=== PATIENT | female | born 1930 | race Two or more races ===

== ENCOUNTER 2018-03-27 12:02 | Inpatient (IN) | payer MEDICARE, OTHER ==
[~2018-03-27] VITALS: Ht 162.6 cm; Wt 78.7 kg
[2018-03-27] MEDS ORDERED: LIDO PO (14:31)
[2018-03-27] MEDS ORDERED: lidoderm TD (14:31)
[2018-03-27] MEDS ORDERED: ANTACID PO (14:31)
[2018-03-27] MEDS ORDERED: DOCU-109 PO (14:31)
[2018-03-27] MEDS ORDERED: OLAN10VI2 IM (14:31)
[2018-03-27] MEDS ORDERED: DIVA500T4 PO (14:31)
[2018-03-27] MEDS ORDERED: TYLENOL PO (14:31)
[2018-03-27] MEDS ORDERED: OLAN5TAB3 PO (14:31)
[2018-03-27] MEDS ORDERED: CALC400T5 PO (14:31)
[2018-03-27] MEDS ORDERED: POLY17PO5 PO (14:31)
[2018-03-27] MEDS ORDERED: LEVO75TA5 PO (14:31)
[2018-03-27] MEDS ORDERED: LISI10TA2 PO (14:31)
[2018-03-27] MEDS ORDERED: ACET650S19 PO (14:31)
[2018-03-27] MEDS ORDERED: ASPI325T11 PO (14:31)
[2018-03-27] MEDS ORDERED: CARV6.25 PO (14:31)
[2018-03-27] MEDS ORDERED: AMLO10TA6 PO (14:31)
[2018-03-27] MEDS ORDERED: TRIM300C17 PO (14:31)
[2018-03-27] MEDS ORDERED: HYDR-2867 PO (14:31)
[2018-03-27] MEDS ORDERED: ALBU2.5V14 NEB (14:31)
[2018-03-27] MEDS ORDERED: HYDR-2155 PO (14:31)
[2018-03-27] MEDS ORDERED: AMMO120C TP (14:31)
[2018-03-27] MEDS ORDERED: MELA5TAB PO (14:31)
[2018-03-27] MEDS ORDERED: BISA10SU55 RC (14:31)
[2018-03-27] MEDS ORDERED: PANT40TA3 PO (14:31)
[2018-03-27] MEDS ORDERED: SENN-142 PO (14:31)
[2018-03-27] MEDS ORDERED: BUDE10.2 IH (14:31)
[2018-03-27] MEDS ORDERED: TRAZ-85 PO ×2 (14:31→17:00)
[2018-03-27] MEDS ORDERED: ENOX40DI SQ (14:31)
[2018-03-27] MEDS ORDERED: ATOR20TA PO (14:31)
[2018-03-27] MEDS ORDERED: IPRA0.2S5 IH (14:31)
[2018-03-27] MEDS ORDERED: SODI50DR NS (14:31)
[2018-03-27] MEDS ORDERED: DONE10TA7 PO (14:31)
[2018-03-27] MEDS ORDERED: VENL50TA PO (14:32)
[2018-03-27] MEDS ORDERED: MULT1TAB52 PO (14:32)
[2018-03-27] MEDS ORDERED: PHEN100T82 PO (17:00)
[2018-03-27] MEDS ORDERED: occuvite PO (17:00)
[2018-03-27] MEDS ORDERED: ESTR30CR VG (17:00)
[2018-03-27 18:33] VITALS: BP 109/71
[2018-03-27] MEDS ORDERED: METHYL SALICYLATE/MENTHOL TOPICAL OINTMENT 29GM TUBE. TP PRN (18:45)
[2018-03-27] MEDS ORDERED: MAG HYDROX/AL HYDROX/SIMETH 30 ML ORAL.SUSP PO PRN (18:45)
[2018-03-27] MEDS ORDERED: MAGNESIUM HYDROXIDE 2,400 MG/30 ML ORAL.SUSP. PO PRN (18:45)
[2018-03-27] MEDS ORDERED: ESTROGENS, CONJ VAGINAL CREAM 30GM TUBE. VG PRN (19:15)
[2018-03-27] MEDS ORDERED: NON FORMULARY ITEM (Albuterol Sulfate (Albuterol Sulfate Conc Neb Soln) 2.5 MG) NEB PRN (19:15)
[2018-03-27] MEDS ORDERED: IPRATROPIUM BROMIDE 0.5 MG/2.5 ML NEBU. IH PRN (19:15)
[2018-03-27] MEDS ORDERED: traZODone 50 MG TABLET. PO PRN ×2 (19:45)
[2018-03-27] MEDS ORDERED: ALBUTEROL SULFATE 2.5 MG/3 ML NEBU. NEB PRN (19:45)
[2018-03-27] MEDS ORDERED: DOCUSATE SODIUM 100 MG CAPSULE PO PRN (19:45)
[2018-03-27] MEDS ORDERED: PHENAZOPYRIDINE 100 MG TABLET. PO PRN (19:45)
[2018-03-27] MEDS: ALBUTEROL SULFATE 2.5 MG/3 ML NEBU. NEB SCH (20:43)
[2018-03-27] MEDS: BUDESONIDE 0.5 MG/2 ML NEBU NEB SCH (20:43)
[2018-03-27] MEDS: DONEPEZIL HCL 10 MG TABLET PO SCH (20:53)
[2018-03-27] MEDS: ATORVASTATIN CALCIUM 20 MG TABLET PO SCH (20:53)
[2018-03-27] MEDS: hydrALAZINE 10 MG TABLET PO SCH (20:54)
[2018-03-27] MEDS: CARVEDILOL 6.25 MG TABLET PO SCH (20:55)
[2018-03-27] MEDS: PATCH REMOVAL. MC SCH (20:55)
[2018-03-27] MEDS: SODIUM CHL/ALOE VERA NASAL GEL 14.1GM TUBE. NS SCH (20:56)
[2018-03-27] MEDS ORDERED: DIVALPROEX ER 250 MG TAB.ER.24H. PO SCH (21:00)
[2018-03-27] MEDS ORDERED: SODIUM CHLORIDE 0.65% NASAL SPRAY 45ML BOTTLE. NS SCH (21:00)
[2018-03-27] MEDS ORDERED: NON FORMULARY ITEM (Budesonide/Formoterol Fumarate (Symbicort 160-4.5 Mcg Inhaler) 2 PUFF) IH SCH (21:00)
--- NOTE | 2018-03-27 22:46 | PDOC ---
Exam Note: Akshat Note: Please also refer to the separate dictated note~for this date of service dictated separately. Discussed the patient with Nursing staff reviewed the chart.~Reviewed interim history and current functioning. Reviewed vital signs,~ Labs/ Radiology~and current medications noted below. Continue current treatment with the changes noted in the dictated addendum note Assessment: Vital Signs: Vital Signs Date Time Temp Pulse Resp B/P (MAP) Pulse Ox O2 Delivery O2 Flow Rate FiO2 03/27/18 20:55 93 108/72 03/27/18 20:45 93 Room Air 03/27/18 18:33 98.9 22 2.0 Current Medications: Meds: Current Medications Multi-Ingredient Ointment (Analgesic [place]) 1 attila PRN QID PRN TP MUSCLE PAIN; Start 03/27/18 at 18:45 Al Hydroxide/Mg Hydroxide (Mylanta Plus Xs) 15 ml PRN AFTMEALHC PRN PO DYSPEPSIA; Start 03/27/18 at 18:45 Magnesium Hydroxide (Milk Of Magnesia) 2,400 mg PRN QHS PRN PO CONSTIPATION; Start 03/27/18 at 18:45 Aspirin (Aspirin Enteric Coated) 325 mg DAILY PO ; Start 03/28/18 at 09:00 Atorvastatin Calcium (Lipitor) 20 mg QHS PO Last administered on 03/27/18at 20: 53; Start 03/27/18 at 21:00 Estrogens Conjugated (Premarin) 0.5 attila PRN DAILY PRN VG vaginal dryness; Start 03/27/18 at 19:15 Acetaminophen/ Hydrocodone Bitart (Lortab 5/325) 1 tab PRN Q12HR PRN PO PAIN; Start 03/27/18 at 19:15 Ipratropium Basom (Atrovent) 0.2 mg PRN Q6HRS PRN IH SHORTNESS OF BREATH; Start 03/27/18 at 19:15 Levothyroxine Sodium (Synthroid) 75 mcg DAILYAC PO ; Start 03/28/18 at 07:30 Lisinopril (Prinivil) 10 mg DAILY PO ; Start 03/28/18 at 09:00 Acetaminophen (Tylenol) 650 mg PRN Q6HRS PRN PO PAIN / TEMP; Start 03/27/18 at 19:45 Non-Formulary Medication (Albuterol Sulfate (Albuterol Sulfate Conc Neb Soln)) 2.5 mg PRN Q6HRS PRN NEB SHORTNESS OF BREATH; Start 03/27/18 at 19:15; Status UNV Amlodipine Besylate (Norvasc) 10 mg DAILY PO ; Start 03/28/18 at 09:00 Non-Formulary Medication (Budesonide/ Formoterol Fumarate (Symbicort 160-4.5 Mcg Inhaler)) 2 puff BID IH ; Start 03/27/18 at 21:00; Status UNV Carvedilol (Coreg) 6.25 mg BIDWMEALS PO Last administered on 03/27/18at 20:55; Start 03/27/18 at 20:00 Divalproex Sodium (Depakote Er) 750 mg QHS PO Last administered on 03/27/18at 20:53; Start 03/27/18 at 21:00 Docusate Sodium (Colace) 100 mg PRN DAILY PRN PO HARD STOOLS; Start 03/27/18 at 19:45 Donepezil HCl (Aricept) 10 mg QHS PO Last administered on 03/27/18at 20:53; Start 03/27/18 at 21:00 Enoxaparin Sodium (Lovenox 40mg Syringe) 40 mg DAILY SQ ; Start 03/28/18 at 09: 00 Hydralazine HCl (Apresoline) 10 mg TID PO Last administered on 03/27/18at 20:54 ; Start 03/27/18 at 21:00 Multivitamins/ Calcium (Thera-M Plus) 1 tab DAILY PO ; Start 03/28/18 at 09:00 Olanzapine (ZyPREXA) 5 mg PRN DAILY PRN PO ANXIETY/AGITATION; Start 03/28/18 at 09:00 Pantoprazole Sodium (Protonix) 40 mg DAILYAC PO ; Start 03/28/18 at 07:30 Phenazopyridine HCl (Pyridium) 100 mg PRN TID PRN PO URINARY PAIN; Start 03/27 at 19:45 Polyethylene Glycol (miraLAX) 17 gm PRN BID PRN PO CONSTIPATION; Start at 09:00 Sodium Chloride (Saline Mist Nasal) 1 attila QID NS ; Start 03/27/18 at 21:00; Status Cancel Trazodone HCl (Desyrel) 25 mg PRN BID PRN PO ANXIETY/AGITATION; Start at 19:45 Trazodone HCl (Desyrel) 50 mg PRN QHS PRN PO INSOMNIA; Start 03/27/18 at 19:45 Lidocaine (Lidoderm) 1 patch DAILY TD ; Start 03/28/18 at 09:00 Multivitamins/ Minerals (I-Angelo) 1 tab DAILY PO ; Start 03/28/18 at 09:00 Miscellaneous (Lidoderm Patch Removal) 1 ea QHS MC Last administered on at 20:55; Start 03/27/18 at 21:00 Albuterol Sulfate (Ventolin) 2.5 mg PRN Q6HRS PRN NEB SHORTNESS OF BREATH; Start 03/27/18 at 19:45 Albuterol Sulfate (Ventolin) 2.5 mg RTQID NEB Last administered on 03/27/18at 20:43; Start 03/27/18 at 20:00 Budesonide (Pulmicort) 0.5 mg RTBID NEB Last administered on 03/27/18at 20:43; Start 03/27/18 at 20:00 Sodium Chloride ([place] Saline Nasal) 2 attila QID NS ; Start 03/27/18 at 21:00 Active Scripts Active Reported [occuvite] 1 Tab PO DAILY Pyridium (Phenazopyridine Hcl) 100 Mg Tablet 100 Mg PO PRN TID PRN Trazodone Hcl 50 Mg Tablet 25 Mg PO PRN QHS PRN Premarin (Estrogens, Conjugated) 30 Gm Cream.appl 0.5 Gm VG PRN DAILY PRN Multivitamins (Multivitamin) 1 Each Tablet 1 Tab PO DAILY Trazodone Hcl 50 Mg Tablet 25 Mg PO BID PRN [place] Saline (Sodium Chloride) 50 Ml Drops 2 Drop NS QID Miralax (Polyethylene Glycol 3350) 17 Gm Powd.pack 17 Gm PO PRN BID PRN Protonix (Pantoprazole Sodium) 40 Mg Tablet.dr 40 Mg PO DAILY Zyprexa (Olanzapine) 5 Mg Tablet 5 Mg PO PRN DAILY PRN Lisinopril 10 Mg Tablet 10 Mg PO DAILY [lidoderm] 1 Patch TD DAILY Levothyroxine Sodium 75 Mcg Tablet 75 Mcg PO DAILYAC Ipratropium Basom 0.2 Mg/1 Ml Solution 0.2 Mg IH PRN Q6HRS PRN Hydrocodone-Apap 5-325 (Hydrocodone Bit/Acetaminophen) 1 Each Tablet 1 Tab PO PRN Q12HR PRN Hydralazine Hcl 10 Mg Tablet 10 Mg PO TID Lovenox (Enoxaparin Sodium) 40 Mg/0.4 Ml Disp.syrin 40 Mg SQ DAILY Donepezil Hcl 10 Mg Tablet 10 Mg PO HS Colace (Docusate Sodium) 100 Mg Capsule 100 Mg PO PRN DAILY PRN Depakote Er (Divalproex Sodium) 500 Mg Tab.er.24h 750 Mg PO HS Coreg (Carvedilol) 6.25 Mg Tablet 6.25 Mg PO BIDWMEALS Symbicort 160-4.5 Mcg Inhaler (Budesonide/Formoterol Fumarate) 10.2 Gm Hfa.aer.ad 2 Puff IH BID Lipitor (Atorvastatin Calcium) 20 Mg Tablet 20 Mg PO QHS Aspirin Ec (Aspirin) 325 Mg Tablet.dr 325 Mg PO DAILY Amlodipine Besylate 10 Mg Tablet 10 Mg PO DAILY Albuterol Sulfate Conc Neb Soln (Albuterol Sulfate) 2.5 Mg/0.5 Ml Vial.neb 2.5 Mg NEB PRN Q6HRS PRN Acetaminophen 650 Mg/20.3 Ml Solution 650 Mg PO PRN Q6HRS PRN I have reviewed the current psychotropics carefully including drug interactions. Risk benefit ratio favors no change other than as noted in my dictated progress note. Diagnosis: Problems: (1) Anxiety disorder (2) Major depressive disorder, recurrent episode (3) Psychosis, atypical (4) Impulse control disorder GWEN ROY MD Mar 27, 2018 22:46
[2018-03-28] MEDS: ALBUTEROL SULFATE 2.5 MG/3 ML NEBU. NEB SCH ×4 (05:15→20:33)
[2018-03-28 06:44] VITALS: BP 134/89
[2018-03-28] MEDS ORDERED: LEVOTHYROXINE 75 MCG TABLET PO SCH (07:30)
[2018-03-28] MEDS: LIDOCAINE (700MG/PATCH) PATCH. TD SCH (08:39)
[2018-03-28] MEDS: amLODIPine BESYLATE 10 MG TABLET PO SCH (08:40)
[2018-03-28] MEDS: MULTIVITAMIN I-VITE TABLET. PO SCH (08:40)
[2018-03-28] MEDS: ENOXAPARIN 40 MG/0.4 ML SYRINGE. SQ SCH (08:40)
[2018-03-28] MEDS: hydrALAZINE 10 MG TABLET PO SCH ×3 (08:41→21:11)
[2018-03-28] MEDS: LISINOPRIL 10 MG TABLET PO SCH (08:41)
[2018-03-28] MEDS: CARVEDILOL 6.25 MG TABLET PO SCH ×2 (08:42→17:22)
[2018-03-28] MEDS: MULTIVITAMIN with MINERAL TABLET. PO SCH (08:42)
[2018-03-28] MEDS: PANTOPRAZOLE 40 MG TABLET. PO SCH (08:42)
[2018-03-28] MEDS: ASPIRIN ENTERIC COATED 325 MG TABLET.DR. PO SCH (08:42)
[2018-03-28] MEDS ORDERED: POLYETHYLENE GLYCOL 3350 17 GM PACKET. PO PRN (09:00)
[2018-03-28] MEDS: SODIUM CHL/ALOE VERA NASAL GEL 14.1GM TUBE. NS SCH ×2 (09:00→12:23)
[2018-03-28] MEDS: BUDESONIDE 0.5 MG/2 ML NEBU NEB SCH ×2 (10:05→20:33)
[2018-03-28] MEDS: OLANZapine 5 MG TABLET PO PRN (12:35)
[2018-03-28] MEDS ORDERED: SODIUM CHLORIDE 0.65% NASAL SPRAY 45ML BOTTLE. NS PRN (13:15)
[2018-03-28 13:37] LABS: BACTERIA,URINE FEW /HPF (0-FEW); BILIRUBIN,URINE NEG (NEG); CLARITY,URINE HAZY; COLOR,URINE AMBER; GLUCOSE,URINE NEG (NEG); HYALINE CASTS, URINE OCC /HPF; NITRITE,URINE NEG (NEG); SQUAMOUS EPITHELIAL CELL,UR FEW /LPF; UROBILINOGEN,URINE 0.2 mg/dL (0.2 mg/dL)
[2018-03-28 16:15] VITALS: BP 154/68
[2018-03-28 16:38] LABS: BASO % 1 % (0-3); EOS # 0.2 x10^3/uL (0.0-0.7); EOS % 3 % (0-3); HEMATOCRIT 38.8 % (36.0-47.0); HEMOGLOBIN 12.8 g/dL (12.0-15.5); LYMPH # 1.5 x10^3/uL (1.0-4.8); LYMPH % 22 % (24-48); MEAN CORPUSCULAR HEMOGLOBIN 31 pg (25-35); MEAN CORPUSCULAR HGB CONC 33 g/dL (31-37); MEAN CORPUSCULAR VOLUME 94 fL (79-100); MONO # 0.7 x10^3/uL (0.0-1.1); MONO % 11 % (0-9); NEUT # 4.3 x10^3uL (1.8-7.7); NEUT % 64 % (31-73); PLATELET COUNT 205 x10^3/uL (140-400); RED BLOOD COUNT 4.15 x10^6/uL (3.50-5.40); RED CELL DISTRIBUTION WIDTH 16.1 % (11.5-14.5); WHITE BLOOD COUNT 6.7 x10^3/uL (4.0-11.0)
[2018-03-28 16:46] LABS: ALBUMIN 2.7 g/dL (3.4-5.0); ALBUMIN/GLOBULIN RATIO 0.8 (1.0-1.7); CALCIUM 8.4 mg/dL (8.5-10.1); CREATININE 0.8 mg/dL (0.6-1.0); GFR 67.8; POTASSIUM 3.9 mmol/L (3.5-5.1); TOTAL BILIRUBIN 0.3 mg/dL (0.2-1.0)
[2018-03-28] MEDS: PATCH REMOVAL. MC SCH (21:00)
[2018-03-28] MEDS: DONEPEZIL HCL 10 MG TABLET PO SCH (21:11)
[2018-03-28] MEDS: ATORVASTATIN CALCIUM 20 MG TABLET PO SCH (21:11)
[2018-03-28] MEDS: DIVALPROEX 125 MG CAP.SPRINK PO SCH (21:18)
--- NOTE | 2018-03-28 22:07 | PDOC ---
Exam Note: Akshat Note: Please also refer to the separate dictated note~for this date of service dictated separately.~Patient seen individually. Discussed the patient with Nursing staff reviewed the chart.~Reviewed interim history and current functioning. Reviewed vital signs,~Labs/ Radiology~and current medications noted below. Continue current treatment with the changes noted in the dictated addendum note Assessment: Vital Signs: Vital Signs Date Time Temp Pulse Resp B/P (MAP) Pulse Ox O2 Delivery O2 Flow Rate FiO2 03/28/18 21:11 79 154/68 03/28/18 20:30 93 Nasal Cannula 2.0 03/28/18 16:15 98.2 18 Labs: Laboratory Tests Test 03/28/18 12:55 03/28/18 16:25 Urine Collection Type Unknown Urine Color Phyllis Urine Clarity Hazy Urine pH 7.0 Urine Specific [place] 1.015 Urine Protein Neg (NEG-TRACE) Urine Glucose (UA) Neg mg/dL (NEG) Urine Ketones (Stick) 15 mg/dL (NEG) Urine Blood Neg (NEG) Urine Nitrite Neg (NEG) Urine Bilirubin Neg (NEG) Urine Urobilinogen Dipstick 0.2 mg/dL (0.2 mg/dL) Urine Leukocyte Esterase Small (NEG) Urine RBC 1-2 /HPF (0-2) Urine WBC 11-20 /HPF (0-4) Urine Squamous Epithelial Cells Few /LPF Urine Bacteria Few /HPF (0-FEW) Urine Hyaline Casts Occ /HPF Urine Mucus Slight /LPF White Blood Count 6.7 x10^3/uL (4.0-11.0) Red Blood Count 4.15 x10^6/uL (3.50-5.40) Hemoglobin 12.8 g/dL (12.0-15.5) Hematocrit 38.8 % (36.0-47.0) Mean Corpuscular Volume 94 fL (79-100) Mean Corpuscular Hemoglobin 31 pg (25-35) Mean Corpuscular Hemoglobin Concent 33 g/dL (31-37) Red Cell Distribution Width 16.1 % (11.5-14.5) H Platelet Count 205 x10^3/uL (140-400) Neutrophils (%) (Auto) 64 % (31-73) Lymphocytes (%) (Auto) 22 % (24-48) L Monocytes (%) (Auto) 11 % (0-9) H Eosinophils (%) (Auto) 3 % (0-3) Basophils (%) (Auto) 1 % (0-3) Neutrophils # (Auto) 4.3 x10^3uL (1.8-7.7) Lymphocytes # (Auto) 1.5 x10^3/uL (1.0-4.8) Monocytes # (Auto) 0.7 x10^3/uL (0.0-1.1) Eosinophils # (Auto) 0.2 x10^3/uL (0.0-0.7) Basophils # (Auto) 0.0 x10^3/uL (0.0-0.2) Sodium Level 145 mmol/L (136-145) Potassium Level 3.9 mmol/L (3.5-5.1) Chloride Level 106 mmol/L (98-107) Carbon Dioxide Level 33 mmol/L (21-32) H Anion Gap 6 (6-14) Blood Urea Nitrogen 23 mg/dL (7-20) H Creatinine 0.8 mg/dL (0.6-1.0) Estimated GFR (Cockcroft-Gault) 67.8 BUN/Creatinine Ratio 29 (6-20) H Glucose Level 99 mg/dL (70-99) Calcium Level 8.4 mg/dL (8.5-10.1) L Magnesium Level 2.0 mg/dL (1.8-2.4) Total Bilirubin 0.3 mg/dL (0.2-1.0) Aspartate Amino Transferase (AST) 16 U/L (15-37) Alanine Aminotransferase (ALT) 21 U/L (14-59) Alkaline Phosphatase 43 U/L (46-116) L Total Protein 6.0 g/dL (6.4-8.2) L Albumin 2.7 g/dL (3.4-5.0) L Albumin/Globulin Ratio 0.8 (1.0-1.7) L Current Medications: Meds: Current Medications Multi-Ingredient Ointment (Analgesic [place]) 1 attila PRN QID PRN TP MUSCLE PAIN; Start 03/27/18 at 18:45 Al Hydroxide/Mg Hydroxide (Mylanta Plus Xs) 15 ml PRN AFTMEALHC PRN PO DYSPEPSIA; Start 03/27/18 at 18:45 Magnesium Hydroxide (Milk Of Magnesia) 2,400 mg PRN QHS PRN PO CONSTIPATION; Start 03/27/18 at 18:45 Aspirin (Aspirin Enteric Coated) 325 mg DAILY PO Last administered on at 08:42; Start 03/28/18 at 09:00 Atorvastatin Calcium (Lipitor) 20 mg QHS PO Last administered on 03/28/18at 21: 11; Start 03/27/18 at 21:00 Estrogens Conjugated (Premarin) 0.5 attila PRN DAILY PRN VG vaginal dryness; Start 03/27/18 at 19:15 Acetaminophen/ Hydrocodone Bitart (Lortab 5/325) 1 tab PRN Q12HR PRN PO PAIN; Start 03/27/18 at 19:15 Ipratropium [place] (Atrovent) 0.2 mg PRN Q6HRS PRN IH SHORTNESS OF BREATH; Start 03/27/18 at 19:15 Levothyroxine Sodium (Synthroid) 75 mcg DAILYAC PO Last administered on at 08:40; Start 03/28/18 at 07:30; Stop 03/28/18 at 12:26; Status DC Lisinopril (Prinivil) 10 mg DAILY PO Last administered on 03/28/18at 08:41; Start 03/28/18 at 09:00 Acetaminophen (Tylenol) 650 mg PRN Q6HRS PRN PO PAIN / TEMP; Start 03/27/18 at 19:45 Non-Formulary Medication (Albuterol Sulfate (Albuterol Sulfate Conc Neb Soln)) 2.5 mg PRN Q6HRS PRN NEB SHORTNESS OF BREATH; Start 03/27/18 at 19:15; Status UNV Amlodipine Besylate (Norvasc) 10 mg DAILY PO Last administered on 03/28/18at 08 :40; Start 03/28/18 at 09:00 Non-Formulary Medication (Budesonide/ Formoterol Fumarate (Symbicort 160-4.5 Mcg Inhaler)) 2 puff BID IH ; Start 03/27/18 at 21:00; Status UNV Carvedilol (Coreg) 6.25 mg BIDWMEALS PO Last administered on 03/28/18at 17:22; Start 03/27/18 at 20:00 Divalproex Sodium (Depakote Er) 750 mg QHS PO Last administered on 03/27/18at 20:53; Start 03/27/18 at 21:00; Stop 03/28/18 at 21:13; Status DC Docusate Sodium (Colace) 100 mg PRN DAILY PRN PO HARD STOOLS; Start 03/27/18 at 19:45 Donepezil HCl (Aricept) 10 mg QHS PO Last administered on 03/28/18at 21:11; Start 03/27/18 at 21:00 Enoxaparin Sodium (Lovenox 40mg Syringe) 40 mg DAILY SQ Last administered on at 08:40; Start 03/28/18 at 09:00 Hydralazine HCl (Apresoline) 10 mg TID PO Last administered on 03/28/18at 21:11 ; Start 03/27/18 at 21:00 Multivitamins/ Calcium (Thera-M Plus) 1 tab DAILY PO Last administered on 03/28at 08:42; Start 03/28/18 at 09:00 Olanzapine (ZyPREXA) 5 mg PRN DAILY PRN PO ANXIETY/AGITATION Last administered on 03/28/18at 12:35; Start 03/28/18 at 09:00 Pantoprazole Sodium (Protonix) 40 mg DAILYAC PO Last administered on at 08:42; Start 03/28/18 at 07:30 Phenazopyridine HCl (Pyridium) 100 mg PRN TID PRN PO URINARY PAIN; Start 03/27 at 19:45 Polyethylene Glycol (miraLAX) 17 gm PRN BID PRN PO CONSTIPATION; Start at 09:00 Sodium Chloride (Saline Mist Nasal) 1 attila QID NS ; Start 03/27/18 at 21:00; Status Cancel Trazodone HCl (Desyrel) 25 mg PRN BID PRN PO ANXIETY/AGITATION; Start at 19:45 Trazodone HCl (Desyrel) 50 mg PRN QHS PRN PO INSOMNIA; Start 03/27/18 at 19:45 Lidocaine (Lidoderm) 1 patch DAILY TD Last administered on 03/28/18at 08:39; Start 03/28/18 at 09:00 Multivitamins/ Minerals (I-Angelo) 1 tab DAILY PO Last administered on at 08:40; Start 03/28/18 at 09:00 Miscellaneous (Lidoderm Patch Removal) 1 ea QHS MC Last administered on at 21:00; Start 03/27/18 at 21:00 Albuterol Sulfate (Ventolin) 2.5 mg PRN Q6HRS PRN NEB SHORTNESS OF BREATH; Start 03/27/18 at 19:45 Albuterol Sulfate (Ventolin) 2.5 mg RTQID NEB Last administered on 03/28/18at 20:33; Start 03/27/18 at 20:00 Budesonide (Pulmicort) 0.5 mg RTBID NEB Last administered on 03/28/18at 20:33; Start 03/27/18 at 20:00 Sodium Chloride ([place] Saline Nasal) 2 attila QID NS ; Start 03/27/18 at 21:00; Stop 03/28/18 at 13:08; Status DC Levothyroxine Sodium (Synthroid) 75 mcg DAILY06 PO ; Start 03/29/18 at 06:00 Sodium Chloride (Saline Mist Nasal) 1 attila PRN QID PRN NS NASAL CONGESTION; Start 03/28/18 at 13:15 Divalproex Sodium (Depakote Sprinkles) 750 mg HS PO Last administered on at 21:18; Start 03/28/18 at 21:30 Active Scripts Active Reported [occuvite] 1 Tab PO DAILY Pyridium (Phenazopyridine Hcl) 100 Mg Tablet 100 Mg PO PRN TID PRN Trazodone Hcl 50 Mg Tablet 25 Mg PO PRN QHS PRN Premarin (Estrogens, Conjugated) 30 Gm Cream.appl 0.5 Gm VG PRN DAILY PRN Multivitamins (Multivitamin) 1 Each Tablet 1 Tab PO DAILY Trazodone Hcl 50 Mg Tablet 25 Mg PO BID PRN [place] Saline (Sodium Chloride) 50 Ml Drops 2 Drop NS QID Miralax (Polyethylene Glycol 3350) 17 Gm Powd.pack 17 Gm PO PRN BID PRN Protonix (Pantoprazole Sodium) 40 Mg Tablet.dr 40 Mg PO DAILY Zyprexa (Olanzapine) 5 Mg Tablet 5 Mg PO PRN DAILY PRN Lisinopril 10 Mg Tablet 10 Mg PO DAILY [lidoderm] 1 Patch TD DAILY Levothyroxine Sodium 75 Mcg Tablet 75 Mcg PO DAILYAC Ipratropium [place] 0.2 Mg/1 Ml Solution 0.2 Mg IH PRN Q6HRS PRN Hydrocodone-Apap 5-325 (Hydrocodone Bit/Acetaminophen) 1 Each Tablet 1 Tab PO PRN Q12HR PRN Hydralazine Hcl 10 Mg Tablet 10 Mg PO TID Lovenox (Enoxaparin Sodium) 40 Mg/0.4 Ml Disp.syrin 40 Mg SQ DAILY Donepezil Hcl 10 Mg Tablet 10 Mg PO HS Colace (Docusate Sodium) 100 Mg Capsule 100 Mg PO PRN DAILY PRN Depakote Er (Divalproex Sodium) 500 Mg Tab.er.24h 750 Mg PO HS Coreg (Carvedilol) 6.25 Mg Tablet 6.25 Mg PO BIDWMEALS Symbicort 160-4.5 Mcg Inhaler (Budesonide/Formoterol Fumarate) 10.2 Gm Hfa.aer.ad 2 Puff IH BID Lipitor (Atorvastatin Calcium) 20 Mg Tablet 20 Mg PO QHS Aspirin Ec (Aspirin) 325 Mg Tablet.dr 325 Mg PO DAILY Amlodipine Besylate 10 Mg Tablet 10 Mg PO DAILY Albuterol Sulfate Conc Neb Soln (Albuterol Sulfate) 2.5 Mg/0.5 Ml Vial.neb 2.5 Mg NEB PRN Q6HRS PRN Acetaminophen 650 Mg/20.3 Ml Solution 650 Mg PO PRN Q6HRS PRN I have reviewed the current psychotropics carefully including drug interactions. Risk benefit ratio favors no change other than as noted in my dictated progress note. Diagnosis: Problems: (1) Anxiety disorder (2) Major depressive disorder, recurrent episode (3) Psychosis, atypical (4) Impulse control disorder GWEN ROY MD Mar 28, 2018 22:07
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
--- NOTE | 2018-03-29 01:27 | PN ---
DATE: 03/28/2018 SUBJECTIVE: The patient was seen on rounds the evening of 03/28/2018. Discussed with nursing staff, reviewed the chart. The patient slept 7-1/4 hours previous evening. This morning, she was quite agitated, around breakfast time she threw her tray on the floor. Later, she was better, less anxious, but still remains depressed. REVIEW OF SYSTEMS: Ambulation impaired. I met with her in the room. She is lying in bed. No CV, , pulmonary, eye, ENT system symptoms on review. MENTAL STATUS EXAM: Oriented to herself and situation. Speech is coherent, rapid at times. Abstraction fair, computation impaired, language function intact, attention span short. Mood and affect remains anxious, labile. LABORATORY DATA: Reviewed. IMPRESSION: Major depressive disorder with psychotic features, anxiety disorder, unspecified; cognitive disorder, unspecified. PLAN: Continue Depakote 750 mg p.o. at bedtime. Valproic acid level is awaited. Zyprexa 5 mg daily p.r.n., trazodone 25 mg b.i.d. p.r.n., 15 mg p.r.n. bedtime, Aricept 10 mg a day. She did receive Zyprexa at 1400 p.r.n. Given her mood and anxiety symptoms, we will start Zoloft 25 mg a day, increasing in 3 days to 50 mg a day. We will consider adding Seroquel to augment the Zoloft as mood stabilizer depending on the valproic acid level. We will make further changes as clinically indicated. GWEN ROY MD DR: HERMELINDA/alexandra JOB#: [id number] / [id number]
[2018-03-29] MEDS: ALBUTEROL SULFATE 2.5 MG/3 ML NEBU. NEB SCH ×4 (05:37→20:18)
[2018-03-29] MEDS: LEVOTHYROXINE 75 MCG TABLET PO SCH (06:25)
[2018-03-29 06:28] VITALS: BP 108/68
[2018-03-29] MEDS: LIDOCAINE (700MG/PATCH) PATCH. TD SCH (07:58)
[2018-03-29] MEDS: hydrALAZINE 10 MG TABLET PO SCH ×3 (07:59→20:20)
[2018-03-29] MEDS: amLODIPine BESYLATE 10 MG TABLET PO SCH (07:59)
[2018-03-29] MEDS: LISINOPRIL 10 MG TABLET PO SCH (07:59)
[2018-03-29] MEDS: ENOXAPARIN 40 MG/0.4 ML SYRINGE. SQ SCH (07:59)
[2018-03-29] MEDS: ASPIRIN ENTERIC COATED 325 MG TABLET.DR. PO SCH (08:00)
[2018-03-29] MEDS: MULTIVITAMIN I-VITE TABLET. PO SCH (08:00)
[2018-03-29] MEDS: CARVEDILOL 6.25 MG TABLET PO SCH ×2 (08:00→17:00)
[2018-03-29] MEDS: PANTOPRAZOLE 40 MG TABLET. PO SCH (08:00)
[2018-03-29] MEDS: MULTIVITAMIN with MINERAL TABLET. PO SCH (08:00)
[2018-03-29] MEDS: SERTRALINE 25 MG TABLET. PO SCH (08:03)
[2018-03-29 08:50] LABS: VAL ACID 42 mcg/mL (50-100)
[2018-03-29] MEDS: BUDESONIDE 0.5 MG/2 ML NEBU NEB SCH ×2 (09:52→20:18)
[2018-03-29] MEDS: OLANZapine 5 MG TABLET PO PRN (10:50)
[2018-03-29] MEDS: HYDROcodone/APAP 5/325MG 1 TAB TABLET PO PRN ×2 (10:50→13:09)
[2018-03-29 11:03] LABS: THYROID STIM HORMONE (TSH) 4.51 uIU/mL (0.358-3.740)
[2018-03-29 13:12] LABS: THYROXINE 5.7 ug/dL (4.5-12.0)
[2018-03-29 16:21] VITALS: BP 96/64
[2018-03-29 20:19] VITALS: BP 93/70
[2018-03-29] MEDS: ATORVASTATIN CALCIUM 20 MG TABLET PO SCH (20:19)
[2018-03-29] MEDS: DONEPEZIL HCL 10 MG TABLET PO SCH (20:20)
[2018-03-29] MEDS: PATCH REMOVAL. MC SCH (20:20)
[2018-03-29] MEDS: DIVALPROEX 125 MG CAP.SPRINK PO SCH (20:20)
--- NOTE | 2018-03-29 22:54 | PDOC ---
Exam Note: Akshat Note: Please also refer to the separate dictated note~for this date of service dictated separately.~Patient seen individually. Discussed the patient with Nursing staff reviewed the chart.~Reviewed interim history and current functioning. Reviewed vital signs,~Labs/ Radiology~and current medications noted below. Continue current treatment with the changes noted in the dictated addendum note Assessment: Vital Signs: Vital Signs Date Time Temp Pulse Resp B/P (MAP) Pulse Ox O2 Delivery O2 Flow Rate FiO2 03/29/18 20:20 93 93/70 03/29/18 20:19 98 2.0 03/29/18 20:15 Nasal Cannula 03/29/18 16:21 98.8 24 I&O Intake and Output 03/29/18 07:01 Intake Total 480 ml Balance 480 ml Intake Oral 480 ml # Bowel Movements 1 Labs: Laboratory Tests Test 03/29/18 08:10 Valproic Acid Level 42 mcg/mL (50-100) L Valproic Acid Last Dose Date 03/28/2018 Valproic Acid Last Dose Time 0800 Current Medications: Meds: Current Medications Multi-Ingredient Ointment (Analgesic [place]) 1 attila PRN QID PRN TP MUSCLE PAIN; Start 03/27/18 at 18:45 Al Hydroxide/Mg Hydroxide (Mylanta Plus Xs) 15 ml PRN AFTMEALHC PRN PO DYSPEPSIA; Start 03/27/18 at 18:45 Magnesium Hydroxide (Milk Of Magnesia) 2,400 mg PRN QHS PRN PO CONSTIPATION; Start 03/27/18 at 18:45 Aspirin (Aspirin Enteric Coated) 325 mg DAILY PO Last administered on at 08:00; Start 03/28/18 at 09:00 Atorvastatin Calcium (Lipitor) 20 mg QHS PO Last administered on 03/29/18at 20: 19; Start 03/27/18 at 21:00 Estrogens Conjugated (Premarin) 0.5 attila PRN DAILY PRN VG vaginal dryness; Start 03/27/18 at 19:15 Acetaminophen/ Hydrocodone Bitart (Lortab 5/325) 1 tab PRN Q12HR PRN PO PAIN Last administered on 03/29/18at 13:09; Start 03/27/18 at 19:15 Ipratropium [place] (Atrovent) 0.2 mg PRN Q6HRS PRN IH SHORTNESS OF BREATH; Start 03/27/18 at 19:15 Levothyroxine Sodium (Synthroid) 75 mcg DAILYAC PO Last administered on at 08:40; Start 03/28/18 at 07:30; Stop 03/28/18 at 12:26; Status DC Lisinopril (Prinivil) 10 mg DAILY PO Last administered on 03/29/18at 07:59; Start 03/28/18 at 09:00 Acetaminophen (Tylenol) 650 mg PRN Q6HRS PRN PO PAIN / TEMP; Start 03/27/18 at 19:45 Non-Formulary Medication (Albuterol Sulfate (Albuterol Sulfate Conc Neb Soln)) 2.5 mg PRN Q6HRS PRN NEB SHORTNESS OF BREATH; Start 03/27/18 at 19:15; Status UNV Amlodipine Besylate (Norvasc) 10 mg DAILY PO Last administered on 03/29/18at 07 :59; Start 03/28/18 at 09:00 Non-Formulary Medication (Budesonide/ Formoterol Fumarate (Symbicort 160-4.5 Mcg Inhaler)) 2 puff BID IH ; Start 03/27/18 at 21:00; Status UNV Carvedilol (Coreg) 6.25 mg BIDWMEALS PO Last administered on 03/29/18at 08:00; Start 03/27/18 at 20:00 Divalproex Sodium (Depakote Er) 750 mg QHS PO Last administered on 03/27/18at 20:53; Start 03/27/18 at 21:00; Stop 03/28/18 at 21:13; Status DC Docusate Sodium (Colace) 100 mg PRN DAILY PRN PO HARD STOOLS; Start 03/27/18 at 19:45 Donepezil HCl (Aricept) 10 mg QHS PO Last administered on 03/29/18at 20:20; Start 03/27/18 at 21:00 Enoxaparin Sodium (Lovenox 40mg Syringe) 40 mg DAILY SQ Last administered on at 07:59; Start 03/28/18 at 09:00 Hydralazine HCl (Apresoline) 10 mg TID PO Last administered on 03/29/18at 14:16 ; Start 03/27/18 at 21:00 Multivitamins/ Calcium (Thera-M Plus) 1 tab DAILY PO Last administered on 03/29at 08:00; Start 03/28/18 at 09:00 Olanzapine (ZyPREXA) 5 mg PRN DAILY PRN PO ANXIETY/AGITATION Last administered on 03/29/18at 10:50; Start 03/28/18 at 09:00 Pantoprazole Sodium (Protonix) 40 mg DAILYAC PO Last administered on at 08:00; Start 03/28/18 at 07:30 Phenazopyridine HCl (Pyridium) 100 mg PRN TID PRN PO URINARY PAIN; Start 03/27 at 19:45 Polyethylene Glycol (miraLAX) 17 gm PRN BID PRN PO CONSTIPATION; Start at 09:00 Sodium Chloride (Saline Mist Nasal) 1 attila QID NS ; Start 03/27/18 at 21:00; Status Cancel Trazodone HCl (Desyrel) 25 mg PRN BID PRN PO ANXIETY/AGITATION; Start at 19:45 Trazodone HCl (Desyrel) 50 mg PRN QHS PRN PO INSOMNIA; Start 03/27/18 at 19:45 Lidocaine (Lidoderm) 1 patch DAILY TD Last administered on 03/29/18at 07:58; Start 03/28/18 at 09:00 Multivitamins/ Minerals (I-Angelo) 1 tab DAILY PO Last administered on at 08:00; Start 03/28/18 at 09:00 Miscellaneous (Lidoderm Patch Removal) 1 ea QHS MC Last administered on at 20:20; Start 03/27/18 at 21:00 Albuterol Sulfate (Ventolin) 2.5 mg PRN Q6HRS PRN NEB SHORTNESS OF BREATH; Start 03/27/18 at 19:45 Albuterol Sulfate (Ventolin) 2.5 mg RTQID NEB Last administered on 03/29/18at 20:18; Start 03/27/18 at 20:00 Budesonide (Pulmicort) 0.5 mg RTBID NEB Last administered on 03/29/18at 20:18; Start 03/27/18 at 20:00 Sodium Chloride ([place] Saline Nasal) 2 attila QID NS ; Start 03/27/18 at 21:00; Stop 03/28/18 at 13:08; Status DC Levothyroxine Sodium (Synthroid) 75 mcg DAILY06 PO Last administered on at 06:25; Start 03/29/18 at 06:00 Sodium Chloride (Saline Mist Nasal) 1 attila PRN QID PRN NS NASAL CONGESTION; Start 03/28/18 at 13:15 Divalproex Sodium (Depakote Sprinkles) 750 mg HS PO Last administered on at 20:20; Start 03/28/18 at 21:30 Sertraline HCl (Zoloft) 25 mg DAILY PO Last administered on 03/29/18at 08:03; Start 03/29/18 at 09:00; Stop 03/31/18 at 09:01 Sertraline HCl (Zoloft) 50 mg DAILY PO ; Start 04/01/18 at 09:00 Divalproex Sodium (Depakote Sprinkles) 500 mg BID94 PO ; Start 03/30/18 at 09: 00 Quetiapine Fumarate (SEROquel) 12.5 mg 1300 PO ; Start 03/30/18 at 13:00 Active Scripts Active Reported [occuvite] 1 Tab PO DAILY Pyridium (Phenazopyridine Hcl) 100 Mg Tablet 100 Mg PO PRN TID PRN Trazodone Hcl 50 Mg Tablet 25 Mg PO PRN QHS PRN Premarin (Estrogens, Conjugated) 30 Gm Cream.appl 0.5 Gm VG PRN DAILY PRN Multivitamins (Multivitamin) 1 Each Tablet 1 Tab PO DAILY Trazodone Hcl 50 Mg Tablet 25 Mg PO BID PRN [place] Saline (Sodium Chloride) 50 Ml Drops 2 Drop NS QID Miralax (Polyethylene Glycol 3350) 17 Gm Powd.pack 17 Gm PO PRN BID PRN Protonix (Pantoprazole Sodium) 40 Mg Tablet.dr 40 Mg PO DAILY Zyprexa (Olanzapine) 5 Mg Tablet 5 Mg PO PRN DAILY PRN Lisinopril 10 Mg Tablet 10 Mg PO DAILY [lidoderm] 1 Patch TD DAILY Levothyroxine Sodium 75 Mcg Tablet 75 Mcg PO DAILYAC Ipratropium [place] 0.2 Mg/1 Ml Solution 0.2 Mg IH PRN Q6HRS PRN Hydrocodone-Apap 5-325 (Hydrocodone Bit/Acetaminophen) 1 Each Tablet 1 Tab PO PRN Q12HR PRN Hydralazine Hcl 10 Mg Tablet 10 Mg PO TID Lovenox (Enoxaparin Sodium) 40 Mg/0.4 Ml Disp.syrin 40 Mg SQ DAILY Donepezil Hcl 10 Mg Tablet 10 Mg PO HS Colace (Docusate Sodium) 100 Mg Capsule 100 Mg PO PRN DAILY PRN Depakote Er (Divalproex Sodium) 500 Mg Tab.er.24h 750 Mg PO HS Coreg (Carvedilol) 6.25 Mg Tablet 6.25 Mg PO BIDWMEALS Symbicort 160-4.5 Mcg Inhaler (Budesonide/Formoterol Fumarate) 10.2 Gm Hfa.aer.ad 2 Puff IH BID Lipitor (Atorvastatin Calcium) 20 Mg Tablet 20 Mg PO QHS Aspirin Ec (Aspirin) 325 Mg Tablet.dr 325 Mg PO DAILY Amlodipine Besylate 10 Mg Tablet 10 Mg PO DAILY Albuterol Sulfate Conc Neb Soln (Albuterol Sulfate) 2.5 Mg/0.5 Ml Vial.neb 2.5 Mg NEB PRN Q6HRS PRN Acetaminophen 650 Mg/20.3 Ml Solution 650 Mg PO PRN Q6HRS PRN I have reviewed the current psychotropics carefully including drug interactions. Risk benefit ratio favors no change other than as noted in my dictated progress note. Diagnosis: Problems: (1) Anxiety disorder (2) Major depressive disorder, recurrent episode (3) Psychosis, atypical (4) Impulse control disorder GWEN ROY MD Mar 29, 2018 22:53
[2018-03-30 00:07] LABS: HEMOGLOBIN A1C 4.9 % (4.8-5.6)
[2018-03-30] MEDS: LEVOTHYROXINE 75 MCG TABLET PO SCH (04:55)
[2018-03-30] MEDS: ALBUTEROL SULFATE 2.5 MG/3 ML NEBU. NEB SCH ×4 (06:12→20:33)
[2018-03-30 06:31] VITALS: BP 133/83
[2018-03-30] MEDS: amLODIPine BESYLATE 10 MG TABLET PO SCH (07:49)
[2018-03-30] MEDS: hydrALAZINE 10 MG TABLET PO SCH ×3 (07:50→20:18)
[2018-03-30] MEDS: CARVEDILOL 6.25 MG TABLET PO SCH ×2 (07:50→16:59)
[2018-03-30] MEDS: MULTIVITAMIN I-VITE TABLET. PO SCH (07:50)
[2018-03-30] MEDS: SERTRALINE 25 MG TABLET. PO SCH (07:51)
[2018-03-30] MEDS: ASPIRIN ENTERIC COATED 325 MG TABLET.DR. PO SCH (07:52)
[2018-03-30] MEDS: MULTIVITAMIN with MINERAL TABLET. PO SCH (07:52)
[2018-03-30] MEDS: LISINOPRIL 10 MG TABLET PO SCH (07:52)
[2018-03-30] MEDS: PANTOPRAZOLE 40 MG TABLET. PO SCH (07:52)
[2018-03-30] MEDS: LIDOCAINE (700MG/PATCH) PATCH. TD SCH (07:53)
[2018-03-30] MEDS: ENOXAPARIN 40 MG/0.4 ML SYRINGE. SQ SCH (07:53)
[2018-03-30] MEDS ORDERED: DIVALPROEX 125 MG CAP.SPRINK PO SCH (09:00)
[2018-03-30] MEDS: HYDROcodone/APAP 5/325MG 1 TAB TABLET PO PRN ×2 (09:06→20:16)
[2018-03-30] MEDS: BUDESONIDE 0.5 MG/2 ML NEBU NEB SCH ×2 (11:38→20:33)
[2018-03-30] MEDS: QUEtiapine 25 MG TABLET. PO SCH (13:04)
[2018-03-30 16:14] VITALS: BP 104/60
--- NOTE | 2018-03-30 18:55 | PDOC ---
Exam Note: Akshat Note: Please also refer to the separate dictated note~for this date of service dictated separately.~Patient seen individually. Discussed the patient with Nursing staff reviewed the chart.~Reviewed interim history and current functioning. Reviewed vital signs,~Labs/ Radiology~and current medications noted below. Continue current treatment with the changes noted in the dictated addendum note Assessment: Vital Signs: Vital Signs Date Time Temp Pulse Resp B/P (MAP) Pulse Ox O2 Delivery O2 Flow Rate FiO2 03/30/18 16:59 76 104/60 03/30/18 16:21 98 Nasal Cannula 2.0 03/30/18 16:14 97.6 20 I&O Intake and Output 03/30/18 07:01 Intake Total 240 ml Balance 240 ml Intake Oral 240 ml Current Medications: Meds: Current Medications Multi-Ingredient Ointment (Analgesic [place]) 1 attila PRN QID PRN TP MUSCLE PAIN; Start 03/27/18 at 18:45 Al Hydroxide/Mg Hydroxide (Mylanta Plus Xs) 15 ml PRN AFTMEALHC PRN PO DYSPEPSIA; Start 03/27/18 at 18:45 Magnesium Hydroxide (Milk Of Magnesia) 2,400 mg PRN QHS PRN PO CONSTIPATION; Start 03/27/18 at 18:45 Aspirin (Aspirin Enteric Coated) 325 mg DAILY PO Last administered on at 07:52; Start 03/28/18 at 09:00 Atorvastatin Calcium (Lipitor) 20 mg QHS PO Last administered on 03/29/18at 20: 19; Start 03/27/18 at 21:00 Estrogens Conjugated (Premarin) 0.5 attila PRN DAILY PRN VG vaginal dryness; Start 03/27/18 at 19:15 Acetaminophen/ Hydrocodone Bitart (Lortab 5/325) 1 tab PRN Q12HR PRN PO PAIN Last administered on 03/30/18at 09:06; Start 03/27/18 at 19:15; Stop 03/30/18 at 15:02; Status DC Ipratropium [place] (Atrovent) 0.2 mg PRN Q6HRS PRN IH SHORTNESS OF BREATH; Start 03/27/18 at 19:15 Levothyroxine Sodium (Synthroid) 75 mcg DAILYAC PO Last administered on at 08:40; Start 03/28/18 at 07:30; Stop 03/28/18 at 12:26; Status DC Lisinopril (Prinivil) 10 mg DAILY PO Last administered on 03/30/18at 07:52; Start 03/28/18 at 09:00 Acetaminophen (Tylenol) 650 mg PRN Q6HRS PRN PO PAIN / TEMP; Start 03/27/18 at 19:45 Non-Formulary Medication (Albuterol Sulfate (Albuterol Sulfate Conc Neb Soln)) 2.5 mg PRN Q6HRS PRN NEB SHORTNESS OF BREATH; Start 03/27/18 at 19:15; Status UNV Amlodipine Besylate (Norvasc) 10 mg DAILY PO Last administered on 03/30/18at 07 :49; Start 03/28/18 at 09:00 Non-Formulary Medication (Budesonide/ Formoterol Fumarate (Symbicort 160-4.5 Mcg Inhaler)) 2 puff BID IH ; Start 03/27/18 at 21:00; Status UNV Carvedilol (Coreg) 6.25 mg BIDWMEALS PO Last administered on 03/30/18at 16:59; Start 03/27/18 at 20:00 Divalproex Sodium (Depakote Er) 750 mg QHS PO Last administered on 03/27/18at 20:53; Start 03/27/18 at 21:00; Stop 03/28/18 at 21:13; Status DC Docusate Sodium (Colace) 100 mg PRN DAILY PRN PO HARD STOOLS; Start 03/27/18 at 19:45 Donepezil HCl (Aricept) 10 mg QHS PO Last administered on 03/29/18at 20:20; Start 03/27/18 at 21:00 Enoxaparin Sodium (Lovenox 40mg Syringe) 40 mg DAILY SQ Last administered on at 07:53; Start 03/28/18 at 09:00 Hydralazine HCl (Apresoline) 10 mg TID PO Last administered on 03/30/18at 07:50 ; Start 03/27/18 at 21:00 Multivitamins/ Calcium (Thera-M Plus) 1 tab DAILY PO Last administered on 03/30at 07:52; Start 03/28/18 at 09:00 Olanzapine (ZyPREXA) 5 mg PRN DAILY PRN PO ANXIETY/AGITATION Last administered on 03/29/18at 10:50; Start 03/28/18 at 09:00 Pantoprazole Sodium (Protonix) 40 mg DAILYAC PO Last administered on at 07:52; Start 03/28/18 at 07:30 Phenazopyridine HCl (Pyridium) 100 mg PRN TID PRN PO URINARY PAIN; Start 03/27 at 19:45 Polyethylene Glycol (miraLAX) 17 gm PRN BID PRN PO CONSTIPATION; Start at 09:00 Sodium Chloride (Saline Mist Nasal) 1 attila QID NS ; Start 03/27/18 at 21:00; Status Cancel Trazodone HCl (Desyrel) 25 mg PRN BID PRN PO ANXIETY/AGITATION; Start at 19:45 Trazodone HCl (Desyrel) 50 mg PRN QHS PRN PO INSOMNIA; Start 03/27/18 at 19:45 Lidocaine (Lidoderm) 1 patch DAILY TD Last administered on 03/30/18at 07:53; Start 03/28/18 at 09:00 Multivitamins/ Minerals (I-Angelo) 1 tab DAILY PO Last administered on at 07:50; Start 03/28/18 at 09:00 Miscellaneous (Lidoderm Patch Removal) 1 ea QHS MC Last administered on at 20:20; Start 03/27/18 at 21:00 Albuterol Sulfate (Ventolin) 2.5 mg PRN Q6HRS PRN NEB SHORTNESS OF BREATH; Start 03/27/18 at 19:45 Albuterol Sulfate (Ventolin) 2.5 mg RTQID NEB Last administered on 03/30/18at 16:17; Start 03/27/18 at 20:00 Budesonide (Pulmicort) 0.5 mg RTBID NEB Last administered on 03/30/18at 11:38; Start 03/27/18 at 20:00 Sodium Chloride ([place] Saline Nasal) 2 attila QID NS ; Start 03/27/18 at 21:00; Stop 03/28/18 at 13:08; Status DC Levothyroxine Sodium (Synthroid) 75 mcg DAILY06 PO Last administered on at 04:55; Start 03/29/18 at 06:00 Sodium Chloride (Saline Mist Nasal) 1 attila PRN QID PRN NS NASAL CONGESTION; Start 03/28/18 at 13:15 Divalproex Sodium (Depakote Sprinkles) 750 mg HS PO Last administered on at 20:20; Start 03/28/18 at 21:30; Stop 03/30/18 at 14:27; Status DC Sertraline HCl (Zoloft) 25 mg DAILY PO Last administered on 03/30/18at 07:51; Start 03/29/18 at 09:00; Stop 03/31/18 at 09:01 Sertraline HCl (Zoloft) 50 mg DAILY PO ; Start 04/01/18 at 09:00 Divalproex Sodium (Depakote Sprinkles) 500 mg BID94 PO Last administered on at 07:55; Start 03/30/18 at 09:00; Stop 03/30/18 at 14:27; Status DC Quetiapine Fumarate (SEROquel) 12.5 mg 1300 PO Last administered on 03/30/18at 13:04; Start 03/30/18 at 13:00 Divalproex Sodium (Depakote Sprinkles) 500 mg BID PO ; Start 03/30/18 at 21:00 Acetaminophen/ Hydrocodone Bitart (Lortab 5/325) 1 tab PRN Q6HRS PRN PO PAIN; Start 03/30/18 at 15:15 Active Scripts Active Reported [occuvite] 1 Tab PO DAILY Pyridium (Phenazopyridine Hcl) 100 Mg Tablet 100 Mg PO PRN TID PRN Trazodone Hcl 50 Mg Tablet 25 Mg PO PRN QHS PRN Premarin (Estrogens, Conjugated) 30 Gm Cream.appl 0.5 Gm VG PRN DAILY PRN Multivitamins (Multivitamin) 1 Each Tablet 1 Tab PO DAILY Trazodone Hcl 50 Mg Tablet 25 Mg PO BID PRN [place] Saline (Sodium Chloride) 50 Ml Drops 2 Drop NS QID Miralax (Polyethylene Glycol 3350) 17 Gm Powd.pack 17 Gm PO PRN BID PRN Protonix (Pantoprazole Sodium) 40 Mg Tablet.dr 40 Mg PO DAILY Zyprexa (Olanzapine) 5 Mg Tablet 5 Mg PO PRN DAILY PRN Lisinopril 10 Mg Tablet 10 Mg PO DAILY [lidoderm] 1 Patch TD DAILY Levothyroxine Sodium 75 Mcg Tablet 75 Mcg PO DAILYAC Ipratropium [place] 0.2 Mg/1 Ml Solution 0.2 Mg IH PRN Q6HRS PRN Hydrocodone-Apap 5-325 (Hydrocodone Bit/Acetaminophen) 1 Each Tablet 1 Tab PO PRN Q12HR PRN Hydralazine Hcl 10 Mg Tablet 10 Mg PO TID Lovenox (Enoxaparin Sodium) 40 Mg/0.4 Ml Disp.syrin 40 Mg SQ DAILY Donepezil Hcl 10 Mg Tablet 10 Mg PO HS Colace (Docusate Sodium) 100 Mg Capsule 100 Mg PO PRN DAILY PRN Depakote Er (Divalproex Sodium) 500 Mg Tab.er.24h 750 Mg PO HS Coreg (Carvedilol) 6.25 Mg Tablet 6.25 Mg PO BIDWMEALS Symbicort 160-4.5 Mcg Inhaler (Budesonide/Formoterol Fumarate) 10.2 Gm Hfa.aer.ad 2 Puff IH BID Lipitor (Atorvastatin Calcium) 20 Mg Tablet 20 Mg PO QHS Aspirin Ec (Aspirin) 325 Mg Tablet.dr 325 Mg PO DAILY Amlodipine Besylate 10 Mg Tablet 10 Mg PO DAILY Albuterol Sulfate Conc Neb Soln (Albuterol Sulfate) 2.5 Mg/0.5 Ml Vial.neb 2.5 Mg NEB PRN Q6HRS PRN Acetaminophen 650 Mg/20.3 Ml Solution 650 Mg PO PRN Q6HRS PRN I have reviewed the current psychotropics carefully including drug interactions. Risk benefit ratio favors no change other than as noted in my dictated progress note. Diagnosis: Problems: (1) Anxiety disorder (2) Major depressive disorder, recurrent episode (3) Psychosis, atypical (4) Impulse control disorder GWEN ROY MD Mar 30, 2018 18:55
[2018-03-30] MEDS: PATCH REMOVAL. MC SCH (20:11)
[2018-03-30] MEDS: DONEPEZIL HCL 10 MG TABLET PO SCH (20:15)
[2018-03-30] MEDS: ATORVASTATIN CALCIUM 20 MG TABLET PO SCH (20:15)
[2018-03-30] MEDS: DIVALPROEX 125 MG CAP.SPRINK PO SCH (20:15)
[2018-03-31 04:55] VITALS: BP 100/60
[2018-03-31] MEDS: ALBUTEROL SULFATE 2.5 MG/3 ML NEBU. NEB SCH ×4 (05:10→20:32)
[2018-03-31] MEDS: LEVOTHYROXINE 75 MCG TABLET PO SCH (05:38)
[2018-03-31] MEDS: PANTOPRAZOLE 40 MG TABLET. PO SCH (08:37)
[2018-03-31] MEDS: DIVALPROEX 125 MG CAP.SPRINK PO SCH ×2 (08:38→19:12)
[2018-03-31] MEDS: MULTIVITAMIN with MINERAL TABLET. PO SCH (08:38)
[2018-03-31] MEDS: amLODIPine BESYLATE 10 MG TABLET PO SCH (08:38)
[2018-03-31] MEDS: SERTRALINE 25 MG TABLET. PO SCH (08:39)
[2018-03-31] MEDS: LISINOPRIL 10 MG TABLET PO SCH (08:39)
[2018-03-31] MEDS: MULTIVITAMIN I-VITE TABLET. PO SCH (08:39)
[2018-03-31] MEDS: hydrALAZINE 10 MG TABLET PO SCH (08:39)
[2018-03-31] MEDS: ASPIRIN ENTERIC COATED 325 MG TABLET.DR. PO SCH (08:39)
[2018-03-31] MEDS: CARVEDILOL 6.25 MG TABLET PO SCH ×2 (08:40→17:18)
[2018-03-31] MEDS: LIDOCAINE (700MG/PATCH) PATCH. TD SCH (08:40)
[2018-03-31] MEDS: ENOXAPARIN 40 MG/0.4 ML SYRINGE. SQ SCH (08:41)
[2018-03-31] MEDS: BUDESONIDE 0.5 MG/2 ML NEBU NEB SCH ×2 (10:08→20:32)
[2018-03-31] MEDS: QUEtiapine 25 MG TABLET. PO SCH (13:17)
[2018-03-31 16:41] VITALS: BP 128/88
[2018-03-31 16:51] VITALS: BP 128/88
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
[2018-03-31] MEDS: HYDROcodone/APAP 5/325MG 1 TAB TABLET PO PRN (18:36)
--- NOTE | 2018-03-31 19:03 | PDOC ---
Exam Note: Akshat Note: Please also refer to the separate dictated note~for this date of service dictated separately.~Patient seen individually. Discussed the patient with Nursing staff reviewed the chart.~Reviewed interim history and current functioning. Reviewed vital signs,~Labs/ Radiology~and current medications noted below. Continue current treatment with the changes noted in the dictated addendum note Assessment: Vital Signs: Vital Signs Date Time Temp Pulse Resp B/P (MAP) Pulse Ox O2 Delivery O2 Flow Rate FiO2 03/31/18 17:18 91 128/88 03/31/18 16:51 98.0 20 97 03/31/18 15:51 Nasal Cannula 2.0 I&O Intake and Output 03/31/18 07:01 Intake Total 960 ml Balance 960 ml Intake Oral 960 ml # Bowel Movements 6 Current Medications: Meds: Current Medications Multi-Ingredient Ointment (Analgesic [place]) 1 attila PRN QID PRN TP MUSCLE PAIN; Start 03/27/18 at 18:45 Al Hydroxide/Mg Hydroxide (Mylanta Plus Xs) 15 ml PRN AFTMEALHC PRN PO DYSPEPSIA; Start 03/27/18 at 18:45 Magnesium Hydroxide (Milk Of Magnesia) 2,400 mg PRN QHS PRN PO CONSTIPATION; Start 03/27/18 at 18:45 Aspirin (Aspirin Enteric Coated) 325 mg DAILY PO Last administered on at 08:39; Start 03/28/18 at 09:00 Atorvastatin Calcium (Lipitor) 20 mg QHS PO Last administered on 03/30/18at 20: 15; Start 03/27/18 at 21:00 Estrogens Conjugated (Premarin) 0.5 attila PRN DAILY PRN VG vaginal dryness; Start 03/27/18 at 19:15 Acetaminophen/ Hydrocodone Bitart (Lortab 5/325) 1 tab PRN Q12HR PRN PO PAIN Last administered on 03/30/18at 09:06; Start 03/27/18 at 19:15; Stop 03/30/18 at 15:02; Status DC Ipratropium [place] (Atrovent) 0.2 mg PRN Q6HRS PRN IH SHORTNESS OF BREATH; Start 03/27/18 at 19:15 Levothyroxine Sodium (Synthroid) 75 mcg DAILYAC PO Last administered on at 08:40; Start 03/28/18 at 07:30; Stop 03/28/18 at 12:26; Status DC Lisinopril (Prinivil) 10 mg DAILY PO Last administered on 03/31/18at 08:39; Start 03/28/18 at 09:00 Acetaminophen (Tylenol) 650 mg PRN Q6HRS PRN PO PAIN / TEMP; Start 03/27/18 at 19:45 Non-Formulary Medication (Albuterol Sulfate (Albuterol Sulfate Conc Neb Soln)) 2.5 mg PRN Q6HRS PRN NEB SHORTNESS OF BREATH; Start 03/27/18 at 19:15; Status UNV Amlodipine Besylate (Norvasc) 10 mg DAILY PO Last administered on 03/31/18at 08 :38; Start 03/28/18 at 09:00; Stop 03/31/18 at 12:27; Status DC Non-Formulary Medication (Budesonide/ Formoterol Fumarate (Symbicort 160-4.5 Mcg Inhaler)) 2 puff BID IH ; Start 03/27/18 at 21:00; Status UNV Carvedilol (Coreg) 6.25 mg BIDWMEALS PO Last administered on 03/31/18at 17:18; Start 03/27/18 at 20:00 Divalproex Sodium (Depakote Er) 750 mg QHS PO Last administered on 03/27/18at 20:53; Start 03/27/18 at 21:00; Stop 03/28/18 at 21:13; Status DC Docusate Sodium (Colace) 100 mg PRN DAILY PRN PO HARD STOOLS; Start 03/27/18 at 19:45 Donepezil HCl (Aricept) 10 mg QHS PO Last administered on 03/30/18at 20:15; Start 03/27/18 at 21:00 Enoxaparin Sodium (Lovenox 40mg Syringe) 40 mg DAILY SQ Last administered on at 08:41; Start 03/28/18 at 09:00 Hydralazine HCl (Apresoline) 10 mg TID PO Last administered on 03/31/18at 08:39 ; Start 03/27/18 at 21:00; Stop 03/31/18 at 12:27; Status DC Multivitamins/ Calcium (Thera-M Plus) 1 tab DAILY PO Last administered on 03/31 08:38; Start 03/28/18 at 09:00 Olanzapine (ZyPREXA) 5 mg PRN DAILY PRN PO ANXIETY/AGITATION Last administered on 03/29/18at 10:50; Start 03/28/18 at 09:00 Pantoprazole Sodium (Protonix) 40 mg DAILYAC PO Last administered on 08:37; Start 03/28/18 at 07:30 Phenazopyridine HCl (Pyridium) 100 mg PRN TID PRN PO URINARY PAIN; Start 03/27 at 19:45 Polyethylene Glycol (miraLAX) 17 gm PRN BID PRN PO CONSTIPATION; Start at 09:00 Sodium Chloride (Saline Mist Nasal) 1 attila QID NS ; Start 03/27/18 at 21:00; Status Cancel Trazodone HCl (Desyrel) 25 mg PRN BID PRN PO ANXIETY/AGITATION; Start at 19:45 Trazodone HCl (Desyrel) 50 mg PRN QHS PRN PO INSOMNIA; Start 03/27/18 at 19:45 Lidocaine (Lidoderm) 1 patch DAILY TD Last administered on 03/31/18 08:40; Start 03/28/18 at 09:00 Multivitamins/ Minerals (I-Angel[place]) 1 tab DAILY PO Last administered on 08:39; Start 03/28/18 at 09:00 Miscellaneous (Lidoderm Patch Removal) 1 ea QHS MC Last administered on at 20:11; Start 03/27/18 at 21:00 Albuterol Sulfate (Ventolin) 2.5 mg PRN Q6HRS PRN NEB SHORTNESS OF BREATH; Start 03/27/18 at 19:45 Albuterol Sulfate (Ventolin) 2.5 mg RTQID NEB Last administered on 03/31/18at 15:51; Start 03/27/18 at 20:00 Budesonide (Pulmicort) 0.5 mg RTBID NEB Last administered on 03/31/18at 10:08; Start 03/27/18 at 20:00 Sodium Chloride ([place] Saline Nasal) 2 attila QID NS ; Start 03/27/18 at 21:00; Stop 03/28/18 at 13:08; Status DC Levothyroxine Sodium (Synthroid) 75 mcg DAILY06 PO Last administered on at 05:38; Start 03/29/18 at 06:00 Sodium Chloride (Saline Mist Nasal) 1 attila PRN QID PRN NS NASAL CONGESTION; Start 03/28/18 at 13:15 Divalproex Sodium (Depakote Sprinkles) 750 mg HS PO Last administered on at 20:20; Start 03/28/18 at 21:30; Stop 03/30/18 at 14:27; Status DC Sertraline HCl (Zoloft) 25 mg DAILY PO Last administered on 03/31/18at 08:39; Start 03/29/18 at 09:00; Stop 03/31/18 at 09:01; Status DC Sertraline HCl (Zoloft) 50 mg DAILY PO ; Start 04/01/18 at 09:00 Divalproex Sodium (Depakote Sprinkles) 500 mg BID94 PO Last administered on at 07:55; Start 03/30/18 at 09:00; Stop 03/30/18 at 14:27; Status DC Quetiapine Fumarate (SEROquel) 12.5 mg 1300 PO Last administered on 03/31/18at 13:17; Start 03/30/18 at 13:00 Divalproex Sodium (Depakote Sprinkles) 500 mg BID PO Last administered on 03/31at 08:38; Start 03/30/18 at 21:00 Acetaminophen/ Hydrocodone Bitart (Lortab 5/325) 1 tab PRN Q6HRS PRN PO PAIN Last administered on 03/31/18at 18:36; Start 03/30/18 at 15:15 Olanzapine (ZyPREXA ZYDIS) 2.5 mg PRN Q2HR PRN PO PSYCHOSIS; Start 03/30/18 at 19:15 Active Scripts Active Reported [occuvite] 1 Tab PO DAILY Pyridium (Phenazopyridine Hcl) 100 Mg Tablet 100 Mg PO PRN TID PRN Trazodone Hcl 50 Mg Tablet 25 Mg PO PRN QHS PRN Premarin (Estrogens, Conjugated) 30 Gm Cream.appl 0.5 Gm VG PRN DAILY PRN Multivitamins (Multivitamin) 1 Each Tablet 1 Tab PO DAILY Trazodone Hcl 50 Mg Tablet 25 Mg PO BID PRN [place] Saline (Sodium Chloride) 50 Ml Drops 2 Drop NS QID Miralax (Polyethylene Glycol 3350) 17 Gm Powd.pack 17 Gm PO PRN BID PRN Protonix (Pantoprazole Sodium) 40 Mg Tablet.dr 40 Mg PO DAILY Zyprexa (Olanzapine) 5 Mg Tablet 5 Mg PO PRN DAILY PRN Lisinopril 10 Mg Tablet 10 Mg PO DAILY [lidoderm] 1 Patch TD DAILY Levothyroxine Sodium 75 Mcg Tablet 75 Mcg PO DAILYAC Ipratropium [place] 0.2 Mg/1 Ml Solution 0.2 Mg IH PRN Q6HRS PRN Hydrocodone-Apap 5-325 (Hydrocodone Bit/Acetaminophen) 1 Each Tablet 1 Tab PO PRN Q12HR PRN Hydralazine Hcl 10 Mg Tablet 10 Mg PO TID Lovenox (Enoxaparin Sodium) 40 Mg/0.4 Ml Disp.syrin 40 Mg SQ DAILY Donepezil Hcl 10 Mg Tablet 10 Mg PO HS Colace (Docusate Sodium) 100 Mg Capsule 100 Mg PO PRN DAILY PRN Depakote Er (Divalproex Sodium) 500 Mg Tab.er.24h 750 Mg PO HS Coreg (Carvedilol) 6.25 Mg Tablet 6.25 Mg PO BIDWMEALS Symbicort 160-4.5 Mcg Inhaler (Budesonide/Formoterol Fumarate) 10.2 Gm Hfa.aer.ad 2 Puff IH BID Lipitor (Atorvastatin Calcium) 20 Mg Tablet 20 Mg PO QHS Aspirin Ec (Aspirin) 325 Mg Tablet. 325 Mg PO DAILY Amlodipine Besylate 10 Mg Tablet 10 Mg PO DAILY Albuterol Sulfate Conc Neb Soln (Albuterol Sulfate) 2.5 Mg/0.5 Ml Vial.neb 2.5 Mg NEB PRN Q6HRS PRN Acetaminophen 650 Mg/20.3 Ml Solution 650 Mg PO PRN Q6HRS PRN I have reviewed the current psychotropics carefully including drug interactions. Risk benefit ratio favors no change other than as noted in my dictated progress note. Diagnosis: Problems: (1) Anxiety disorder (2) Major depressive disorder, recurrent episode (3) Psychosis, atypical (4) Impulse control disorder GWEN ROY MD Mar 31, 2018 19:03
[2018-03-31] MEDS: DONEPEZIL HCL 10 MG TABLET PO SCH (19:11)
[2018-03-31] MEDS: ATORVASTATIN CALCIUM 20 MG TABLET PO SCH (19:11)
[2018-03-31] MEDS: PATCH REMOVAL. MC SCH (20:32)
[2018-04-01] MEDS: ALBUTEROL SULFATE 2.5 MG/3 ML NEBU. NEB SCH ×4 (05:26→19:53)
[2018-04-01 06:05] VITALS: BP 144/73
[2018-04-01] MEDS: LEVOTHYROXINE 75 MCG TABLET PO SCH (06:14)
[2018-04-01 08:07] LABS: BASO % 1 % (0-3); EOS # 0.2 x10^3/uL (0.0-0.7); EOS % 4 % (0-3); HEMATOCRIT 36.9 % (36.0-47.0); HEMOGLOBIN 12.2 g/dL (12.0-15.5); LYMPH # 1.5 x10^3/uL (1.0-4.8); LYMPH % 27 % (24-48); MEAN CORPUSCULAR HEMOGLOBIN 31 pg (25-35); MEAN CORPUSCULAR HGB CONC 33 g/dL (31-37); MEAN CORPUSCULAR VOLUME 94 fL (79-100); MONO # 0.7 x10^3/uL (0.0-1.1); MONO % 13 % (0-9); NEUT # 3.1 x10^3uL (1.8-7.7); NEUT % 55 % (31-73); PLATELET COUNT 158 x10^3/uL (140-400); RED BLOOD COUNT 3.95 x10^6/uL (3.50-5.40); RED CELL DISTRIBUTION WIDTH 15.9 % (11.5-14.5); WHITE BLOOD COUNT 5.6 x10^3/uL (4.0-11.0)
[2018-04-01 08:25] LABS: ALBUMIN 2.6 g/dL (3.4-5.0); ALBUMIN/GLOBULIN RATIO 0.9 (1.0-1.7); CALCIUM 8.2 mg/dL (8.5-10.1); CREATININE 0.7 mg/dL (0.6-1.0); GFR 79.2; POTASSIUM 4.6 mmol/L (3.5-5.1); TOTAL BILIRUBIN 0.3 mg/dL (0.2-1.0); TOTAL PROTEIN 5.6 g/dL (6.4-8.2)
[2018-04-01 08:27] LABS: VAL ACID 47 mcg/mL (50-100)
[2018-04-01] MEDS: DIVALPROEX 125 MG CAP.SPRINK PO SCH ×2 (09:59→20:31)
[2018-04-01] MEDS: MULTIVITAMIN I-VITE TABLET. PO SCH (09:59)
[2018-04-01] MEDS: PANTOPRAZOLE 40 MG TABLET. PO SCH (09:59)
[2018-04-01] MEDS: MULTIVITAMIN with MINERAL TABLET. PO SCH (09:59)
[2018-04-01] MEDS: ENOXAPARIN 40 MG/0.4 ML SYRINGE. SQ SCH (09:59)
[2018-04-01] MEDS: ASPIRIN ENTERIC COATED 325 MG TABLET.DR. PO SCH (10:00)
[2018-04-01] MEDS: QUEtiapine 25 MG TABLET. PO SCH (10:00)
[2018-04-01] MEDS: LIDOCAINE (700MG/PATCH) PATCH. TD SCH (10:01)
[2018-04-01] MEDS: CARVEDILOL 6.25 MG TABLET PO SCH ×2 (10:01→17:20)
[2018-04-01] MEDS: LISINOPRIL 10 MG TABLET PO SCH (10:01)
[2018-04-01] MEDS: SERTRALINE 25 MG TABLET. PO SCH (10:02)
[2018-04-01] MEDS: BUDESONIDE 0.5 MG/2 ML NEBU NEB SCH ×2 (10:11→19:53)
[2018-04-01 16:48] VITALS: BP 114/73
[2018-04-01] MEDS: DONEPEZIL HCL 10 MG TABLET PO SCH (20:31)
[2018-04-01] MEDS: PATCH REMOVAL. MC SCH (20:31)
[2018-04-01] MEDS: ATORVASTATIN CALCIUM 20 MG TABLET PO SCH (20:31)
--- NOTE | 2018-04-01 22:48 | PDOC ---
Exam Note: Akshat Note: Please also refer to the separate dictated note~for this date of service dictated separately.~Patient seen individually. Discussed the patient with Nursing staff reviewed the chart.~Reviewed interim history and current functioning. Reviewed vital signs,~Labs/ Radiology~and current medications noted below. Continue current treatment with the changes noted in the dictated addendum note Assessment: Vital Signs: Vital Signs Date Time Temp Pulse Resp B/P (MAP) Pulse Ox O2 Delivery O2 Flow Rate FiO2 04/01/18 19:30 96 Nasal Cannula 2.0 04/01/18 17:20 73 114/73 04/01/18 16:48 98.4 18 I&O Intake and Output 04/01/18 07:01 Intake Total 1320 ml Balance 1320 ml Intake Oral 1320 ml Labs: Laboratory Tests Test 04/01/18 07:12 White Blood Count 5.6 x10^3/uL (4.0-11.0) Red Blood Count 3.95 x10^6/uL (3.50-5.40) Hemoglobin 12.2 g/dL (12.0-15.5) Hematocrit 36.9 % (36.0-47.0) Mean Corpuscular Volume 94 fL (79-100) Mean Corpuscular Hemoglobin 31 pg (25-35) Mean Corpuscular Hemoglobin Concent 33 g/dL (31-37) Red Cell Distribution Width 15.9 % (11.5-14.5) H Platelet Count 158 x10^3/uL (140-400) Neutrophils (%) (Auto) 55 % (31-73) Lymphocytes (%) (Auto) 27 % (24-48) Monocytes (%) (Auto) 13 % (0-9) H Eosinophils (%) (Auto) 4 % (0-3) H Basophils (%) (Auto) 1 % (0-3) Neutrophils # (Auto) 3.1 x10^3uL (1.8-7.7) Lymphocytes # (Auto) 1.5 x10^3/uL (1.0-4.8) Monocytes # (Auto) 0.7 x10^3/uL (0.0-1.1) Eosinophils # (Auto) 0.2 x10^3/uL (0.0-0.7) Basophils # (Auto) 0.0 x10^3/uL (0.0-0.2) Sodium Level 143 mmol/L (136-145) Potassium Level 4.6 mmol/L (3.5-5.1) Chloride Level 106 mmol/L (98-107) Carbon Dioxide Level 27 mmol/L (21-32) Anion Gap 10 (6-14) Blood Urea Nitrogen 30 mg/dL (7-20) H Creatinine 0.7 mg/dL (0.6-1.0) Estimated GFR (Cockcroft-Gault) 79.2 BUN/Creatinine Ratio 43 (6-20) H Glucose Level 82 mg/dL (70-99) Calcium Level 8.2 mg/dL (8.5-10.1) L Total Bilirubin 0.3 mg/dL (0.2-1.0) Aspartate Amino Transferase (AST) 30 U/L (15-37) Alanine Aminotransferase (ALT) 28 U/L (14-59) Alkaline Phosphatase 43 U/L (46-116) L Total Protein 5.6 g/dL (6.4-8.2) L Albumin 2.6 g/dL (3.4-5.0) L Albumin/Globulin Ratio 0.9 (1.0-1.7) L Valproic Acid Level 47 mcg/mL (50-100) L Valproic Acid Last Dose Date 03/29/2018 Valproic Acid Last Dose Time 2100 Current Medications: Meds: Current Medications Multi-Ingredient Ointment (Analgesic [place]) 1 attila PRN QID PRN TP MUSCLE PAIN; Start 03/27/18 at 18:45 Al Hydroxide/Mg Hydroxide (Mylanta Plus Xs) 15 ml PRN AFTMEALHC PRN PO DYSPEPSIA; Start 03/27/18 at 18:45 Magnesium Hydroxide (Milk Of Magnesia) 2,400 mg PRN QHS PRN PO CONSTIPATION; Start 03/27/18 at 18:45 Aspirin (Aspirin Enteric Coated) 325 mg DAILY PO Last administered on at 10:00; Start 03/28/18 at 09:00 Atorvastatin Calcium (Lipitor) 20 mg QHS PO Last administered on 04/01/18at 20: 31; Start 03/27/18 at 21:00 Estrogens Conjugated (Premarin) 0.5 attila PRN DAILY PRN VG vaginal dryness; Start 03/27/18 at 19:15 Acetaminophen/ Hydrocodone Bitart (Lortab 5/325) 1 tab PRN Q12HR PRN PO PAIN Last administered on 03/30/18at 09:06; Start 03/27/18 at 19:15; Stop 03/30/18 at 15:02; Status DC Ipratropium [place] (Atrovent) 0.2 mg PRN Q6HRS PRN IH SHORTNESS OF BREATH; Start 03/27/18 at 19:15 Levothyroxine Sodium (Synthroid) 75 mcg DAILYAC PO Last administered on at 08:40; Start 03/28/18 at 07:30; Stop 03/28/18 at 12:26; Status DC Lisinopril (Prinivil) 10 mg DAILY PO Last administered on 04/01/18at 10:01; Start 03/28/18 at 09:00 Acetaminophen (Tylenol) 650 mg PRN Q6HRS PRN PO PAIN / TEMP; Start 03/27/18 at 19:45 Non-Formulary Medication (Albuterol Sulfate (Albuterol Sulfate Conc Neb Soln)) 2.5 mg PRN Q6HRS PRN NEB SHORTNESS OF BREATH; Start 03/27/18 at 19:15; Status UNV Amlodipine Besylate (Norvasc) 10 mg DAILY PO Last administered on 03/31/18at 08 :38; Start 03/28/18 at 09:00; Stop 03/31/18 at 12:27; Status DC Non-Formulary Medication (Budesonide/ Formoterol Fumarate (Symbicort 160-4.5 Mcg Inhaler)) 2 puff BID IH ; Start 03/27/18 at 21:00; Status UNV Carvedilol (Coreg) 6.25 mg BIDWMEALS PO Last administered on 04/01/18at 17:20; Start 03/27/18 at 20:00 Divalproex Sodium (Depakote Er) 750 mg QHS PO Last administered on 03/27/18at 20:53; Start 03/27/18 at 21:00; Stop 03/28/18 at 21:13; Status DC Docusate Sodium (Colace) 100 mg PRN DAILY PRN PO HARD STOOLS; Start 03/27/18 at 19:45 Donepezil HCl (Aricept) 10 mg QHS PO Last administered on 04/01/18 20:31; Start 03/27/18 at 21:00 Enoxaparin Sodium (Lovenox 40mg Syringe) 40 mg DAILY SQ Last administered on 09:59; Start 03/28/18 at 09:00 Hydralazine HCl (Apresoline) 10 mg TID PO Last administered on 03/31/18at 08:39 ; Start 03/27/18 at 21:00; Stop 03/31/18 at 12:27; Status DC Multivitamins/ Calcium (Thera-M Plus) 1 tab DAILY PO Last administered on 04/01 09:59; Start 03/28/18 at 09:00 Olanzapine (ZyPREXA) 5 mg PRN DAILY PRN PO ANXIETY/AGITATION Last administered on 03/29/18at 10:50; Start 03/28/18 at 09:00 Pantoprazole Sodium (Protonix) 40 mg DAILYAC PO Last administered on 09:59; Start 03/28/18 at 07:30 Phenazopyridine HCl (Pyridium) 100 mg PRN TID PRN PO URINARY PAIN; Start 03/27 at 19:45 Polyethylene Glycol (miraLAX) 17 gm PRN BID PRN PO CONSTIPATION; Start at 09:00 Sodium Chloride (Saline Mist Nasal) 1 attila QID NS ; Start 03/27/18 at 21:00; Status Cancel Trazodone HCl (Desyrel) 25 mg PRN BID PRN PO ANXIETY/AGITATION; Start at 19:45 Trazodone HCl (Desyrel) 50 mg PRN QHS PRN PO INSOMNIA; Start 03/27/18 at 19:45 Lidocaine (Lidoderm) 1 patch DAILY TD Last administered on 04/01/18at 10:01; Start 03/28/18 at 09:00 Multivitamins/ Minerals (I-[place]) 1 tab DAILY PO Last administered on 09:59; Start 03/28/18 at 09:00 Miscellaneous (Lidoderm Patch Removal) 1 ea QHS MC Last administered on 20:31; Start 03/27/18 at 21:00 Albuterol Sulfate (Ventolin) 2.5 mg PRN Q6HRS PRN NEB SHORTNESS OF BREATH; Start 03/27/18 at 19:45 Albuterol Sulfate (Ventolin) 2.5 mg RTQID NEB Last administered on 04/01/18at 19:53; Start 03/27/18 at 20:00 Budesonide (Pulmicort) 0.5 mg RTBID NEB Last administered on 04/01/18at 19:53; Start 03/27/18 at 20:00 Sodium Chloride ([place] Saline Nasal) 2 attila QID NS ; Start 03/27/18 at 21:00; Stop 03/28/18 at 13:08; Status DC Levothyroxine Sodium (Synthroid) 75 mcg DAILY06 PO Last administered on at 06:14; Start 03/29/18 at 06:00 Sodium Chloride (Saline Mist Nasal) 1 attila PRN QID PRN NS NASAL CONGESTION; Start 03/28/18 at 13:15 Divalproex Sodium (Depakote Sprinkles) 750 mg HS PO Last administered on at 20:20; Start 03/28/18 at 21:30; Stop 03/30/18 at 14:27; Status DC Sertraline HCl (Zoloft) 25 mg DAILY PO Last administered on 03/31/18at 08:39; Start 03/29/18 at 09:00; Stop 03/31/18 at 09:01; Status DC Sertraline HCl (Zoloft) 50 mg DAILY PO Last administered on 04/01/18at 10:02; Start 04/01/18 at 09:00 Divalproex Sodium (Depakote Sprinkles) 500 mg BID94 PO Last administered on at 07:55; Start 03/30/18 at 09:00; Stop 03/30/18 at 14:27; Status DC Quetiapine Fumarate (SEROquel) 12.5 mg 1300 PO Last administered on 04/01/18at 10:00; Start 03/30/18 at 13:00 Divalproex Sodium (Depakote Sprinkles) 500 mg BID PO Last administered on 04/01at 09:59; Start 03/30/18 at 21:00; Stop 04/01/18 at 17:43; Status DC Acetaminophen/ Hydrocodone Bitart (Lortab 5/325) 1 tab PRN Q6HRS PRN PO PAIN Last administered on 03/31/18at 18:36; Start 03/30/18 at 15:15 Olanzapine (ZyPREXA ZYDIS) 2.5 mg PRN Q2HR PRN PO PSYCHOSIS; Start 03/30/18 at 19:15 Divalproex Sodium (Depakote Sprinkles) 625 mg BID PO Last administered on 04/01at 20:31; Start 04/01/18 at 21:00 Active Scripts Active Reported [occuvite] 1 Tab PO DAILY Pyridium (Phenazopyridine Hcl) 100 Mg Tablet 100 Mg PO PRN TID PRN Trazodone Hcl 50 Mg Tablet 25 Mg PO PRN QHS PRN Premarin (Estrogens, Conjugated) 30 Gm Cream.appl 0.5 Gm VG PRN DAILY PRN Multivitamins (Multivitamin) 1 Each Tablet 1 Tab PO DAILY Trazodone Hcl 50 Mg Tablet 25 Mg PO BID PRN [place] Saline (Sodium Chloride) 50 Ml Drops 2 Drop NS QID Miralax (Polyethylene Glycol 3350) 17 Gm Powd.pack 17 Gm PO PRN BID PRN Protonix (Pantoprazole Sodium) 40 Mg Tablet.dr 40 Mg PO DAILY Zyprexa (Olanzapine) 5 Mg Tablet 5 Mg PO PRN DAILY PRN Lisinopril 10 Mg Tablet 10 Mg PO DAILY [lidoderm] 1 Patch TD DAILY Levothyroxine Sodium 75 Mcg Tablet 75 Mcg PO DAILYAC Ipratropium [place] 0.2 Mg/1 Ml Solution 0.2 Mg IH PRN Q6HRS PRN Hydrocodone-Apap 5-325 (Hydrocodone Bit/Acetaminophen) 1 Each Tablet 1 Tab PO PRN Q12HR PRN Hydralazine Hcl 10 Mg Tablet 10 Mg PO TID Lovenox (Enoxaparin Sodium) 40 Mg/0.4 Ml Disp.syrin 40 Mg SQ DAILY Donepezil Hcl 10 Mg Tablet 10 Mg PO HS Colace (Docusate Sodium) 100 Mg Capsule 100 Mg PO PRN DAILY PRN Depakote Er (Divalproex Sodium) 500 Mg Tab.er.24h 750 Mg PO HS Coreg (Carvedilol) 6.25 Mg Tablet 6.25 Mg PO BIDWMEALS Symbicort 160-4.5 Mcg Inhaler (Budesonide/Formoterol Fumarate) 10.2 Gm Hfa.aer.ad 2 Puff IH BID Lipitor (Atorvastatin Calcium) 20 Mg Tablet 20 Mg PO QHS Aspirin Ec (Aspirin) 325 Mg Tablet. 325 Mg PO DAILY Amlodipine Besylate 10 Mg Tablet 10 Mg PO DAILY Albuterol Sulfate Conc Neb Soln (Albuterol Sulfate) 2.5 Mg/0.5 Ml Vial.neb 2.5 Mg NEB PRN Q6HRS PRN Acetaminophen 650 Mg/20.3 Ml Solution 650 Mg PO PRN Q6HRS PRN I have reviewed the current psychotropics carefully including drug interactions. Risk benefit ratio favors no change other than as noted in my dictated progress note. Diagnosis: Problems: (1) Anxiety disorder (2) Major depressive disorder, recurrent episode (3) Psychosis, atypical (4) Impulse control disorder GWEN ROY MD Apr 01, 2018 22:48
--- NOTE | 2018-04-01 22:52 | PN ---
DATE: 03/31/2018 PSYCHIATRIC PROGRESS NOTE This late entry 03/31/2018 covers elements not covered in my initial note. SUBJECTIVE: I met with the patient in the evening. The patient slept 3-1/2 hours previous night. She has been better in the evening, somewhat irritable in the morning. She is still delusional, then talked at great length with me individually that she believes her son is trying to steal her money in her home. She states they live in the apartment with several pets, defecating on the floor and the patient is unable to live in those circumstances. She states her son's significant other is disabled in the wheelchair, and he is wanting to get her money, so that he can take care of his significant other. REVIEW OF SYSTEMS: Ambulation impaired, in wheelchair. No CV, , pulmonary, eye system symptoms on review. MENTAL STATUS EXAM: Reasonably oriented. Speech coherent, abstraction fair, computation impaired, language function intact, attention span short. Mood and affect remain somewhat anxious, labile. LABORATORY DATA: Reviewed. IMPRESSION: Major depressive disorder with psychotic features; major neurocognitive disorder, Alzheimer, vascular with delusion, depression. Rest unchanged. PLAN: No change from initial note, but once we get the valproic acid level back, we will adjust to reach therapeutic level and may need to add something to help with insomnia. MAN Rk ROY MD DR: HERMELINDA/alexandra JOB#: [id number] / [id number]
[2018-04-02] MEDS: ALBUTEROL SULFATE 2.5 MG/3 ML NEBU. NEB SCH ×4 (04:51→20:20)
[2018-04-02 05:47] VITALS: BP 154/88
[2018-04-02] MEDS: LEVOTHYROXINE 75 MCG TABLET PO SCH (06:14)
[2018-04-02] MEDS: PANTOPRAZOLE 40 MG TABLET. PO SCH (07:56)
[2018-04-02] MEDS: MULTIVITAMIN I-VITE TABLET. PO SCH (07:56)
[2018-04-02] MEDS: DIVALPROEX 125 MG CAP.SPRINK PO SCH ×2 (07:56→19:27)
[2018-04-02] MEDS: MULTIVITAMIN with MINERAL TABLET. PO SCH (07:56)
[2018-04-02] MEDS: SERTRALINE 25 MG TABLET. PO SCH (07:56)
[2018-04-02] MEDS: CARVEDILOL 6.25 MG TABLET PO SCH ×2 (07:57→17:16)
[2018-04-02] MEDS: ASPIRIN ENTERIC COATED 325 MG TABLET.DR. PO SCH (07:58)
[2018-04-02] MEDS: LISINOPRIL 10 MG TABLET PO SCH (07:58)
[2018-04-02] MEDS: LIDOCAINE (700MG/PATCH) PATCH. TD SCH (07:59)
[2018-04-02] MEDS: ENOXAPARIN 40 MG/0.4 ML SYRINGE. SQ SCH (07:59)
[2018-04-02] MEDS: BUDESONIDE 0.5 MG/2 ML NEBU NEB SCH ×2 (10:57→20:20)
[2018-04-02] MEDS: HYDROcodone/APAP 5/325MG 1 TAB TABLET PO PRN (12:17)
[2018-04-02] MEDS: QUEtiapine 25 MG TABLET. PO SCH (14:42)
[2018-04-02 16:11] VITALS: BP 111/61
[2018-04-02] MEDS: ATORVASTATIN CALCIUM 20 MG TABLET PO SCH (19:27)
[2018-04-02] MEDS: PATCH REMOVAL. MC SCH (19:27)
[2018-04-02] MEDS: DONEPEZIL HCL 10 MG TABLET PO SCH (19:27)
--- NOTE | 2018-04-02 22:44 | PDOC ---
Exam Note: Akshat Note: Please also refer to the separate dictated note~for this date of service dictated separately.~Patient seen individually. Discussed the patient with Nursing staff reviewed the chart.~Reviewed interim history and current functioning. Reviewed vital signs,~Labs/ Radiology~and current medications noted below. Continue current treatment with the changes noted in the dictated addendum note Assessment: Vital Signs: Vital Signs Date Time Temp Pulse Resp B/P (MAP) Pulse Ox O2 Delivery O2 Flow Rate FiO2 04/02/18 20:00 97 Nasal Cannula 2.0 04/02/18 17:16 60 111/61 04/02/18 16:11 97.7 20 I&O Intake and Output 04/02/18 07:01 Intake Total 560 ml Balance 560 ml Intake Oral 560 ml Current Medications: Meds: Current Medications Multi-Ingredient Ointment (Analgesic [place]) 1 attila PRN QID PRN TP MUSCLE PAIN; Start 03/27/18 at 18:45 Al Hydroxide/Mg Hydroxide (Mylanta Plus Xs) 15 ml PRN AFTMEALHC PRN PO DYSPEPSIA; Start 03/27/18 at 18:45 Magnesium Hydroxide (Milk Of Magnesia) 2,400 mg PRN QHS PRN PO CONSTIPATION; Start 03/27/18 at 18:45 Aspirin (Aspirin Enteric Coated) 325 mg DAILY PO Last administered on at 07:58; Start 03/28/18 at 09:00 Atorvastatin Calcium (Lipitor) 20 mg QHS PO Last administered on 04/02/18at 19: 27; Start 03/27/18 at 21:00 Estrogens Conjugated (Premarin) 0.5 attila PRN DAILY PRN VG vaginal dryness; Start 03/27/18 at 19:15 Acetaminophen/ Hydrocodone Bitart (Lortab 5/325) 1 tab PRN Q12HR PRN PO PAIN Last administered on 03/30/18at 09:06; Start 03/27/18 at 19:15; Stop 03/30/18 at 15:02; Status DC Ipratropium [place] (Atrovent) 0.2 mg PRN Q6HRS PRN IH SHORTNESS OF BREATH; Start 03/27/18 at 19:15 Levothyroxine Sodium (Synthroid) 75 mcg DAILYAC PO Last administered on at 08:40; Start 03/28/18 at 07:30; Stop 03/28/18 at 12:26; Status DC Lisinopril (Prinivil) 10 mg DAILY PO Last administered on 04/02/18at 07:58; Start 03/28/18 at 09:00 Acetaminophen (Tylenol) 650 mg PRN Q6HRS PRN PO PAIN / TEMP; Start 03/27/18 at 19:45 Non-Formulary Medication (Albuterol Sulfate (Albuterol Sulfate Conc Neb Soln)) 2.5 mg PRN Q6HRS PRN NEB SHORTNESS OF BREATH; Start 03/27/18 at 19:15; Status UNV Amlodipine Besylate (Norvasc) 10 mg DAILY PO Last administered on 03/31/18at 08 :38; Start 03/28/18 at 09:00; Stop 03/31/18 at 12:27; Status DC Non-Formulary Medication (Budesonide/ Formoterol Fumarate (Symbicort 160-4.5 Mcg Inhaler)) 2 puff BID IH ; Start 03/27/18 at 21:00; Status UNV Carvedilol (Coreg) 6.25 mg BIDWMEALS PO Last administered on 04/02/18at 17:16; Start 03/27/18 at 20:00 Divalproex Sodium (Depakote Er) 750 mg QHS PO Last administered on 03/27/18at 20:53; Start 03/27/18 at 21:00; Stop 03/28/18 at 21:13; Status DC Docusate Sodium (Colace) 100 mg PRN DAILY PRN PO HARD STOOLS; Start 03/27/18 at 19:45 Donepezil HCl (Aricept) 10 mg QHS PO Last administered on 04/02/18at 19:27; Start 03/27/18 at 21:00 Enoxaparin Sodium (Lovenox 40mg Syringe) 40 mg DAILY SQ Last administered on at 07:59; Start 03/28/18 at 09:00 Hydralazine HCl (Apresoline) 10 mg TID PO Last administered on 03/31/18at 08:39 ; Start 03/27/18 at 21:00; Stop 03/31/18 at 12:27; Status DC Multivitamins/ Calcium (Thera-M Plus) 1 tab DAILY PO Last administered on 04/02 07:56; Start 03/28/18 at 09:00 Olanzapine (ZyPREXA) 5 mg PRN DAILY PRN PO ANXIETY/AGITATION Last administered on 03/29/18at 10:50; Start 03/28/18 at 09:00 Pantoprazole Sodium (Protonix) 40 mg DAILYAC PO Last administered on at 07:56; Start 03/28/18 at 07:30 Phenazopyridine HCl (Pyridium) 100 mg PRN TID PRN PO URINARY PAIN; Start 03/27 at 19:45 Polyethylene Glycol (miraLAX) 17 gm PRN BID PRN PO CONSTIPATION; Start at 09:00 Sodium Chloride (Saline Mist Nasal) 1 attila QID NS ; Start 03/27/18 at 21:00; Status Cancel Trazodone HCl (Desyrel) 25 mg PRN BID PRN PO ANXIETY/AGITATION; Start at 19:45 Trazodone HCl (Desyrel) 50 mg PRN QHS PRN PO INSOMNIA; Start 03/27/18 at 19:45 Lidocaine (Lidoderm) 1 patch DAILY TD Last administered on 04/02/18at 07:59; Start 03/28/18 at 09:00 Multivitamins/ Minerals (I-Angelo) 1 tab DAILY PO Last administered on 07:56; Start 03/28/18 at 09:00 Miscellaneous (Lidoderm Patch Removal) 1 ea QHS MC Last administered on at 19:27; Start 03/27/18 at 21:00 Albuterol Sulfate (Ventolin) 2.5 mg PRN Q6HRS PRN NEB SHORTNESS OF BREATH; Start 03/27/18 at 19:45 Albuterol Sulfate (Ventolin) 2.5 mg RTQID NEB Last administered on 04/02/18at 20:20; Start 03/27/18 at 20:00 Budesonide (Pulmicort) 0.5 mg RTBID NEB Last administered on 04/02/18at 20:20; Start 03/27/18 at 20:00 Sodium Chloride ([place] Saline Nasal) 2 attila QID NS ; Start 03/27/18 at 21:00; Stop 03/28/18 at 13:08; Status DC Levothyroxine Sodium (Synthroid) 75 mcg DAILY06 PO Last administered on at 06:14; Start 03/29/18 at 06:00 Sodium Chloride (Saline Mist Nasal) 1 attila PRN QID PRN NS NASAL CONGESTION; Start 03/28/18 at 13:15 Divalproex Sodium (Depakote Sprinkles) 750 mg HS PO Last administered on at 20:20; Start 03/28/18 at 21:30; Stop 03/30/18 at 14:27; Status DC Sertraline HCl (Zoloft) 25 mg DAILY PO Last administered on 03/31/18at 08:39; Start 03/29/18 at 09:00; Stop 03/31/18 at 09:01; Status DC Sertraline HCl (Zoloft) 50 mg DAILY PO Last administered on 04/02/18at 07:56; Start 04/01/18 at 09:00 Divalproex Sodium (Depakote Sprinkles) 500 mg BID94 PO Last administered on at 07:55; Start 03/30/18 at 09:00; Stop 03/30/18 at 14:27; Status DC Quetiapine Fumarate (SEROquel) 12.5 mg 1300 PO Last administered on 04/02/18at 14:42; Start 03/30/18 at 13:00 Divalproex Sodium (Depakote Sprinkles) 500 mg BID PO Last administered on 04/01at 09:59; Start 03/30/18 at 21:00; Stop 04/01/18 at 17:43; Status DC Acetaminophen/ Hydrocodone Bitart (Lortab 5/325) 1 tab PRN Q6HRS PRN PO PAIN Last administered on 04/02/18at 12:17; Start 03/30/18 at 15:15 Olanzapine (ZyPREXA ZYDIS) 2.5 mg PRN Q2HR PRN PO PSYCHOSIS; Start 03/30/18 at 19:15 Divalproex Sodium (Depakote Sprinkles) 625 mg BID PO Last administered on 04/02at 19:27; Start 04/01/18 at 21:00 Active Scripts Active Reported [occuvite] 1 Tab PO DAILY Pyridium (Phenazopyridine Hcl) 100 Mg Tablet 100 Mg PO PRN TID PRN Trazodone Hcl 50 Mg Tablet 25 Mg PO PRN QHS PRN Premarin (Estrogens, Conjugated) 30 Gm Cream.appl 0.5 Gm VG PRN DAILY PRN Multivitamins (Multivitamin) 1 Each Tablet 1 Tab PO DAILY Trazodone Hcl 50 Mg Tablet 25 Mg PO BID PRN [place] Saline (Sodium Chloride) 50 Ml Drops 2 Drop NS QID Miralax (Polyethylene Glycol 3350) 17 Gm Powd.pack 17 Gm PO PRN BID PRN Protonix (Pantoprazole Sodium) 40 Mg Tablet.dr 40 Mg PO DAILY Zyprexa (Olanzapine) 5 Mg Tablet 5 Mg PO PRN DAILY PRN Lisinopril 10 Mg Tablet 10 Mg PO DAILY [lidoderm] 1 Patch TD DAILY Levothyroxine Sodium 75 Mcg Tablet 75 Mcg PO DAILYAC Ipratropium [place] 0.2 Mg/1 Ml Solution 0.2 Mg IH PRN Q6HRS PRN Hydrocodone-Apap 5-325 (Hydrocodone Bit/Acetaminophen) 1 Each Tablet 1 Tab PO PRN Q12HR PRN Hydralazine Hcl 10 Mg Tablet 10 Mg PO TID Lovenox (Enoxaparin Sodium) 40 Mg/0.4 Ml Disp.syrin 40 Mg SQ DAILY Donepezil Hcl 10 Mg Tablet 10 Mg PO HS Colace (Docusate Sodium) 100 Mg Capsule 100 Mg PO PRN DAILY PRN Depakote Er (Divalproex Sodium) 500 Mg Tab.er.24h 750 Mg PO HS Coreg (Carvedilol) 6.25 Mg Tablet 6.25 Mg PO BIDWMEALS Symbicort 160-4.5 Mcg Inhaler (Budesonide/Formoterol Fumarate) 10.2 Gm Hfa.aer.ad 2 Puff IH BID Lipitor (Atorvastatin Calcium) 20 Mg Tablet 20 Mg PO QHS Aspirin Ec (Aspirin) 325 Mg Tablet. 325 Mg PO DAILY Amlodipine Besylate 10 Mg Tablet 10 Mg PO DAILY Albuterol Sulfate Conc Neb Soln (Albuterol Sulfate) 2.5 Mg/0.5 Ml Vial.neb 2.5 Mg NEB PRN Q6HRS PRN Acetaminophen 650 Mg/20.3 Ml Solution 650 Mg PO PRN Q6HRS PRN I have reviewed the current psychotropics carefully including drug interactions. Risk benefit ratio favors no change other than as noted in my dictated progress note. Diagnosis: Problems: (1) Anxiety disorder (2) Major depressive disorder, recurrent episode (3) Psychosis, atypical (4) Impulse control disorder GWEN ROY MD Apr 02, 2018 22:44
[2018-04-03] MEDS: LEVOTHYROXINE 75 MCG TABLET PO SCH (04:55)
[2018-04-03 06:03] VITALS: BP 144/78
[2018-04-03] MEDS: CARVEDILOL 6.25 MG TABLET PO SCH ×2 (07:31→17:35)
[2018-04-03] MEDS: PANTOPRAZOLE 40 MG TABLET. PO SCH (07:31)
[2018-04-03] MEDS: DIVALPROEX 125 MG CAP.SPRINK PO SCH ×2 (07:31→19:44)
[2018-04-03] MEDS: LIDOCAINE (700MG/PATCH) PATCH. TD SCH (07:31)
[2018-04-03] MEDS: ENOXAPARIN 40 MG/0.4 ML SYRINGE. SQ SCH (07:31)
[2018-04-03] MEDS: MULTIVITAMIN I-VITE TABLET. PO SCH (07:31)
[2018-04-03] MEDS: SERTRALINE 25 MG TABLET. PO SCH (07:32)
[2018-04-03] MEDS: LISINOPRIL 10 MG TABLET PO SCH (07:32)
[2018-04-03] MEDS: ASPIRIN ENTERIC COATED 325 MG TABLET.DR. PO SCH (07:32)
[2018-04-03] MEDS: MULTIVITAMIN with MINERAL TABLET. PO SCH (07:32)
--- NOTE | 2018-04-03 08:00 | PDOC ---
Exam Note: Akshat Note: S/O: This is a late entry of 04/01/2018. This note covers elements not covered in my initial note. I met with the patient in the evening of 2017. She slept six and half hours previous night. She slept in the dayroom for about two hours, early to bed in the evening. BUN 30 with a BUN/creatinine ratio of 43. Valproic acid level 47. ROS: Positive for some shortness of breath. Impaired ambulation in wheelchair. No CV, GI/, ENT, integumentary system symptoms on review. MSE: Oriented to herself and situation. Speech coherent, somewhat rapid at times. Abstraction is fair. Computation impaired. Language function intact. Short-term memory is impaired. She talked at great length to me about how she feels her son is trying to get a car/van and her money and that is all he is interested in. We addressed this at some length. No active suicidal or homicidal ideation but she is quite paranoid but feels helpless that she has no other relative that she can turn to. Labs: Reviewed. Imp: Major depressive disorder recurrent with psychotic features. Major neurocognitive disorder early Alzheimer, vascular with delusion, depression. Rest unchanged. Plan: Increase Depakote from 500 mg b.i.d. to 625 mg b.i.d. Check CBC, CMP, valproic acid level in three days. Continue rest psychotropics unchanged from my initial note. Assessment: Vital Signs: Vital Signs Date Time Temp Pulse Resp B/P (MAP) Pulse Ox O2 Delivery O2 Flow Rate FiO2 04/03/18 07:32 68 144/78 04/03/18 06:03 98.7 20 98 04/02/18 20:00 Nasal Cannula 2.0 I&O Intake and Output 04/03/18 07:01 Intake Total 845 ml Balance 845 ml Intake Oral 845 ml # Bowel Movements 1 Current Medications: Meds: Current Medications Multi-Ingredient Ointment (Analgesic [place]) 1 attila PRN QID PRN TP MUSCLE PAIN; Start 03/27/18 at 18:45 Al Hydroxide/Mg Hydroxide (Mylanta Plus Xs) 15 ml PRN AFTMEALHC PRN PO DYSPEPSIA; Start 03/27/18 at 18:45 Magnesium Hydroxide (Milk Of Magnesia) 2,400 mg PRN QHS PRN PO CONSTIPATION; Start 03/27/18 at 18:45 Aspirin (Aspirin Enteric Coated) 325 mg DAILY PO Last administered on at 07:32; Start 03/28/18 at 09:00 Atorvastatin Calcium (Lipitor) 20 mg QHS PO Last administered on 04/02/18 19: 27; Start 03/27/18 at 21:00 Estrogens Conjugated (Premarin) 0.5 attila PRN DAILY PRN VG vaginal dryness; Start 03/27/18 at 19:15 Acetaminophen/ Hydrocodone Bitart (Lortab 5/325) 1 tab PRN Q12HR PRN PO PAIN Last administered on 03/30/18 09:06; Start 03/27/18 at 19:15; Stop 03/30/18 at 15:02; Status DC Ipratropium [place] (Atrovent) 0.2 mg PRN Q6HRS PRN IH SHORTNESS OF BREATH; Start 03/27/18 at 19:15 Levothyroxine Sodium (Synthroid) 75 mcg DAILYAC PO Last administered on at 08:40; Start 03/28/18 at 07:30; Stop 03/28/18 at 12:26; Status DC Lisinopril (Prinivil) 10 mg DAILY PO Last administered on 04/03/18at 07:32; Start 03/28/18 at 09:00 Acetaminophen (Tylenol) 650 mg PRN Q6HRS PRN PO PAIN / TEMP; Start 03/27/18 at 19:45 Non-Formulary Medication (Albuterol Sulfate (Albuterol Sulfate Conc Neb Soln)) 2.5 mg PRN Q6HRS PRN NEB SHORTNESS OF BREATH; Start 03/27/18 at 19:15; Status UNV Amlodipine Besylate (Norvasc) 10 mg DAILY PO Last administered on 03/31/18at 08 :38; Start 03/28/18 at 09:00; Stop 03/31/18 at 12:27; Status DC Non-Formulary Medication (Budesonide/ Formoterol Fumarate (Symbicort 160-4.5 Mcg Inhaler)) 2 puff BID IH ; Start 03/27/18 at 21:00; Status UNV Carvedilol (Coreg) 6.25 mg BIDWMEALS PO Last administered on 04/03/18at 07:31; Start 03/27/18 at 20:00 Divalproex Sodium (Depakote Er) 750 mg QHS PO Last administered on 03/27/18at 20:53; Start 03/27/18 at 21:00; Stop 03/28/18 at 21:13; Status DC Docusate Sodium (Colace) 100 mg PRN DAILY PRN PO HARD STOOLS; Start 03/27/18 at 19:45 Donepezil HCl (Aricept) 10 mg QHS PO Last administered on 04/02/18at 19:27; Start 03/27/18 at 21:00 Enoxaparin Sodium (Lovenox 40mg Syringe) 40 mg DAILY SQ Last administered on at 07:31; Start 03/28/18 at 09:00 Hydralazine HCl (Apresoline) 10 mg TID PO Last administered on 03/31/18at 08:39 ; Start 03/27/18 at 21:00; Stop 03/31/18 at 12:27; Status DC Multivitamins/ Calcium (Thera-M Plus) 1 tab DAILY PO Last administered on 04/03at 07:32; Start 03/28/18 at 09:00 Olanzapine (ZyPREXA) 5 mg PRN DAILY PRN PO ANXIETY/AGITATION Last administered on 03/29/18at 10:50; Start 03/28/18 at 09:00 Pantoprazole Sodium (Protonix) 40 mg DAILYAC PO Last administered on at 07:31; Start 03/28/18 at 07:30 Phenazopyridine HCl (Pyridium) 100 mg PRN TID PRN PO URINARY PAIN; Start 03/27 at 19:45 Polyethylene Glycol (miraLAX) 17 gm PRN BID PRN PO CONSTIPATION; Start at 09:00 Sodium Chloride (Saline Mist Nasal) 1 attila QID NS ; Start 03/27/18 at 21:00; Status Cancel Trazodone HCl (Desyrel) 25 mg PRN BID PRN PO ANXIETY/AGITATION; Start at 19:45 Trazodone HCl (Desyrel) 50 mg PRN QHS PRN PO INSOMNIA; Start 03/27/18 at 19:45 Lidocaine (Lidoderm) 1 patch DAILY TD Last administered on 04/03/18 07:31; Start 03/28/18 at 09:00 Multivitamins/ Minerals (I-Angelo) 1 tab DAILY PO Last administered on at 07:31; Start 03/28/18 at 09:00 Miscellaneous (Lidoderm Patch Removal) 1 ea QHS MC Last administered on at 19:27; Start 03/27/18 at 21:00 Albuterol Sulfate (Ventolin) 2.5 mg PRN Q6HRS PRN NEB SHORTNESS OF BREATH; Start 03/27/18 at 19:45 Albuterol Sulfate (Ventolin) 2.5 mg RTQID NEB Last administered on 04/02/18at 20:20; Start 03/27/18 at 20:00 Budesonide (Pulmicort) 0.5 mg RTBID NEB Last administered on 04/02/18at 20:20; Start 03/27/18 at 20:00 Sodium Chloride ([place] Saline Nasal) 2 attila QID NS ; Start 03/27/18 at 21:00; Stop 03/28/18 at 13:08; Status DC Levothyroxine Sodium (Synthroid) 75 mcg DAILY06 PO Last administered on at 04:55; Start 03/29/18 at 06:00 Sodium Chloride (Saline Mist Nasal) 1 attila PRN QID PRN NS NASAL CONGESTION; Start 03/28/18 at 13:15 Divalproex Sodium (Depakote Sprinkles) 750 mg HS PO Last administered on at 20:20; Start 03/28/18 at 21:30; Stop 03/30/18 at 14:27; Status DC Sertraline HCl (Zoloft) 25 mg DAILY PO Last administered on 03/31/18at 08:39; Start 03/29/18 at 09:00; Stop 03/31/18 at 09:01; Status DC Sertraline HCl (Zoloft) 50 mg DAILY PO Last administered on 04/03/18at 07:32; Start 04/01/18 at 09:00 Divalproex Sodium (Depakote Sprinkles) 500 mg BID94 PO Last administered on at 07:55; Start 03/30/18 at 09:00; Stop 03/30/18 at 14:27; Status DC Quetiapine Fumarate (SEROquel) 12.5 mg 1300 PO Last administered on 04/02/18at 14:42; Start 03/30/18 at 13:00 Divalproex Sodium (Depakote Sprinkles) 500 mg BID PO Last administered on 04/01at 09:59; Start 03/30/18 at 21:00; Stop 04/01/18 at 17:43; Status DC Acetaminophen/ Hydrocodone Bitart (Lortab 5/325) 1 tab PRN Q6HRS PRN PO PAIN Last administered on 04/02/18at 12:17; Start 03/30/18 at 15:15 Olanzapine (ZyPREXA ZYDIS) 2.5 mg PRN Q2HR PRN PO PSYCHOSIS; Start 03/30/18 at 19:15 Divalproex Sodium (Depakote Sprinkles) 625 mg BID PO Last administered on 04/03at 07:31; Start 04/01/18 at 21:00 Active Scripts Active Reported [occuvite] 1 Tab PO DAILY Pyridium (Phenazopyridine Hcl) 100 Mg Tablet 100 Mg PO PRN TID PRN Trazodone Hcl 50 Mg Tablet 25 Mg PO PRN QHS PRN Premarin (Estrogens, Conjugated) 30 Gm Cream.appl 0.5 Gm VG PRN DAILY PRN Multivitamins (Multivitamin) 1 Each Tablet 1 Tab PO DAILY Trazodone Hcl 50 Mg Tablet 25 Mg PO BID PRN [place] Saline (Sodium Chloride) 50 Ml Drops 2 Drop NS QID Miralax (Polyethylene Glycol 3350) 17 Gm Powd.pack 17 Gm PO PRN BID PRN Protonix (Pantoprazole Sodium) 40 Mg Tablet.dr 40 Mg PO DAILY Zyprexa (Olanzapine) 5 Mg Tablet 5 Mg PO PRN DAILY PRN Lisinopril 10 Mg Tablet 10 Mg PO DAILY [lidoderm] 1 Patch TD DAILY Levothyroxine Sodium 75 Mcg Tablet 75 Mcg PO DAILYAC Ipratropium [place] 0.2 Mg/1 Ml Solution 0.2 Mg IH PRN Q6HRS PRN Hydrocodone-Apap 5-325 (Hydrocodone Bit/Acetaminophen) 1 Each Tablet 1 Tab PO PRN Q12HR PRN Hydralazine Hcl 10 Mg Tablet 10 Mg PO TID Lovenox (Enoxaparin Sodium) 40 Mg/0.4 Ml Disp.syrin 40 Mg SQ DAILY Donepezil Hcl 10 Mg Tablet 10 Mg PO HS Colace (Docusate Sodium) 100 Mg Capsule 100 Mg PO PRN DAILY PRN Depakote Er (Divalproex Sodium) 500 Mg Tab.er.24h 750 Mg PO HS Coreg (Carvedilol) 6.25 Mg Tablet 6.25 Mg PO BIDWMEALS Symbicort 160-4.5 Mcg Inhaler (Budesonide/Formoterol Fumarate) 10.2 Gm Hfa.aer.ad 2 Puff IH BID Lipitor (Atorvastatin Calcium) 20 Mg Tablet 20 Mg PO QHS Aspirin Ec (Aspirin) 325 Mg Tablet.dr 325 Mg PO DAILY Amlodipine Besylate 10 Mg Tablet 10 Mg PO DAILY Albuterol Sulfate Conc Neb Soln (Albuterol Sulfate) 2.5 Mg/0.5 Ml Vial.neb 2.5 Mg NEB PRN Q6HRS PRN Acetaminophen 650 Mg/20.3 Ml Solution 650 Mg PO PRN Q6HRS PRN I have reviewed the current psychotropics carefully including drug interactions. Risk benefit ratio favors no change other than as noted in my dictated progress note. Diagnosis: Problems: (1) Anxiety disorder (2) Major depressive disorder, recurrent episode (3) Psychosis, atypical (4) Impulse control disorder GWEN ROY MD Apr 03, 2018 08:00
[2018-04-03] MEDS: BUDESONIDE 0.5 MG/2 ML NEBU NEB SCH ×2 (09:59→21:16)
[2018-04-03] MEDS: ALBUTEROL SULFATE 2.5 MG/3 ML NEBU. NEB SCH ×4 (09:59→21:16)
[2018-04-03] MEDS: QUEtiapine 25 MG TABLET. PO SCH (13:10)
[2018-04-03 16:40] VITALS: BP 138/78
[2018-04-03] MEDS: HYDROcodone/APAP 5/325MG 1 TAB TABLET PO PRN (17:34)
[2018-04-03] MEDS: DONEPEZIL HCL 10 MG TABLET PO SCH (19:44)
[2018-04-03] MEDS: PATCH REMOVAL. MC SCH (19:44)
[2018-04-03] MEDS: ATORVASTATIN CALCIUM 20 MG TABLET PO SCH (19:44)
[2018-04-03] MEDS: ACETAMINOPHEN 325 MG TABLET PO PRN (20:03)
--- NOTE | 2018-04-03 20:58 | PN ---
DATE: 04/02/2018 PSYCHIATRIC PROGRESS NOTE This late entry 04/02/2018 covers elements not covered in my initial note. SUBJECTIVE: I met with the patient in the evening. The patient slept 5-3/4 hours previous night. She has been somewhat withdrawn, somewhat anxious, labile. I have gotten information from the family that she has a long history of bipolar disorder. We will try and obtain those records. REVIEW OF SYSTEMS: Ambulation impaired, in wheelchair. No CV, , pulmonary, eye, ENT system symptoms on review. MENTAL STATUS EXAM: Oriented to herself and situation. Speech is coherent at times, somewhat pressured. She is convinced that her son is trying to steal from her. Abstraction fair, computation impaired, language function intact. Mood and affect remain somewhat anxious, labile. LABORATORY DATA: Reviewed. IMPRESSION: Probable bipolar 1 disorder, mixed with psychotic features; cognitive disorder, unspecified. Rest unchanged. PLAN: Get past psychiatric records, continue psychotropics unchanged for now. Valproic acid level subtherapeutic at 47. We may need to adjust Depakote to reach therapeutic level. MAN Rk ROY MD DR: HERMELINDA/alexandra JOB#: [id number] / [id number]
--- NOTE | 2018-04-03 22:53 | PDOC ---
Exam Note: Akshat Note: Please also refer to the separate dictated note~for this date of service dictated separately.~Patient seen individually. Discussed the patient with Nursing staff reviewed the chart.~Reviewed interim history and current functioning. Reviewed vital signs,~Labs/ Radiology~and current medications noted below. Continue current treatment with the changes noted in the dictated addendum note Assessment: Vital Signs: Vital Signs Date Time Temp Pulse Resp B/P (MAP) Pulse Ox O2 Delivery O2 Flow Rate FiO2 04/03/18 21:15 96 Nasal Cannula 2.5 04/03/18 17:35 66 138/78 04/03/18 16:40 97.4 16 I&O Intake and Output 04/03/18 07:01 Intake Total 845 ml Balance 845 ml Intake Oral 845 ml # Bowel Movements 1 Current Medications: Meds: Current Medications Multi-Ingredient Ointment (Analgesic [place]) 1 attila PRN QID PRN TP MUSCLE PAIN; Start 03/27/18 at 18:45 Al Hydroxide/Mg Hydroxide (Mylanta Plus Xs) 15 ml PRN AFTMEALHC PRN PO DYSPEPSIA; Start 03/27/18 at 18:45 Magnesium Hydroxide (Milk Of Magnesia) 2,400 mg PRN QHS PRN PO CONSTIPATION; Start 03/27/18 at 18:45 Aspirin (Aspirin Enteric Coated) 325 mg DAILY PO Last administered on at 07:32; Start 03/28/18 at 09:00 Atorvastatin Calcium (Lipitor) 20 mg QHS PO Last administered on 04/03/18at 19: 44; Start 03/27/18 at 21:00 Estrogens Conjugated (Premarin) 0.5 attila PRN DAILY PRN VG vaginal dryness; Start 03/27/18 at 19:15 Acetaminophen/ Hydrocodone Bitart (Lortab 5/325) 1 tab PRN Q12HR PRN PO PAIN Last administered on 03/30/18at 09:06; Start 03/27/18 at 19:15; Stop 03/30/18 at 15:02; Status DC Ipratropium [place] (Atrovent) 0.2 mg PRN Q6HRS PRN IH SHORTNESS OF BREATH; Start 03/27/18 at 19:15 Levothyroxine Sodium (Synthroid) 75 mcg DAILYAC PO Last administered on at 08:40; Start 03/28/18 at 07:30; Stop 03/28/18 at 12:26; Status DC Lisinopril (Prinivil) 10 mg DAILY PO Last administered on 04/03/18at 07:32; Start 03/28/18 at 09:00 Acetaminophen (Tylenol) 650 mg PRN Q6HRS PRN PO PAIN / TEMP Last administered on 04/03/18at 20:03; Start 03/27/18 at 19:45 Non-Formulary Medication (Albuterol Sulfate (Albuterol Sulfate Conc Neb Soln)) 2.5 mg PRN Q6HRS PRN NEB SHORTNESS OF BREATH; Start 03/27/18 at 19:15; Status UNV Amlodipine Besylate (Norvasc) 10 mg DAILY PO Last administered on 03/31/18at 08 :38; Start 03/28/18 at 09:00; Stop 03/31/18 at 12:27; Status DC Non-Formulary Medication (Budesonide/ Formoterol Fumarate (Symbicort 160-4.5 Mcg Inhaler)) 2 puff BID IH ; Start 03/27/18 at 21:00; Status UNV Carvedilol (Coreg) 6.25 mg BIDWMEALS PO Last administered on 04/03/18at 17:35; Start 03/27/18 at 20:00 Divalproex Sodium (Depakote Er) 750 mg QHS PO Last administered on 03/27/18at 20:53; Start 03/27/18 at 21:00; Stop 03/28/18 at 21:13; Status DC Docusate Sodium (Colace) 100 mg PRN DAILY PRN PO HARD STOOLS; Start 03/27/18 at 19:45 Donepezil HCl (Aricept) 10 mg QHS PO Last administered on 04/03/18at 19:44; Start 03/27/18 at 21:00 Enoxaparin Sodium (Lovenox 40mg Syringe) 40 mg DAILY SQ Last administered on at 07:31; Start 03/28/18 at 09:00 Hydralazine HCl (Apresoline) 10 mg TID PO Last administered on 03/31/18at 08:39 ; Start 03/27/18 at 21:00; Stop 03/31/18 at 12:27; Status DC Multivitamins/ Calcium (Thera-M Plus) 1 tab DAILY PO Last administered on 04/03 07:32; Start 03/28/18 at 09:00 Olanzapine (ZyPREXA) 5 mg PRN DAILY PRN PO ANXIETY/AGITATION Last administered on 03/29/18at 10:50; Start 03/28/18 at 09:00 Pantoprazole Sodium (Protonix) 40 mg DAILYAC PO Last administered on at 07:31; Start 03/28/18 at 07:30 Phenazopyridine HCl (Pyridium) 100 mg PRN TID PRN PO URINARY PAIN; Start 03/27 at 19:45 Polyethylene Glycol (miraLAX) 17 gm PRN BID PRN PO CONSTIPATION; Start at 09:00 Sodium Chloride (Saline Mist Nasal) 1 attila QID NS ; Start 03/27/18 at 21:00; Status Cancel Trazodone HCl (Desyrel) 25 mg PRN BID PRN PO ANXIETY/AGITATION; Start at 19:45 Trazodone HCl (Desyrel) 50 mg PRN QHS PRN PO INSOMNIA; Start 03/27/18 at 19:45 Lidocaine (Lidoderm) 1 patch DAILY TD Last administered on 04/03/18at 07:31; Start 03/28/18 at 09:00 Multivitamins/ Minerals (I-[place]) 1 tab DAILY PO Last administered on at 07:31; Start 03/28/18 at 09:00 Miscellaneous (Lidoderm Patch Removal) 1 ea QHS MC Last administered on at 19:44; Start 03/27/18 at 21:00 Albuterol Sulfate (Ventolin) 2.5 mg PRN Q6HRS PRN NEB SHORTNESS OF BREATH; Start 03/27/18 at 19:45 Albuterol Sulfate (Ventolin) 2.5 mg RTQID NEB Last administered on 04/03/18at 21:16; Start 03/27/18 at 20:00 Budesonide (Pulmicort) 0.5 mg RTBID NEB Last administered on 04/03/18at 21:16; Start 03/27/18 at 20:00 Sodium Chloride ([place] Saline Nasal) 2 attila QID NS ; Start 03/27/18 at 21:00; Stop 03/28/18 at 13:08; Status DC Levothyroxine Sodium (Synthroid) 75 mcg DAILY06 PO Last administered on at 04:55; Start 03/29/18 at 06:00 Sodium Chloride (Saline Mist Nasal) 1 attila PRN QID PRN NS NASAL CONGESTION; Start 03/28/18 at 13:15 Divalproex Sodium (Depakote Sprinkles) 750 mg HS PO Last administered on at 20:20; Start 03/28/18 at 21:30; Stop 03/30/18 at 14:27; Status DC Sertraline HCl (Zoloft) 25 mg DAILY PO Last administered on 03/31/18at 08:39; Start 03/29/18 at 09:00; Stop 03/31/18 at 09:01; Status DC Sertraline HCl (Zoloft) 50 mg DAILY PO Last administered on 04/03/18at 07:32; Start 04/01/18 at 09:00 Divalproex Sodium (Depakote Sprinkles) 500 mg BID94 PO Last administered on at 07:55; Start 03/30/18 at 09:00; Stop 03/30/18 at 14:27; Status DC Quetiapine Fumarate (SEROquel) 12.5 mg 1300 PO Last administered on 04/03/18at 13:10; Start 03/30/18 at 13:00 Divalproex Sodium (Depakote Sprinkles) 500 mg BID PO Last administered on 04/01at 09:59; Start 03/30/18 at 21:00; Stop 04/01/18 at 17:43; Status DC Acetaminophen/ Hydrocodone Bitart (Lortab 5/325) 1 tab PRN Q6HRS PRN PO PAIN Last administered on 04/03/18at 17:34; Start 03/30/18 at 15:15 Olanzapine (ZyPREXA ZYDIS) 2.5 mg PRN Q2HR PRN PO PSYCHOSIS; Start 03/30/18 at 19:15 Divalproex Sodium (Depakote Sprinkles) 625 mg BID PO Last administered on 04/03at 19:44; Start 04/01/18 at 21:00 Active Scripts Active Reported [occuvite] 1 Tab PO DAILY Pyridium (Phenazopyridine Hcl) 100 Mg Tablet 100 Mg PO PRN TID PRN Trazodone Hcl 50 Mg Tablet 25 Mg PO PRN QHS PRN Premarin (Estrogens, Conjugated) 30 Gm Cream.appl 0.5 Gm VG PRN DAILY PRN Multivitamins (Multivitamin) 1 Each Tablet 1 Tab PO DAILY Trazodone Hcl 50 Mg Tablet 25 Mg PO BID PRN [place] Saline (Sodium Chloride) 50 Ml Drops 2 Drop NS QID Miralax (Polyethylene Glycol 3350) 17 Gm Powd.pack 17 Gm PO PRN BID PRN Protonix (Pantoprazole Sodium) 40 Mg Tablet.dr 40 Mg PO DAILY Zyprexa (Olanzapine) 5 Mg Tablet 5 Mg PO PRN DAILY PRN Lisinopril 10 Mg Tablet 10 Mg PO DAILY [lidoderm] 1 Patch TD DAILY Levothyroxine Sodium 75 Mcg Tablet 75 Mcg PO DAILYAC Ipratropium [place] 0.2 Mg/1 Ml Solution 0.2 Mg IH PRN Q6HRS PRN Hydrocodone-Apap 5-325 (Hydrocodone Bit/Acetaminophen) 1 Each Tablet 1 Tab PO PRN Q12HR PRN Hydralazine Hcl 10 Mg Tablet 10 Mg PO TID Lovenox (Enoxaparin Sodium) 40 Mg/0.4 Ml Disp.syrin 40 Mg SQ DAILY Donepezil Hcl 10 Mg Tablet 10 Mg PO HS Colace (Docusate Sodium) 100 Mg Capsule 100 Mg PO PRN DAILY PRN Depakote Er (Divalproex Sodium) 500 Mg Tab.er.24h 750 Mg PO HS Coreg (Carvedilol) 6.25 Mg Tablet 6.25 Mg PO BIDWMEALS Symbicort 160-4.5 Mcg Inhaler (Budesonide/Formoterol Fumarate) 10.2 Gm Hfa.aer.ad 2 Puff IH BID Lipitor (Atorvastatin Calcium) 20 Mg Tablet 20 Mg PO QHS Aspirin Ec (Aspirin) 325 Mg Tablet.dr 325 Mg PO DAILY Amlodipine Besylate 10 Mg Tablet 10 Mg PO DAILY Albuterol Sulfate Conc Neb Soln (Albuterol Sulfate) 2.5 Mg/0.5 Ml Vial.neb 2.5 Mg NEB PRN Q6HRS PRN Acetaminophen 650 Mg/20.3 Ml Solution 650 Mg PO PRN Q6HRS PRN I have reviewed the current psychotropics carefully including drug interactions. Risk benefit ratio favors no change other than as noted in my dictated progress note. Diagnosis: Problems: (1) Anxiety disorder (2) Major depressive disorder, recurrent episode (3) Psychosis, atypical (4) Impulse control disorder GWEN ROY MD Apr 03, 2018 22:53
[2018-04-04] MEDS: ALBUTEROL SULFATE 2.5 MG/3 ML NEBU. NEB SCH ×4 (04:54→21:21)
[2018-04-04] MEDS: LEVOTHYROXINE 75 MCG TABLET PO SCH (04:56)
[2018-04-04 05:43] VITALS: BP 100/62
[2018-04-04 07:27] LABS: BASO % 1 % (0-3); EOS # 0.2 x10^3/uL (0.0-0.7); EOS % 4 % (0-3); HEMATOCRIT 35.8 % (36.0-47.0); HEMOGLOBIN 11.9 g/dL (12.0-15.5); LYMPH # 1.5 x10^3/uL (1.0-4.8); LYMPH % 35 % (24-48); MEAN CORPUSCULAR HEMOGLOBIN 31 pg (25-35); MEAN CORPUSCULAR HGB CONC 33 g/dL (31-37); MEAN CORPUSCULAR VOLUME 94 fL (79-100); MONO # 0.7 x10^3/uL (0.0-1.1); MONO % 15 % (0-9); NEUT % 45 % (31-73); PLATELET COUNT 169 x10^3/uL (140-400); RED BLOOD COUNT 3.82 x10^6/uL (3.50-5.40); RED CELL DISTRIBUTION WIDTH 15.4 % (11.5-14.5); WHITE BLOOD COUNT 4.3 x10^3/uL (4.0-11.0)
[2018-04-04] MEDS: ASPIRIN ENTERIC COATED 325 MG TABLET.DR. PO SCH (07:30)
[2018-04-04] MEDS: ENOXAPARIN 40 MG/0.4 ML SYRINGE. SQ SCH (07:30)
[2018-04-04] MEDS: MULTIVITAMIN I-VITE TABLET. PO SCH (07:30)
[2018-04-04] MEDS: LIDOCAINE (700MG/PATCH) PATCH. TD SCH (07:30)
[2018-04-04] MEDS: LISINOPRIL 10 MG TABLET PO SCH (07:30)
[2018-04-04] MEDS: MULTIVITAMIN with MINERAL TABLET. PO SCH (07:31)
[2018-04-04] MEDS: CARVEDILOL 6.25 MG TABLET PO SCH ×2 (07:31→17:34)
[2018-04-04] MEDS: SERTRALINE 25 MG TABLET. PO SCH (07:31)
[2018-04-04] MEDS: PANTOPRAZOLE 40 MG TABLET. PO SCH (07:31)
[2018-04-04] MEDS: DIVALPROEX 125 MG CAP.SPRINK PO SCH ×2 (07:31→19:56)
[2018-04-04 07:41] LABS: ALBUMIN 2.5 g/dL (3.4-5.0); ALBUMIN/GLOBULIN RATIO 0.8 (1.0-1.7); CALCIUM 8.4 mg/dL (8.5-10.1); CREATININE 0.8 mg/dL (0.6-1.0); GFR 67.8; POTASSIUM 4.2 mmol/L (3.5-5.1); TOTAL BILIRUBIN 0.4 mg/dL (0.2-1.0); TOTAL PROTEIN 5.6 g/dL (6.4-8.2)
[2018-04-04 07:47] LABS: VAL ACID 54 mcg/mL (50-100)
[2018-04-04] MEDS: BUDESONIDE 0.5 MG/2 ML NEBU NEB SCH ×2 (10:07→21:21)
[2018-04-04] MEDS: HYDROcodone/APAP 5/325MG 1 TAB TABLET PO PRN ×2 (12:09→18:32)
[2018-04-04] MEDS: QUEtiapine 25 MG TABLET. PO SCH (14:08)
[2018-04-04 15:46] VITALS: BP 130/75
[2018-04-04] MEDS: ATORVASTATIN CALCIUM 20 MG TABLET PO SCH (19:56)
[2018-04-04] MEDS: PATCH REMOVAL. MC SCH (19:56)
[2018-04-04] MEDS: DONEPEZIL HCL 10 MG TABLET PO SCH (19:56)
--- NOTE | 2018-04-04 22:03 | PDOC ---
Exam Note: Akshat Note: Please also refer to the separate dictated note~for this date of service dictated separately.~Patient seen individually. Discussed the patient with Nursing staff reviewed the chart.~Reviewed interim history and current functioning. Reviewed vital signs,~Labs/ Radiology~and current medications noted below. Continue current treatment with the changes noted in the dictated addendum note Assessment: Vital Signs: Vital Signs Date Time Temp Pulse Resp B/P (MAP) Pulse Ox O2 Delivery O2 Flow Rate FiO2 04/04/18 21:20 96 Nasal Cannula 2.0 04/04/18 17:34 62 130/75 04/04/18 15:46 98.3 20 I&O Intake and Output 04/04/18 07:01 Intake Total 903 ml Balance 903 ml Intake Oral 903 ml # Bowel Movements 2 Labs: Laboratory Tests Test 04/04/18 06:51 White Blood Count 4.3 x10^3/uL (4.0-11.0) Red Blood Count 3.82 x10^6/uL (3.50-5.40) Hemoglobin 11.9 g/dL (12.0-15.5) L Hematocrit 35.8 % (36.0-47.0) L Mean Corpuscular Volume 94 fL (79-100) Mean Corpuscular Hemoglobin 31 pg (25-35) Mean Corpuscular Hemoglobin Concent 33 g/dL (31-37) Red Cell Distribution Width 15.4 % (11.5-14.5) H Platelet Count 169 x10^3/uL (140-400) Neutrophils (%) (Auto) 45 % (31-73) Lymphocytes (%) (Auto) 35 % (24-48) Monocytes (%) (Auto) 15 % (0-9) H Eosinophils (%) (Auto) 4 % (0-3) H Basophils (%) (Auto) 1 % (0-3) Neutrophils # (Auto) 2.0 x10^3uL (1.8-7.7) Lymphocytes # (Auto) 1.5 x10^3/uL (1.0-4.8) Monocytes # (Auto) 0.7 x10^3/uL (0.0-1.1) Eosinophils # (Auto) 0.2 x10^3/uL (0.0-0.7) Basophils # (Auto) 0.0 x10^3/uL (0.0-0.2) Sodium Level 142 mmol/L (136-145) Potassium Level 4.2 mmol/L (3.5-5.1) Chloride Level 103 mmol/L (98-107) Carbon Dioxide Level 33 mmol/L (21-32) H Anion Gap 6 (6-14) Blood Urea Nitrogen 19 mg/dL (7-20) Creatinine 0.8 mg/dL (0.6-1.0) Estimated GFR (Cockcroft-Gault) 67.8 BUN/Creatinine Ratio 24 (6-20) H Glucose Level 83 mg/dL (70-99) Calcium Level 8.4 mg/dL (8.5-10.1) L Magnesium Level 2.0 mg/dL (1.8-2.4) Total Bilirubin 0.4 mg/dL (0.2-1.0) Aspartate Amino Transferase (AST) 15 U/L (15-37) Alanine Aminotransferase (ALT) 22 U/L (14-59) Alkaline Phosphatase 39 U/L (46-116) L Total Protein 5.6 g/dL (6.4-8.2) L Albumin 2.5 g/dL (3.4-5.0) L Albumin/Globulin Ratio 0.8 (1.0-1.7) L Valproic Acid Level 54 mcg/mL (50-100) Valproic Acid Last Dose Date 04/03/18 Valproic Acid Last Dose Time 2100 Current Medications: Meds: Current Medications Multi-Ingredient Ointment (Analgesic [place]) 1 attila PRN QID PRN TP MUSCLE PAIN; Start 03/27/18 at 18:45 Al Hydroxide/Mg Hydroxide (Mylanta Plus Xs) 15 ml PRN AFTMEALHC PRN PO DYSPEPSIA; Start 03/27/18 at 18:45 Magnesium Hydroxide (Milk Of Magnesia) 2,400 mg PRN QHS PRN PO CONSTIPATION; Start 03/27/18 at 18:45 Aspirin (Aspirin Enteric Coated) 325 mg DAILY PO Last administered on at 07:30; Start 03/28/18 at 09:00 Atorvastatin Calcium (Lipitor) 20 mg QHS PO Last administered on 04/04/18at 19: 56; Start 03/27/18 at 21:00 Estrogens Conjugated (Premarin) 0.5 attila PRN DAILY PRN VG vaginal dryness; Start 03/27/18 at 19:15 Acetaminophen/ Hydrocodone Bitart (Lortab 5/325) 1 tab PRN Q12HR PRN PO PAIN Last administered on 03/30/18at 09:06; Start 03/27/18 at 19:15; Stop 03/30/18 at 15:02; Status DC Ipratropium [place] (Atrovent) 0.2 mg PRN Q6HRS PRN IH SHORTNESS OF BREATH; Start 03/27/18 at 19:15 Levothyroxine Sodium (Synthroid) 75 mcg DAILYAC PO Last administered on at 08:40; Start 03/28/18 at 07:30; Stop 03/28/18 at 12:26; Status DC Lisinopril (Prinivil) 10 mg DAILY PO Last administered on 04/04/18at 07:30; Start 03/28/18 at 09:00 Acetaminophen (Tylenol) 650 mg PRN Q6HRS PRN PO PAIN / TEMP Last administered on 04/03/18at 20:03; Start 03/27/18 at 19:45 Non-Formulary Medication (Albuterol Sulfate (Albuterol Sulfate Conc Neb Soln)) 2.5 mg PRN Q6HRS PRN NEB SHORTNESS OF BREATH; Start 03/27/18 at 19:15; Status UNV Amlodipine Besylate (Norvasc) 10 mg DAILY PO Last administered on 03/31/18at 08 :38; Start 03/28/18 at 09:00; Stop 03/31/18 at 12:27; Status DC Non-Formulary Medication (Budesonide/ Formoterol Fumarate (Symbicort 160-4.5 Mcg Inhaler)) 2 puff BID IH ; Start 03/27/18 at 21:00; Status UNV Carvedilol (Coreg) 6.25 mg BIDWMEALS PO Last administered on 04/04/18at 17:34; Start 03/27/18 at 20:00 Divalproex Sodium (Depakote Er) 750 mg QHS PO Last administered on 03/27/18at 20:53; Start 03/27/18 at 21:00; Stop 03/28/18 at 21:13; Status DC Docusate Sodium (Colace) 100 mg PRN DAILY PRN PO HARD STOOLS; Start 03/27/18 at 19:45 Donepezil HCl (Aricept) 10 mg QHS PO Last administered on 04/04/18at 19:56; Start 03/27/18 at 21:00 Enoxaparin Sodium (Lovenox 40mg Syringe) 40 mg DAILY SQ Last administered on 07:30; Start 03/28/18 at 09:00 Hydralazine HCl (Apresoline) 10 mg TID PO Last administered on 03/31/18at 08:39 ; Start 03/27/18 at 21:00; Stop 03/31/18 at 12:27; Status DC Multivitamins/ Calcium (Thera-M Plus) 1 tab DAILY PO Last administered on 04/04 07:31; Start 03/28/18 at 09:00 Olanzapine (ZyPREXA) 5 mg PRN DAILY PRN PO ANXIETY/AGITATION Last administered on 03/29/18at 10:50; Start 03/28/18 at 09:00 Pantoprazole Sodium (Protonix) 40 mg DAILYAC PO Last administered on 07:31; Start 03/28/18 at 07:30 Phenazopyridine HCl (Pyridium) 100 mg PRN TID PRN PO URINARY PAIN; Start 03/27 at 19:45 Polyethylene Glycol (miraLAX) 17 gm PRN BID PRN PO CONSTIPATION; Start at 09:00 Sodium Chloride (Saline Mist Nasal) 1 attila QID NS ; Start 03/27/18 at 21:00; Status Cancel Trazodone HCl (Desyrel) 25 mg PRN BID PRN PO ANXIETY/AGITATION; Start at 19:45 Trazodone HCl (Desyrel) 50 mg PRN QHS PRN PO INSOMNIA; Start 03/27/18 at 19:45 Lidocaine (Lidoderm) 1 patch DAILY TD Last administered on 04/04/18at 07:30; Start 03/28/18 at 09:00 Multivitamins/ Minerals (I-[place]) 1 tab DAILY PO Last administered on at 07:30; Start 03/28/18 at 09:00 Miscellaneous (Lidoderm Patch Removal) 1 ea QHS MC Last administered on at 19:56; Start 03/27/18 at 21:00 Albuterol Sulfate (Ventolin) 2.5 mg PRN Q6HRS PRN NEB SHORTNESS OF BREATH; Start 03/27/18 at 19:45 Albuterol Sulfate (Ventolin) 2.5 mg RTQID NEB Last administered on 04/04/18at 21:21; Start 03/27/18 at 20:00 Budesonide (Pulmicort) 0.5 mg RTBID NEB Last administered on 04/04/18at 21:21; Start 03/27/18 at 20:00 Sodium Chloride ([place] Sal[place] Nasal) 2 attila QID NS ; Start 03/27/18 at 21:00; Stop 03/28/18 at 13:08; Status DC Levothyroxine Sodium (Synthroid) 75 mcg DAILY06 PO Last administered on at 04:56; Start 03/29/18 at 06:00 Sodium Chloride (Saline Mist Nasal) 1 attila PRN QID PRN NS NASAL CONGESTION; Start 03/28/18 at 13:15 Divalproex Sodium (Depakote Sprinkles) 750 mg HS PO Last administered on at 20:20; Start 03/28/18 at 21:30; Stop 03/30/18 at 14:27; Status DC Sertraline HCl (Zoloft) 25 mg DAILY PO Last administered on 03/31/18at 08:39; Start 03/29/18 at 09:00; Stop 03/31/18 at 09:01; Status DC Sertraline HCl (Zoloft) 50 mg DAILY PO Last administered on 04/04/18at 07:31; Start 04/01/18 at 09:00 Divalproex Sodium (Depakote Sprinkles) 500 mg BID94 PO Last administered on at 07:55; Start 03/30/18 at 09:00; Stop 03/30/18 at 14:27; Status DC Quetiapine Fumarate (SEROquel) 12.5 mg 1300 PO Last administered on 04/04/18at 14:08; Start 03/30/18 at 13:00 Divalproex Sodium (Depakote Sprinkles) 500 mg BID PO Last administered on 04/01at 09:59; Start 03/30/18 at 21:00; Stop 04/01/18 at 17:43; Status DC Acetaminophen/ Hydrocodone Bitart (Lortab 5/325) 1 tab PRN Q6HRS PRN PO PAIN Last administered on 04/04/18at 18:32; Start 03/30/18 at 15:15 Olanzapine (ZyPREXA ZYDIS) 2.5 mg PRN Q2HR PRN PO PSYCHOSIS; Start 03/30/18 at 19:15 Divalproex Sodium (Depakote Sprinkles) 625 mg BID PO Last administered on 04/04at 19:56; Start 04/01/18 at 21:00 Active Scripts Active Reported [occuvite] 1 Tab PO DAILY Pyridium (Phenazopyridine Hcl) 100 Mg Tablet 100 Mg PO PRN TID PRN Trazodone Hcl 50 Mg Tablet 25 Mg PO PRN QHS PRN Premarin (Estrogens, Conjugated) 30 Gm Cream.appl 0.5 Gm VG PRN DAILY PRN Multivitamins (Multivitamin) 1 Each Tablet 1 Tab PO DAILY Trazodone Hcl 50 Mg Tablet 25 Mg PO BID PRN [place] Sal[place] (Sodium Chloride) 50 Ml Drops 2 Drop NS QID Miralax (Polyethylene Glycol 3350) 17 Gm Powd.pack 17 Gm PO PRN BID PRN Protonix (Pantoprazole Sodium) 40 Mg Tablet.dr 40 Mg PO DAILY Zyprexa (Olanzapine) 5 Mg Tablet 5 Mg PO PRN DAILY PRN Lisinopril 10 Mg Tablet 10 Mg PO DAILY [lidoderm] 1 Patch TD DAILY Levothyroxine Sodium 75 Mcg Tablet 75 Mcg PO DAILYAC Ipratropium [place] 0.2 Mg/1 Ml Solution 0.2 Mg IH PRN Q6HRS PRN Hydrocodone-Apap 5-325 (Hydrocodone Bit/Acetaminophen) 1 Each Tablet 1 Tab PO PRN Q12HR PRN Hydralazine Hcl 10 Mg Tablet 10 Mg PO TID Lovenox (Enoxaparin Sodium) 40 Mg/0.4 Ml Disp.syrin 40 Mg SQ DAILY Donepezil Hcl 10 Mg Tablet 10 Mg PO HS Colace (Docusate Sodium) 100 Mg Capsule 100 Mg PO PRN DAILY PRN Depakote Er (Divalproex Sodium) 500 Mg Tab.er.24h 750 Mg PO HS Coreg (Carvedilol) 6.25 Mg Tablet 6.25 Mg PO BIDWMEALS Symbicort 160-4.5 Mcg Inhaler (Budesonide/Formoterol Fumarate) 10.2 Gm Hfa.aer.ad 2 Puff IH BID Lipitor (Atorvastatin Calcium) 20 Mg Tablet 20 Mg PO QHS Aspirin Ec (Aspirin) 325 Mg Tablet.dr 325 Mg PO DAILY Amlodipine Besylate 10 Mg Tablet 10 Mg PO DAILY Albuterol Sulfate Conc Neb Soln (Albuterol Sulfate) 2.5 Mg/0.5 Ml Vial.neb 2.5 Mg NEB PRN Q6HRS PRN Acetaminophen 650 Mg/20.3 Ml Solution 650 Mg PO PRN Q6HRS PRN I have reviewed the current psychotropics carefully including drug interactions. Risk benefit ratio favors no change other than as noted in my dictated progress note. Diagnosis: Problems: (1) Anxiety disorder (2) Major depressive disorder, recurrent episode (3) Psychosis, atypical (4) Impulse control disorder GWEN ROY MD Apr 04, 2018 22:03
[2018-04-05] MEDS: HYDROcodone/APAP 5/325MG 1 TAB TABLET PO PRN ×2 (01:39→10:47)
[2018-04-05] MEDS: ALBUTEROL SULFATE 2.5 MG/3 ML NEBU. NEB SCH ×4 (05:42→20:37)
[2018-04-05] MEDS: LEVOTHYROXINE 75 MCG TABLET PO SCH (06:12)
[2018-04-05 06:34] VITALS: BP 122/77
[2018-04-05] MEDS: ENOXAPARIN 40 MG/0.4 ML SYRINGE. SQ SCH (07:28)
[2018-04-05] MEDS: MULTIVITAMIN with MINERAL TABLET. PO SCH (07:29)
[2018-04-05] MEDS: DIVALPROEX 125 MG CAP.SPRINK PO SCH ×2 (07:29→19:32)
[2018-04-05] MEDS: LIDOCAINE (700MG/PATCH) PATCH. TD SCH (07:29)
[2018-04-05] MEDS: SERTRALINE 25 MG TABLET. PO SCH (07:30)
[2018-04-05] MEDS: PANTOPRAZOLE 40 MG TABLET. PO SCH (07:30)
[2018-04-05] MEDS: LISINOPRIL 10 MG TABLET PO SCH (07:30)
[2018-04-05] MEDS: ASPIRIN ENTERIC COATED 325 MG TABLET.DR. PO SCH (07:30)
[2018-04-05] MEDS: MULTIVITAMIN I-VITE TABLET. PO SCH (07:30)
[2018-04-05] MEDS: CARVEDILOL 6.25 MG TABLET PO SCH ×2 (07:31→17:02)
[2018-04-05] MEDS: BUDESONIDE 0.5 MG/2 ML NEBU NEB SCH ×2 (10:15→20:37)
[2018-04-05] MEDS: QUEtiapine 25 MG TABLET. PO SCH (14:06)
[2018-04-05 16:13] VITALS: BP 127/74
[2018-04-05] MEDS: PATCH REMOVAL. MC SCH (19:32)
[2018-04-05] MEDS: DONEPEZIL HCL 10 MG TABLET PO SCH (19:32)
[2018-04-05] MEDS: ATORVASTATIN CALCIUM 20 MG TABLET PO SCH (19:32)
--- NOTE | 2018-04-05 23:14 | PDOC ---
Exam Note: Akshat Note: Please also refer to the separate dictated note~for this date of service dictated separately.~Patient seen individually. Discussed the patient with Nursing staff reviewed the chart.~Reviewed interim history and current functioning. Reviewed vital signs,~Labs/ Radiology~and current medications noted below. Continue current treatment with the changes noted in the dictated addendum note Assessment: Vital Signs: Vital Signs Date Time Temp Pulse Resp B/P (MAP) Pulse Ox O2 Delivery O2 Flow Rate FiO2 04/05/18 20:35 95 Nasal Cannula 2.0 04/05/18 17:02 74 127/74 04/05/18 16:13 97.8 20 I&O Intake and Output 04/05/18 07:01 Intake Total 1560 ml Balance 1560 ml Intake Oral 1560 ml Current Medications: Meds: Current Medications Multi-Ingredient Ointment (Analgesic [place]) 1 attila PRN QID PRN TP MUSCLE PAIN; Start 03/27/18 at 18:45 Al Hydroxide/Mg Hydroxide (Mylanta Plus Xs) 15 ml PRN AFTMEALHC PRN PO DYSPEPSIA; Start 03/27/18 at 18:45 Magnesium Hydroxide (Milk Of Magnesia) 2,400 mg PRN QHS PRN PO CONSTIPATION; Start 03/27/18 at 18:45 Aspirin (Aspirin Enteric Coated) 325 mg DAILY PO Last administered on at 07:30; Start 03/28/18 at 09:00 Atorvastatin Calcium (Lipitor) 20 mg QHS PO Last administered on 04/05/18at 19: 32; Start 03/27/18 at 21:00 Estrogens Conjugated (Premarin) 0.5 attila PRN DAILY PRN VG vaginal dryness; Start 03/27/18 at 19:15 Acetaminophen/ Hydrocodone Bitart (Lortab 5/325) 1 tab PRN Q12HR PRN PO PAIN Last administered on 03/30/18at 09:06; Start 03/27/18 at 19:15; Stop 03/30/18 at 15:02; Status DC Ipratropium [place] (Atrovent) 0.2 mg PRN Q6HRS PRN IH SHORTNESS OF BREATH; Start 03/27/18 at 19:15 Levothyroxine Sodium (Synthroid) 75 mcg DAILYAC PO Last administered on at 08:40; Start 03/28/18 at 07:30; Stop 03/28/18 at 12:26; Status DC Lisinopril (Prinivil) 10 mg DAILY PO Last administered on 04/05/18at 07:30; Start 03/28/18 at 09:00 Acetaminophen (Tylenol) 650 mg PRN Q6HRS PRN PO PAIN / TEMP Last administered on 04/03/18at 20:03; Start 03/27/18 at 19:45 Non-Formulary Medication (Albuterol Sulfate (Albuterol Sulfate Conc Neb Soln)) 2.5 mg PRN Q6HRS PRN NEB SHORTNESS OF BREATH; Start 03/27/18 at 19:15; Status UNV Amlodipine Besylate (Norvasc) 10 mg DAILY PO Last administered on 03/31/18at 08 :38; Start 03/28/18 at 09:00; Stop 03/31/18 at 12:27; Status DC Non-Formulary Medication (Budesonide/ Formoterol Fumarate (Symbicort 160-4.5 Mcg Inhaler)) 2 puff BID IH ; Start 03/27/18 at 21:00; Status UNV Carvedilol (Coreg) 6.25 mg BIDWMEALS PO Last administered on 04/05/18at 17:02; Start 03/27/18 at 20:00 Divalproex Sodium (Depakote Er) 750 mg QHS PO Last administered on 03/27/18at 20:53; Start 03/27/18 at 21:00; Stop 03/28/18 at 21:13; Status DC Docusate Sodium (Colace) 100 mg PRN DAILY PRN PO HARD STOOLS; Start 03/27/18 at 19:45 Donepezil HCl (Aricept) 10 mg QHS PO Last administered on 04/05/18at 19:32; Start 03/27/18 at 21:00 Enoxaparin Sodium (Lovenox 40mg Syringe) 40 mg DAILY SQ Last administered on at 07:28; Start 03/28/18 at 09:00 Hydralazine HCl (Apresoline) 10 mg TID PO Last administered on 03/31/18at 08:39 ; Start 03/27/18 at 21:00; Stop 03/31/18 at 12:27; Status DC Multivitamins/ Calcium (Thera-M Plus) 1 tab DAILY PO Last administered on 04/05 07:29; Start 03/28/18 at 09:00 Olanzapine (ZyPREXA) 5 mg PRN DAILY PRN PO ANXIETY/AGITATION Last administered on 03/29/18at 10:50; Start 03/28/18 at 09:00 Pantoprazole Sodium (Protonix) 40 mg DAILYAC PO Last administered on 07:30; Start 03/28/18 at 07:30 Phenazopyridine HCl (Pyridium) 100 mg PRN TID PRN PO URINARY PAIN; Start 03/27 at 19:45 Polyethylene Glycol (miraLAX) 17 gm PRN BID PRN PO CONSTIPATION; Start at 09:00 Sodium Chloride (Saline Mist Nasal) 1 attila QID NS ; Start 03/27/18 at 21:00; Status Cancel Trazodone HCl (Desyrel) 25 mg PRN BID PRN PO ANXIETY/AGITATION; Start at 19:45 Trazodone HCl (Desyrel) 50 mg PRN QHS PRN PO INSOMNIA; Start 03/27/18 at 19:45 Lidocaine (Lidoderm) 1 patch DAILY TD Last administered on 04/05/18 07:29; Start 03/28/18 at 09:00 Multivitamins/ Minerals (I-Angelo) 1 tab DAILY PO Last administered on 07:30; Start 03/28/18 at 09:00 Miscellaneous (Lidoderm Patch Removal) 1 ea QHS MC Last administered on 19:32; Start 03/27/18 at 21:00 Albuterol Sulfate (Ventolin) 2.5 mg PRN Q6HRS PRN NEB SHORTNESS OF BREATH; Start 03/27/18 at 19:45 Albuterol Sulfate (Ventolin) 2.5 mg RTQID NEB Last administered on 04/05/18 20:37; Start 03/27/18 at 20:00 Budesonide (Pulmicort) 0.5 mg RTBID NEB Last administered on 04/05/18 20:37; Start 03/27/18 at 20:00 Sodium Chloride ([place] Saline Nasal) 2 attila QID NS ; Start 03/27/18 at 21:00; Stop 03/28/18 at 13:08; Status DC Levothyroxine Sodium (Synthroid) 75 mcg DAILY06 PO Last administered on at 06:12; Start 03/29/18 at 06:00 Sodium Chloride (Saline Mist Nasal) 1 attila PRN QID PRN NS NASAL CONGESTION; Start 03/28/18 at 13:15 Divalproex Sodium (Depakote Sprinkles) 750 mg HS PO Last administered on at 20:20; Start 03/28/18 at 21:30; Stop 03/30/18 at 14:27; Status DC Sertraline HCl (Zoloft) 25 mg DAILY PO Last administered on 03/31/18at 08:39; Start 03/29/18 at 09:00; Stop 03/31/18 at 09:01; Status DC Sertraline HCl (Zoloft) 50 mg DAILY PO Last administered on 04/05/18at 07:30; Start 04/01/18 at 09:00 Divalproex Sodium (Depakote Sprinkles) 500 mg BID94 PO Last administered on at 07:55; Start 03/30/18 at 09:00; Stop 03/30/18 at 14:27; Status DC Quetiapine Fumarate (SEROquel) 12.5 mg 1300 PO Last administered on 04/05/18at 14:06; Start 03/30/18 at 13:00 Divalproex Sodium (Depakote Sprinkles) 500 mg BID PO Last administered on 04/01at 09:59; Start 03/30/18 at 21:00; Stop 04/01/18 at 17:43; Status DC Acetaminophen/ Hydrocodone Bitart (Lortab 5/325) 1 tab PRN Q6HRS PRN PO PAIN Last administered on 04/05/18at 10:47; Start 03/30/18 at 15:15 Olanzapine (ZyPREXA ZYDIS) 2.5 mg PRN Q2HR PRN PO PSYCHOSIS; Start 03/30/18 at 19:15 Divalproex Sodium (Depakote Sprinkles) 625 mg BID PO Last administered on 04/05at 19:32; Start 12/26/18 at 21:00 Active Scripts Active Reported [occuvite] 1 Tab PO DAILY Pyridium (Phenazopyridine Hcl) 100 Mg Tablet 100 Mg PO PRN TID PRN Trazodone Hcl 50 Mg Tablet 25 Mg PO PRN QHS PRN Premarin (Estrogens, Conjugated) 30 Gm Cream.appl 0.5 Gm VG PRN DAILY PRN Multivitamins (Multivitamin) 1 Each Tablet 1 Tab PO DAILY Trazodone Hcl 50 Mg Tablet 25 Mg PO BID PRN [place] Saline (Sodium Chloride) 50 Ml Drops 2 Drop NS QID Miralax (Polyethylene Glycol 3350) 17 Gm Powd.pack 17 Gm PO PRN BID PRN Protonix (Pantoprazole Sodium) 40 Mg Tablet.dr 40 Mg PO DAILY Zyprexa (Olanzapine) 5 Mg Tablet 5 Mg PO PRN DAILY PRN Lisinopril 10 Mg Tablet 10 Mg PO DAILY [lidoderm] 1 Patch TD DAILY Levothyroxine Sodium 75 Mcg Tablet 75 Mcg PO DAILYAC Ipratropium [place] 0.2 Mg/1 Ml Solution 0.2 Mg IH PRN Q6HRS PRN Hydrocodone-Apap 5-325 (Hydrocodone Bit/Acetaminophen) 1 Each Tablet 1 Tab PO PRN Q12HR PRN Hydralazine Hcl 10 Mg Tablet 10 Mg PO TID Lovenox (Enoxaparin Sodium) 40 Mg/0.4 Ml Disp.syrin 40 Mg SQ DAILY Donepezil Hcl 10 Mg Tablet 10 Mg PO HS Colace (Docusate Sodium) 100 Mg Capsule 100 Mg PO PRN DAILY PRN Depakote Er (Divalproex Sodium) 500 Mg Tab.er.24h 750 Mg PO HS Coreg (Carvedilol) 6.25 Mg Tablet 6.25 Mg PO BIDWMEALS Symbicort 160-4.5 Mcg Inhaler (Budesonide/Formoterol Fumarate) 10.2 Gm Hfa.aer.ad 2 Puff IH BID Lipitor (Atorvastatin Calcium) 20 Mg Tablet 20 Mg PO QHS Aspirin Ec (Aspirin) 325 Mg Tablet.dr 325 Mg PO DAILY Amlodipine Besylate 10 Mg Tablet 10 Mg PO DAILY Albuterol Sulfate Conc Neb Soln (Albuterol Sulfate) 2.5 Mg/0.5 Ml Vial.neb 2.5 Mg NEB PRN Q6HRS PRN Acetaminophen 650 Mg/20.3 Ml Solution 650 Mg PO PRN Q6HRS PRN I have reviewed the current psychotropics carefully including drug interactions. Risk benefit ratio favors no change other than as noted in my dictated progress note. Diagnosis: Problems: (1) Anxiety disorder (2) Major depressive disorder, recurrent episode (3) Psychosis, atypical (4) Impulse control disorder GWEN ROY MD Apr 05, 2018 23:14
[2018-04-06] MEDS: LEVOTHYROXINE 75 MCG TABLET PO SCH (05:04)
[2018-04-06 05:45] VITALS: BP 144/80
[2018-04-06] MEDS: DIVALPROEX 125 MG CAP.SPRINK PO SCH ×2 (07:43→20:16)
[2018-04-06] MEDS: MULTIVITAMIN I-VITE TABLET. PO SCH (07:43)
[2018-04-06] MEDS: ASPIRIN ENTERIC COATED 325 MG TABLET.DR. PO SCH (07:44)
[2018-04-06] MEDS: CARVEDILOL 6.25 MG TABLET PO SCH ×2 (07:44→16:40)
[2018-04-06] MEDS: MULTIVITAMIN with MINERAL TABLET. PO SCH (07:44)
[2018-04-06] MEDS: PANTOPRAZOLE 40 MG TABLET. PO SCH (07:44)
[2018-04-06] MEDS: SERTRALINE 25 MG TABLET. PO SCH (07:44)
[2018-04-06] MEDS: ENOXAPARIN 40 MG/0.4 ML SYRINGE. SQ SCH (07:45)
[2018-04-06] MEDS: LISINOPRIL 10 MG TABLET PO SCH (07:45)
[2018-04-06] MEDS: LIDOCAINE (700MG/PATCH) PATCH. TD SCH (07:46)
[2018-04-06] MEDS: ALBUTEROL SULFATE 2.5 MG/3 ML NEBU. NEB SCH ×4 (08:00→20:20)
[2018-04-06] MEDS: HYDROcodone/APAP 5/325MG 1 TAB TABLET PO PRN ×2 (09:57→20:43)
[2018-04-06] MEDS: BUDESONIDE 0.5 MG/2 ML NEBU NEB SCH ×2 (10:53→20:20)
[2018-04-06] MEDS: QUEtiapine 25 MG TABLET. PO SCH (13:26)
[2018-04-06 16:51] VITALS: BP 110/65
[2018-04-06] MEDS: ATORVASTATIN CALCIUM 20 MG TABLET PO SCH (20:16)
[2018-04-06] MEDS: DONEPEZIL HCL 10 MG TABLET PO SCH (20:16)
[2018-04-06] MEDS: PATCH REMOVAL. MC SCH (20:16)
--- NOTE | 2018-04-06 20:36 | PN ---
DATE: 04/03/2018 PSYCHIATRIC PROGRESS NOTE This late entry 04/03/2018 covers elements not covered in my initial note. SUBJECTIVE: I met with the patient in the evening and staffed at a treatment team meeting with the entire team and the patient's [id number], Lata attended. Lata talked about the patient's agitation, aggression, mood lability and that she had been stealing while at home with her son and Lata. The patient does not agree with Lata's perception of her paranoia. The patient denies being previously diagnosed with bipolar disorder and we will obtain records to confirm or refute this. She has been getting agitated with caregivers. REVIEW OF SYSTEMS: Ambulation impaired, in wheelchair. No CV, , GI, eye system symptoms on review. She is on oxygen supplements. MENTAL STATUS EXAM: Reasonably oriented. Speech is coherent, has some latency, is somewhat pressured at times. Abstraction fair, computation impaired, language function intact. Attention span short. IMPRESSION: Major neurocognitive disorder, Alzheimer, vascular with delusion, depression, major depressive disorder, history of bipolar 1 disorder. Rest unchanged. PLAN: Obtain any past psychiatric records to confirm or refute the bipolar diagnosis. Continue current psychotropics. Adjust further as clinically indicated. Lata did attend the lengthy treatment team meeting, shared her history of the patient's long history of bipolar disorder, which the patient is in degree with. MAN Rk ROY MD DR: HERMELINDA/alexandra JOB#: [id number] / [id number]
--- NOTE | 2018-04-06 22:47 | PDOC ---
Exam Note: Akshat Note: Please also refer to the separate dictated note~for this date of service dictated separately.~Patient seen individually. Discussed the patient with Nursing staff reviewed the chart.~Reviewed interim history and current functioning. Reviewed vital signs,~Labs/ Radiology~and current medications noted below. Continue current treatment with the changes noted in the dictated addendum note Assessment: Vital Signs: Vital Signs Date Time Temp Pulse Resp B/P (MAP) Pulse Ox O2 Delivery O2 Flow Rate FiO2 04/06/18 22:14 20 Nasal Cannula 2.0 04/06/18 20:20 98 04/06/18 16:51 98.3 69 110/65 (80) I&O Intake and Output 04/06/18 07:01 Intake Total 1280 ml Balance 1280 ml Intake Oral 1280 ml Current Medications: Meds: Current Medications Multi-Ingredient Ointment (Analgesic [place]) 1 attila PRN QID PRN TP MUSCLE PAIN; Start 03/27/18 at 18:45 Al Hydroxide/Mg Hydroxide (Mylanta Plus Xs) 15 ml PRN AFTMEALHC PRN PO DYSPEPSIA; Start 03/27/18 at 18:45 Magnesium Hydroxide (Milk Of Magnesia) 2,400 mg PRN QHS PRN PO CONSTIPATION; Start 03/27/18 at 18:45 Aspirin (Aspirin Enteric Coated) 325 mg DAILY PO Last administered on at 07:44; Start 03/28/18 at 09:00 Atorvastatin Calcium (Lipitor) 20 mg QHS PO Last administered on 04/06/18at 20: 16; Start 03/27/18 at 21:00 Estrogens Conjugated (Premarin) 0.5 attila PRN DAILY PRN VG vaginal dryness; Start 03/27/18 at 19:15 Acetaminophen/ Hydrocodone Bitart (Lortab 5/325) 1 tab PRN Q12HR PRN PO PAIN Last administered on 03/30/18at 09:06; Start 03/27/18 at 19:15; Stop 03/30/18 at 15:02; Status DC Ipratropium [place] (Atrovent) 0.2 mg PRN Q6HRS PRN IH SHORTNESS OF BREATH; Start 03/27/18 at 19:15 Levothyroxine Sodium (Synthroid) 75 mcg DAILYAC PO Last administered on at 08:40; Start 03/28/18 at 07:30; Stop 03/28/18 at 12:26; Status DC Lisinopril (Prinivil) 10 mg DAILY PO Last administered on 04/06/18at 07:45; Start 03/28/18 at 09:00 Acetaminophen (Tylenol) 650 mg PRN Q6HRS PRN PO PAIN / TEMP Last administered on 04/03/18at 20:03; Start 03/27/18 at 19:45 Non-Formulary Medication (Albuterol Sulfate (Albuterol Sulfate Conc Neb Soln)) 2.5 mg PRN Q6HRS PRN NEB SHORTNESS OF BREATH; Start 03/27/18 at 19:15; Status UNV Amlodipine Besylate (Norvasc) 10 mg DAILY PO Last administered on 03/31/18at 08 :38; Start 03/28/18 at 09:00; Stop 03/31/18 at 12:27; Status DC Non-Formulary Medication (Budesonide/ Formoterol Fumarate (Symbicort 160-4.5 Mcg Inhaler)) 2 puff BID IH ; Start 03/27/18 at 21:00; Status UNV Carvedilol (Coreg) 6.25 mg BIDWMEALS PO Last administered on 04/06/18at 16:40; Start 03/27/18 at 20:00 Divalproex Sodium (Depakote Er) 750 mg QHS PO Last administered on 03/27/18at 20:53; Start 03/27/18 at 21:00; Stop 03/28/18 at 21:13; Status DC Docusate Sodium (Colace) 100 mg PRN DAILY PRN PO HARD STOOLS; Start 03/27/18 at 19:45 Donepezil HCl (Aricept) 10 mg QHS PO Last administered on 04/06/18at 20:16; Start 03/27/18 at 21:00 Enoxaparin Sodium (Lovenox 40mg Syringe) 40 mg DAILY SQ Last administered on at 07:45; Start 03/28/18 at 09:00 Hydralazine HCl (Apresoline) 10 mg TID PO Last administered on 03/31/18at 08:39 ; Start 03/27/18 at 21:00; Stop 03/31/18 at 12:27; Status DC Multivitamins/ Calcium (Thera-M Plus) 1 tab DAILY PO Last administered on 04/06 07:44; Start 03/28/18 at 09:00 Olanzapine (ZyPREXA) 5 mg PRN DAILY PRN PO ANXIETY/AGITATION Last administered on 03/29/18at 10:50; Start 03/28/18 at 09:00 Pantoprazole Sodium (Protonix) 40 mg DAILYAC PO Last administered on at 07:44; Start 03/28/18 at 07:30 Phenazopyridine HCl (Pyridium) 100 mg PRN TID PRN PO URINARY PAIN; Start 03/27 at 19:45 Polyethylene Glycol (miraLAX) 17 gm PRN BID PRN PO CONSTIPATION; Start at 09:00 Sodium Chloride (Saline Mist Nasal) 1 attila QID NS ; Start 03/27/18 at 21:00; Status Cancel Trazodone HCl (Desyrel) 25 mg PRN BID PRN PO ANXIETY/AGITATION; Start at 19:45 Trazodone HCl (Desyrel) 50 mg PRN QHS PRN PO INSOMNIA; Start 03/27/18 at 19:45 Lidocaine (Lidoderm) 1 patch DAILY TD Last administered on 04/06/18at 07:46; Start 03/28/18 at 09:00 Multivitamins/ Minerals (I-Angelo) 1 tab DAILY PO Last administered on at 07:43; Start 03/28/18 at 09:00 Miscellaneous (Lidoderm Patch Removal) 1 ea QHS MC Last administered on at 20:16; Start 03/27/18 at 21:00 Albuterol Sulfate (Ventolin) 2.5 mg PRN Q6HRS PRN NEB SHORTNESS OF BREATH; Start 03/27/18 at 19:45 Albuterol Sulfate (Ventolin) 2.5 mg RTQID NEB Last administered on 04/06/18at 20:20; Start 03/27/18 at 20:00 Budesonide (Pulmicort) 0.5 mg RTBID NEB Last administered on 04/06/18 20:20; Start 03/27/18 at 20:00 Sodium Chloride ([place] Saline Nasal) 2 attila QID NS ; Start 03/27/18 at 21:00; Stop 03/28/18 at 13:08; Status DC Levothyroxine Sodium (Synthroid) 75 mcg DAILY06 PO Last administered on at 05:04; Start 03/29/18 at 06:00 Sodium Chloride (Saline Mist Nasal) 1 attila PRN QID PRN NS NASAL CONGESTION; Start 03/28/18 at 13:15 Divalproex Sodium (Depakote Sprinkles) 750 mg HS PO Last administered on at 20:20; Start 03/28/18 at 21:30; Stop 03/30/18 at 14:27; Status DC Sertraline HCl (Zoloft) 25 mg DAILY PO Last administered on 03/31/18at 08:39; Start 03/29/18 at 09:00; Stop 03/31/18 at 09:01; Status DC Sertraline HCl (Zoloft) 50 mg DAILY PO Last administered on 04/06/18at 07:44; Start 04/01/18 at 09:00 Divalproex Sodium (Depakote Sprinkles) 500 mg BID94 PO Last administered on at 07:55; Start 03/30/18 at 09:00; Stop 03/30/18 at 14:27; Status DC Quetiapine Fumarate (SEROquel) 12.5 mg 1300 PO Last administered on 04/06/18at 13:26; Start 03/30/18 at 13:00 Divalproex Sodium (Depakote Sprinkles) 500 mg BID PO Last administered on 04/01at 09:59; Start 03/30/18 at 21:00; Stop 04/01/18 at 17:43; Status DC Acetaminophen/ Hydrocodone Bitart (Lortab 5/325) 1 tab PRN Q6HRS PRN PO PAIN Last administered on 04/06/18at 20:43; Start 03/30/18 at 15:15 Olanzapine (ZyPREXA ZYDIS) 2.5 mg PRN Q2HR PRN PO PSYCHOSIS; Start 03/30/18 at 19:15 Divalproex Sodium (Depakote Sprinkles) 625 mg BID PO Last administered on 04/06at 20:16; Start 04/01/18 at 21:00 Active Scripts Active Reported [occuvite] 1 Tab PO DAILY Pyridium (Phenazopyridine Hcl) 100 Mg Tablet 100 Mg PO PRN TID PRN Trazodone Hcl 50 Mg Tablet 25 Mg PO PRN QHS PRN Premarin (Estrogens, Conjugated) 30 Gm Cream.appl 0.5 Gm VG PRN DAILY PRN Multivitamins (Multivitamin) 1 Each Tablet 1 Tab PO DAILY Trazodone Hcl 50 Mg Tablet 25 Mg PO BID PRN [place] Saline (Sodium Chloride) 50 Ml Drops 2 Drop NS QID Miralax (Polyethylene Glycol 3350) 17 Gm Powd.pack 17 Gm PO PRN BID PRN Protonix (Pantoprazole Sodium) 40 Mg Tablet.dr 40 Mg PO DAILY Zyprexa (Olanzapine) 5 Mg Tablet 5 Mg PO PRN DAILY PRN Lisinopril 10 Mg Tablet 10 Mg PO DAILY [lidoderm] 1 Patch TD DAILY Levothyroxine Sodium 75 Mcg Tablet 75 Mcg PO DAILYAC Ipratropium [place] 0.2 Mg/1 Ml Solution 0.2 Mg IH PRN Q6HRS PRN Hydrocodone-Apap 5-325 (Hydrocodone Bit/Acetaminophen) 1 Each Tablet 1 Tab PO PRN Q12HR PRN Hydralazine Hcl 10 Mg Tablet 10 Mg PO TID Lovenox (Enoxaparin Sodium) 40 Mg/0.4 Ml Disp.syrin 40 Mg SQ DAILY Donepezil Hcl 10 Mg Tablet 10 Mg PO HS Colace (Docusate Sodium) 100 Mg Capsule 100 Mg PO PRN DAILY PRN Depakote Er (Divalproex Sodium) 500 Mg Tab.er.24h 750 Mg PO HS Coreg (Carvedilol) 6.25 Mg Tablet 6.25 Mg PO BIDWMEALS Symbicort 160-4.5 Mcg Inhaler (Budesonide/Formoterol Fumarate) 10.2 Gm Hfa.aer.ad 2 Puff IH BID Lipitor (Atorvastatin Calcium) 20 Mg Tablet 20 Mg PO QHS Aspirin Ec (Aspirin) 325 Mg Tablet.dr 325 Mg PO DAILY Amlodipine Besylate 10 Mg Tablet 10 Mg PO DAILY Albuterol Sulfate Conc Neb Soln (Albuterol Sulfate) 2.5 Mg/0.5 Ml Vial.neb 2.5 Mg NEB PRN Q6HRS PRN Acetaminophen 650 Mg/20.3 Ml Solution 650 Mg PO PRN Q6HRS PRN I have reviewed the current psychotropics carefully including drug interactions. Risk benefit ratio favors no change other than as noted in my dictated progress note. Diagnosis: Problems: (1) Anxiety disorder (2) Major depressive disorder, recurrent episode (3) Psychosis, atypical (4) Impulse control disorder GWEN ROY MD Apr 06, 2018 22:47
--- NOTE | 2018-04-07 00:22 | PN ---
DATE: 04/05/2018 This late entry, 04/05/2018, covers elements not covered in my initial note. SUBJECTIVE: I met with the patient in the evening. The patient slept 5-1/4 hours previous night. She has been fairly appropriate on the unit, still angry at her [id number] and believes her son is trying to take her money and I processed this with her. She denies any past diagnosis of bipolar disorder as the family have alluded to. REVIEW OF SYSTEMS: Shortness of breath, on O2 supplements, impaired ambulation, in wheelchair. No CV, , pulmonary, eye system symptoms on review other than above. MENTAL STATUS EXAM: Reasonably oriented. Speech is coherent, a little pressured at times. Abstraction fair, computation impaired, language function intact. Mood and affect showing improvement. LABORATORY DATA: Reviewed. IMPRESSION: Unchanged from initial note. PLAN: No change from initial note. GWEN ROY MD DR: HERMELINDA/alexandra JOB#: [id number] / [id number]
--- NOTE | 2018-04-07 02:30 | PN ---
DATE: 04/04/2018 This is a late entry of 04/04/2018 covers elements not covered in my initial note. SUBJECTIVE: I met with the patient in the evening. The patient slept 6-1/4 hours previous night. The patient has been cooperative. Valproic acid level is 54, therapeutic. We are awaiting past records regarding bipolar disorder with the patient denying she was ever diagnosed with bipolar and states her [id number] Lata is "a liar." REVIEW OF SYSTEMS: Ambulation impaired, in wheelchair, some shortness of breath, on O2 supplements. No CV, , eye, ENT system symptoms on review. MENTAL STATUS EXAM: Oriented to herself and situation. Speech is coherent, abstraction fair, computation impaired, language function intact. Mood and affect showing improvement. LABORATORY DATA: Reviewed. IMPRESSION: Unchanged from initial note. PLAN: No change from initial note. MAN Rk ROY MD DR: HERMELINDA/alexandra JOB#: [id number] / [id number]
[2018-04-07] MEDS: LEVOTHYROXINE 75 MCG TABLET PO SCH (04:38)
[2018-04-07] MEDS: ALBUTEROL SULFATE 2.5 MG/3 ML NEBU. NEB SCH ×4 (05:06→20:48)
[2018-04-07 06:05] VITALS: BP 167/82
[2018-04-07] MEDS: LIDOCAINE (700MG/PATCH) PATCH. TD SCH (07:51)
[2018-04-07] MEDS: ENOXAPARIN 40 MG/0.4 ML SYRINGE. SQ SCH (07:52)
[2018-04-07] MEDS: DIVALPROEX 125 MG CAP.SPRINK PO SCH ×2 (07:52→20:11)
[2018-04-07] MEDS: PANTOPRAZOLE 40 MG TABLET. PO SCH (07:53)
[2018-04-07] MEDS: MULTIVITAMIN I-VITE TABLET. PO SCH (07:53)
[2018-04-07] MEDS: LISINOPRIL 10 MG TABLET PO SCH (07:53)
[2018-04-07] MEDS: MULTIVITAMIN with MINERAL TABLET. PO SCH (07:53)
[2018-04-07] MEDS: SERTRALINE 25 MG TABLET. PO SCH (07:53)
[2018-04-07] MEDS: ASPIRIN ENTERIC COATED 325 MG TABLET.DR. PO SCH (07:53)
[2018-04-07] MEDS: CARVEDILOL 6.25 MG TABLET PO SCH ×2 (07:54→16:35)
[2018-04-07] MEDS: BUDESONIDE 0.5 MG/2 ML NEBU NEB SCH ×2 (09:26→20:48)
[2018-04-07] MEDS: QUEtiapine 25 MG TABLET. PO SCH (13:14)
[2018-04-07] MEDS: HYDROcodone/APAP 5/325MG 1 TAB TABLET PO PRN (13:14)
[2018-04-07 16:30] VITALS: BP 117/67
[2018-04-07] MEDS: ACETAMINOPHEN 325 MG TABLET PO PRN (16:35)
[2018-04-07] MEDS: DONEPEZIL HCL 10 MG TABLET PO SCH (20:12)
[2018-04-07] MEDS: ATORVASTATIN CALCIUM 20 MG TABLET PO SCH (20:12)
[2018-04-07] MEDS: PATCH REMOVAL. MC SCH (20:12)
--- NOTE | 2018-04-07 22:57 | PDOC ---
Exam Note: Akshat Note: Please also refer to the separate dictated note~for this date of service dictated separately.~Patient seen individually. Discussed the patient with Nursing staff reviewed the chart.~Reviewed interim history and current functioning. Reviewed vital signs,~Labs/ Radiology~and current medications noted below. Continue current treatment with the changes noted in the dictated addendum note Assessment: Vital Signs: Vital Signs Date Time Temp Pulse Resp B/P (MAP) Pulse Ox O2 Delivery O2 Flow Rate FiO2 04/07/18 20:50 98 Nasal Cannula 2.0 04/07/18 16:35 84 117/67 04/07/18 16:30 97.4 19 I&O Intake and Output 04/07/18 07:01 Intake Total 960 ml Balance 960 ml Intake Oral 960 ml Current Medications: Meds: Current Medications Multi-Ingredient Ointment (Analgesic [place]) 1 attila PRN QID PRN TP MUSCLE PAIN; Start 03/27/18 at 18:45 Al Hydroxide/Mg Hydroxide (Mylanta Plus Xs) 15 ml PRN AFTMEALHC PRN PO DYSPEPSIA; Start 03/27/18 at 18:45 Magnesium Hydroxide (Milk Of Magnesia) 2,400 mg PRN QHS PRN PO CONSTIPATION; Start 03/27/18 at 18:45 Aspirin (Aspirin Enteric Coated) 325 mg DAILY PO Last administered on 04/07/18at 07:53; Start 03/28/18 at 09:00 Atorvastatin Calcium (Lipitor) 20 mg QHS PO Last administered on 04/07/18at 20:12 ; Start 03/27/18 at 21:00 Estrogens Conjugated (Premarin) 0.5 attila PRN DAILY PRN VG vaginal dryness; Start 03/27/18 at 19:15 Acetaminophen/ Hydrocodone Bitart (Lortab 5/325) 1 tab PRN Q12HR PRN PO PAIN Last administered on 03/30/18at 09:06; Start 03/27/18 at 19:15; Stop 03/30/18 at 15:02; Status DC Ipratropium [place] (Atrovent) 0.2 mg PRN Q6HRS PRN IH SHORTNESS OF BREATH; Start 03/27/18 at 19:15 Levothyroxine Sodium (Synthroid) 75 mcg DAILYAC PO Last administered on at 08:40; Start 03/28/18 at 07:30; Stop 03/28/18 at 12:26; Status DC Lisinopril (Prinivil) 10 mg DAILY PO Last administered on 04/07/18 07:53; Start 03/28/18 at 09:00 Acetaminophen (Tylenol) 650 mg PRN Q6HRS PRN PO PAIN / TEMP Last administered on 04/07/18 16:35; Start 03/27/18 at 19:45 Non-Formulary Medication (Albuterol Sulfate (Albuterol Sulfate Conc Neb Soln)) 2.5 mg PRN Q6HRS PRN NEB SHORTNESS OF BREATH; Start 03/27/18 at 19:15; Status UNV Amlodipine Besylate (Norvasc) 10 mg DAILY PO Last administered on 03/31/18at 08 :38; Start 03/28/18 at 09:00; Stop 03/31/18 at 12:27; Status DC Non-Formulary Medication (Budesonide/ Formoterol Fumarate (Symbicort 160-4.5 Mcg Inhaler)) 2 puff BID IH ; Start 03/27/18 at 21:00; Status UNV Carvedilol (Coreg) 6.25 mg BIDWMEALS PO Last administered on 04/07/18 16:35; Start 03/27/18 at 20:00 Divalproex Sodium (Depakote Er) 750 mg QHS PO Last administered on 03/27/18at 20:53; Start 03/27/18 at 21:00; Stop 03/28/18 at 21:13; Status DC Docusate Sodium (Colace) 100 mg PRN DAILY PRN PO HARD STOOLS; Start 03/27/18 at 19:45 Donepezil HCl (Aricept) 10 mg QHS PO Last administered on 04/07/18 20:12; Start 03/27/18 at 21:00 Enoxaparin Sodium (Lovenox 40mg Syringe) 40 mg DAILY SQ Last administered on 07:52; Start 03/28/18 at 09:00 Hydralazine HCl (Apresoline) 10 mg TID PO Last administered on 03/31/18at 08:39 ; Start 03/27/18 at 21:00; Stop 03/31/18 at 12:27; Status DC Multivitamins/ Calcium (Thera-M Plus) 1 tab DAILY PO Last administered on 07:53; Start 03/28/18 at 09:00 Olanzapine (ZyPREXA) 5 mg PRN DAILY PRN PO ANXIETY/AGITATION Last administered on 03/29/18at 10:50; Start 03/28/18 at 09:00 Pantoprazole Sodium (Protonix) 40 mg DAILYAC PO Last administered on 04/07/18 07:53; Start 03/28/18 at 07:30 Phenazopyridine HCl (Pyridium) 100 mg PRN TID PRN PO URINARY PAIN; Start 03/27 at 19:45 Polyethylene Glycol (miraLAX) 17 gm PRN BID PRN PO CONSTIPATION; Start at 09:00 Sodium Chloride (Saline Mist Nasal) 1 attila QID NS ; Start 03/27/18 at 21:00; Status Cancel Trazodone HCl (Desyrel) 25 mg PRN BID PRN PO ANXIETY/AGITATION; Start at 19:45 Trazodone HCl (Desyrel) 50 mg PRN QHS PRN PO INSOMNIA; Start 03/27/18 at 19:45 Lidocaine (Lidoderm) 1 patch DAILY TD Last administered on 04/07/18 07:51; Start 03/28/18 at 09:00 Multivitamins/ Minerals (I-Angelo) 1 tab DAILY PO Last administered on 04/07/18 07:53; Start 03/28/18 at 09:00 Miscellaneous (Lidoderm Patch Removal) 1 ea QHS MC Last administered on 20:12; Start 03/27/18 at 21:00 Albuterol Sulfate (Ventolin) 2.5 mg PRN Q6HRS PRN NEB SHORTNESS OF BREATH; Start 03/27/18 at 19:45 Albuterol Sulfate (Ventolin) 2.5 mg RTQID NEB Last administered on 04/07/18 20: 48; Start 03/27/18 at 20:00 Budesonide (Pulmicort) 0.5 mg RTBID NEB Last administered on 04/07/18 20:48; Start 03/27/18 at 20:00 Sodium Chloride ([place] Saline Nasal) 2 attila QID NS ; Start 03/27/18 at 21:00; Stop 03/28/18 at 13:08; Status DC Levothyroxine Sodium (Synthroid) 75 mcg DAILY06 PO Last administered on 04:38; Start 03/29/18 at 06:00 Sodium Chloride (Saline Mist Nasal) 1 attila PRN QID PRN NS NASAL CONGESTION; Start 03/28/18 at 13:15 Divalproex Sodium (Depakote Sprinkles) 750 mg HS PO Last administered on at 20:20; Start 03/28/18 at 21:30; Stop 03/30/18 at 14:27; Status DC Sertraline HCl (Zoloft) 25 mg DAILY PO Last administered on 03/31/18at 08:39; Start 03/29/18 at 09:00; Stop 03/31/18 at 09:01; Status DC Sertraline HCl (Zoloft) 50 mg DAILY PO Last administered on 04/07/18 07:53; Start 04/01/18 at 09:00 Divalproex Sodium (Depakote Sprinkles) 500 mg BID94 PO Last administered on at 07:55; Start 03/30/18 at 09:00; Stop 03/30/18 at 14:27; Status DC Quetiapine Fumarate (SEROquel) 12.5 mg 1300 PO Last administered on 04/07/18 13 :14; Start 03/30/18 at 13:00 Divalproex Sodium (Depakote Sprinkles) 500 mg BID PO Last administered on 04/01at 09:59; Start 03/30/18 at 21:00; Stop 04/01/18 at 17:43; Status DC Acetaminophen/ Hydrocodone Bitart (Lortab 5/325) 1 tab PRN Q6HRS PRN PO PAIN Last administered on 04/07/18 13:14; Start 03/30/18 at 15:15 Olanzapine (ZyPREXA ZYDIS) 2.5 mg PRN Q2HR PRN PO PSYCHOSIS; Start 03/30/18 at 19:15 Divalproex Sodium (Depakote Sprinkles) 625 mg BID PO Last administered on 20:11; Start 12/26/18 at 21:00 Active Scripts Active Reported [occuvite] 1 Tab PO DAILY Pyridium (Phenazopyridine Hcl) 100 Mg Tablet 100 Mg PO PRN TID PRN Trazodone Hcl 50 Mg Tablet 25 Mg PO PRN QHS PRN Premarin (Estrogens, Conjugated) 30 Gm Cream.appl 0.5 Gm VG PRN DAILY PRN Multivitamins (Multivitamin) 1 Each Tablet 1 Tab PO DAILY Trazodone Hcl 50 Mg Tablet 25 Mg PO BID PRN [place] Saline (Sodium Chloride) 50 Ml Drops 2 Drop NS QID Miralax (Polyethylene Glycol 3350) 17 Gm Powd.pack 17 Gm PO PRN BID PRN Protonix (Pantoprazole Sodium) 40 Mg Tablet.dr 40 Mg PO DAILY Zyprexa (Olanzapine) 5 Mg Tablet 5 Mg PO PRN DAILY PRN Lisinopril 10 Mg Tablet 10 Mg PO DAILY [lidoderm] 1 Patch TD DAILY Levothyroxine Sodium 75 Mcg Tablet 75 Mcg PO DAILYAC Ipratropium [place] 0.2 Mg/1 Ml Solution 0.2 Mg IH PRN Q6HRS PRN Hydrocodone-Apap 5-325 (Hydrocodone Bit/Acetaminophen) 1 Each Tablet 1 Tab PO PRN Q12HR PRN Hydralazine Hcl 10 Mg Tablet 10 Mg PO TID Lovenox (Enoxaparin Sodium) 40 Mg/0.4 Ml Disp.syrin 40 Mg SQ DAILY Donepezil Hcl 10 Mg Tablet 10 Mg PO HS Colace (Docusate Sodium) 100 Mg Capsule 100 Mg PO PRN DAILY PRN Depakote Er (Divalproex Sodium) 500 Mg Tab.er.24h 750 Mg PO HS Coreg (Carvedilol) 6.25 Mg Tablet 6.25 Mg PO BIDWMEALS Symbicort 160-4.5 Mcg Inhaler (Budesonide/Formoterol Fumarate) 10.2 Gm Hfa.aer.ad 2 Puff IH BID Lipitor (Atorvastatin Calcium) 20 Mg Tablet 20 Mg PO QHS Aspirin Ec (Aspirin) 325 Mg Tablet.dr 325 Mg PO DAILY Amlodipine Besylate 10 Mg Tablet 10 Mg PO DAILY Albuterol Sulfate Conc Neb Soln (Albuterol Sulfate) 2.5 Mg/0.5 Ml Vial.neb 2.5 Mg NEB PRN Q6HRS PRN Acetaminophen 650 Mg/20.3 Ml Solution 650 Mg PO PRN Q6HRS PRN I have reviewed the current psychotropics carefully including drug interactions. Risk benefit ratio favors no change other than as noted in my dictated progress note. Diagnosis: Problems: (1) Anxiety disorder (2) Major depressive disorder, recurrent episode (3) Psychosis, atypical (4) Impulse control disorder GWEN ROY MD Apr 07, 2018 22:57
--- NOTE | 2018-04-07 23:39 | PN ---
DATE: 04/06/2018 PSYCHIATRIC PROGRESS NOTE This late entry 04/06/2018 covers elements, not covered in my initial note. SUBJECTIVE: I met with the patient in the evening. The patient slept 10 hours previous night. She has had no behaviors, completely denies. She has been diagnosed with bipolar disorder in the past. Family had indicated she has a long history of bipolar disorder. We are trying to obtain those records, none available at this time. REVIEW OF SYSTEMS: Positive for shortness of breath, on oxygen supplements, in wheelchair. Impaired ambulation. No CV, , pulmonary, eye system symptoms on review other than above. MENTAL STATUS EXAM: Oriented to herself and situation. Speech is coherent, abstraction fair, computation impaired, language function intact. Mood and affect showing improvement, improved lability. Does have some short-term memory deficits. LABORATORY DATA: Reviewed. IMPRESSION: Major depressive disorder, rule out bipolar 1 disorder, unspecified; major neurocognitive disorder, early Alzheimer, vascular with depression. Rest unchanged. PLAN: No change from initial note. Valproic acid level therapeutic at 54. MAN Rk ROY MD DR: HERMELINDA/alexandra JOB#: [id number] / [id number]
[2018-04-08] MEDS: ALBUTEROL SULFATE 2.5 MG/3 ML NEBU. NEB SCH ×4 (05:18→20:12)
[2018-04-08 05:38] VITALS: BP 132/79
[2018-04-08] MEDS: LEVOTHYROXINE 75 MCG TABLET PO SCH (05:38)
[2018-04-08] MEDS: BUDESONIDE 0.5 MG/2 ML NEBU NEB SCH ×2 (08:00→20:12)
[2018-04-08] MEDS: MULTIVITAMIN I-VITE TABLET. PO SCH (08:26)
[2018-04-08] MEDS: ASPIRIN ENTERIC COATED 325 MG TABLET.DR. PO SCH (08:26)
[2018-04-08] MEDS: MULTIVITAMIN with MINERAL TABLET. PO SCH (08:26)
[2018-04-08] MEDS: SERTRALINE 25 MG TABLET. PO SCH (08:26)
[2018-04-08] MEDS: CARVEDILOL 6.25 MG TABLET PO SCH ×2 (08:27→16:40)
[2018-04-08] MEDS: PANTOPRAZOLE 40 MG TABLET. PO SCH (08:28)
[2018-04-08] MEDS: LISINOPRIL 10 MG TABLET PO SCH (08:28)
[2018-04-08] MEDS: ENOXAPARIN 40 MG/0.4 ML SYRINGE. SQ SCH (08:29)
[2018-04-08] MEDS: DIVALPROEX 125 MG CAP.SPRINK PO SCH ×2 (08:29→20:07)
[2018-04-08] MEDS: LIDOCAINE (700MG/PATCH) PATCH. TD SCH (08:30)
[2018-04-08] MEDS: HYDROcodone/APAP 5/325MG 1 TAB TABLET PO PRN (10:12)
[2018-04-08] MEDS: QUEtiapine 25 MG TABLET. PO SCH (13:42)
[2018-04-08 16:21] VITALS: BP 116/69
[2018-04-08] MEDS: DONEPEZIL HCL 10 MG TABLET PO SCH (20:07)
[2018-04-08] MEDS: ATORVASTATIN CALCIUM 20 MG TABLET PO SCH (20:07)
[2018-04-08] MEDS: PATCH REMOVAL. MC SCH (20:07)
--- NOTE | 2018-04-08 22:49 | PDOC ---
Exam Note: Akshat Note: Please also refer to the separate dictated note~for this date of service dictated separately.~Patient seen individually. Discussed the patient with Nursing staff reviewed the chart.~Reviewed interim history and current functioning. Reviewed vital signs,~Labs/ Radiology~and current medications noted below. Continue current treatment with the changes noted in the dictated addendum note Assessment: Vital Signs: Vital Signs Date Time Temp Pulse Resp B/P (MAP) Pulse Ox O2 Delivery O2 Flow Rate FiO2 04/08/18 20:20 98 Nasal Cannula 2.0 04/08/18 16:40 69 116/69 04/08/18 16:21 97.5 24 I&O Intake and Output 04/08/18 07:01 Intake Total 1080 ml Balance 1080 ml Intake Oral 1080 ml Current Medications: Meds: Current Medications Multi-Ingredient Ointment (Analgesic [place]) 1 attila PRN QID PRN TP MUSCLE PAIN; Start 03/27/18 at 18:45 Al Hydroxide/Mg Hydroxide (Mylanta Plus Xs) 15 ml PRN AFTMEALHC PRN PO DYSPEPSIA; Start 03/27/18 at 18:45 Magnesium Hydroxide (Milk Of Magnesia) 2,400 mg PRN QHS PRN PO CONSTIPATION; Start 03/27/18 at 18:45 Aspirin (Aspirin Enteric Coated) 325 mg DAILY PO Last administered on 04/08/18at 08:26; Start 03/28/18 at 09:00 Atorvastatin Calcium (Lipitor) 20 mg QHS PO Last administered on 04/08/18at 20:07 ; Start 03/27/18 at 21:00 Estrogens Conjugated (Premarin) 0.5 attila PRN DAILY PRN VG vaginal dryness; Start 03/27/18 at 19:15 Acetaminophen/ Hydrocodone Bitart (Lortab 5/325) 1 tab PRN Q12HR PRN PO PAIN Last administered on 03/30/18at 09:06; Start 03/27/18 at 19:15; Stop 03/30/18 at 15:02; Status DC Ipratropium [place] (Atrovent) 0.2 mg PRN Q6HRS PRN IH SHORTNESS OF BREATH; Start 03/27/18 at 19:15 Levothyroxine Sodium (Synthroid) 75 mcg DAILYAC PO Last administered on at 08:40; Start 03/28/18 at 07:30; Stop 03/28/18 at 12:26; Status DC Lisinopril (Prinivil) 10 mg DAILY PO Last administered on 04/08/18 08:28; Start 03/28/18 at 09:00 Acetaminophen (Tylenol) 650 mg PRN Q6HRS PRN PO PAIN / TEMP Last administered on 04/07/18 16:35; Start 03/27/18 at 19:45 Non-Formulary Medication (Albuterol Sulfate (Albuterol Sulfate Conc Neb Soln)) 2.5 mg PRN Q6HRS PRN NEB SHORTNESS OF BREATH; Start 03/27/18 at 19:15; Status UNV Amlodipine Besylate (Norvasc) 10 mg DAILY PO Last administered on 03/31/18at 08 :38; Start 03/28/18 at 09:00; Stop 03/31/18 at 12:27; Status DC Non-Formulary Medication (Budesonide/ Formoterol Fumarate (Symbicort 160-4.5 Mcg Inhaler)) 2 puff BID IH ; Start 03/27/18 at 21:00; Status UNV Carvedilol (Coreg) 6.25 mg BIDWMEALS PO Last administered on 04/08/18 16:40; Start 03/27/18 at 20:00 Divalproex Sodium (Depakote Er) 750 mg QHS PO Last administered on 03/27/18at 20:53; Start 03/27/18 at 21:00; Stop 03/28/18 at 21:13; Status DC Docusate Sodium (Colace) 100 mg PRN DAILY PRN PO HARD STOOLS; Start 03/27/18 at 19:45 Donepezil HCl (Aricept) 10 mg QHS PO Last administered on 04/08/18 20:07; Start 03/27/18 at 21:00 Enoxaparin Sodium (Lovenox 40mg Syringe) 40 mg DAILY SQ Last administered on 08:29; Start 03/28/18 at 09:00 Hydralazine HCl (Apresoline) 10 mg TID PO Last administered on 03/31/18at 08:39 ; Start 03/27/18 at 21:00; Stop 03/31/18 at 12:27; Status DC Multivitamins/ Calcium (Thera-M Plus) 1 tab DAILY PO Last administered on 08:26; Start 03/28/18 at 09:00 Olanzapine (ZyPREXA) 5 mg PRN DAILY PRN PO ANXIETY/AGITATION Last administered on 03/29/18at 10:50; Start 03/28/18 at 09:00 Pantoprazole Sodium (Protonix) 40 mg DAILYAC PO Last administered on 04/08/18 08:28; Start 03/28/18 at 07:30 Phenazopyridine HCl (Pyridium) 100 mg PRN TID PRN PO URINARY PAIN; Start 03/27 at 19:45 Polyethylene Glycol (miraLAX) 17 gm PRN BID PRN PO CONSTIPATION; Start at 09:00 Sodium Chloride (Saline Mist Nasal) 1 attila QID NS ; Start 03/27/18 at 21:00; Status Cancel Trazodone HCl (Desyrel) 25 mg PRN BID PRN PO ANXIETY/AGITATION; Start at 19:45 Trazodone HCl (Desyrel) 50 mg PRN QHS PRN PO INSOMNIA; Start 03/27/18 at 19:45 Lidocaine (Lidoderm) 1 patch DAILY TD Last administered on 04/08/18 08:30; Start 03/28/18 at 09:00 Multivitamins/ Minerals (I-Angelo) 1 tab DAILY PO Last administered on 04/08/18 08:26; Start 03/28/18 at 09:00 Miscellaneous (Lidoderm Patch Removal) 1 ea QHS MC Last administered on 20:07; Start 03/27/18 at 21:00 Albuterol Sulfate (Ventolin) 2.5 mg PRN Q6HRS PRN NEB SHORTNESS OF BREATH; Start 03/27/18 at 19:45 Albuterol Sulfate (Ventolin) 2.5 mg RTQID NEB Last administered on 04/08/18 20: 12; Start 03/27/18 at 20:00 Budesonide (Pulmicort) 0.5 mg RTBID NEB Last administered on 04/08/18 20:12; Start 03/27/18 at 20:00 Sodium Chloride ([place] Saline Nasal) 2 attila QID NS ; Start 03/27/18 at 21:00; Stop 03/28/18 at 13:08; Status DC Levothyroxine Sodium (Synthroid) 75 mcg DAILY06 PO Last administered on 05:38; Start 03/29/18 at 06:00 Sodium Chloride (Saline Mist Nasal) 1 attila PRN QID PRN NS NASAL CONGESTION; Start 03/28/18 at 13:15 Divalproex Sodium (Depakote Sprinkles) 750 mg HS PO Last administered on at 20:20; Start 03/28/18 at 21:30; Stop 03/30/18 at 14:27; Status DC Sertraline HCl (Zoloft) 25 mg DAILY PO Last administered on 03/31/18at 08:39; Start 03/29/18 at 09:00; Stop 03/31/18 at 09:01; Status DC Sertraline HCl (Zoloft) 50 mg DAILY PO Last administered on 04/08/18 08:26; Start 04/01/18 at 09:00 Divalproex Sodium (Depakote Sprinkles) 500 mg BID94 PO Last administered on at 07:55; Start 03/30/18 at 09:00; Stop 03/30/18 at 14:27; Status DC Quetiapine Fumarate (SEROquel) 12.5 mg 1300 PO Last administered on 04/08/18 13 :42; Start 03/30/18 at 13:00 Divalproex Sodium (Depakote Sprinkles) 500 mg BID PO Last administered on 04/01at 09:59; Start 03/30/18 at 21:00; Stop 04/01/18 at 17:43; Status DC Acetaminophen/ Hydrocodone Bitart (Lortab 5/325) 1 tab PRN Q6HRS PRN PO PAIN Last administered on 04/08/18 10:12; Start 03/30/18 at 15:15 Olanzapine (ZyPREXA ZYDIS) 2.5 mg PRN Q2HR PRN PO PSYCHOSIS; Start 03/30/18 at 19:15 Divalproex Sodium (Depakote Sprinkles) 625 mg BID PO Last administered on 20:07; Start 04/01/18 at 21:00 Active Scripts Active Reported [occuvite] 1 Tab PO DAILY Pyridium (Phenazopyridine Hcl) 100 Mg Tablet 100 Mg PO PRN TID PRN Trazodone Hcl 50 Mg Tablet 25 Mg PO PRN QHS PRN Premarin (Estrogens, Conjugated) 30 Gm Cream.appl 0.5 Gm VG PRN DAILY PRN Multivitamins (Multivitamin) 1 Each Tablet 1 Tab PO DAILY Trazodone Hcl 50 Mg Tablet 25 Mg PO BID PRN [place] Saline (Sodium Chloride) 50 Ml Drops 2 Drop NS QID Miralax (Polyethylene Glycol 3350) 17 Gm Powd.pack 17 Gm PO PRN BID PRN Protonix (Pantoprazole Sodium) 40 Mg Tablet.dr 40 Mg PO DAILY Zyprexa (Olanzapine) 5 Mg Tablet 5 Mg PO PRN DAILY PRN Lisinopril 10 Mg Tablet 10 Mg PO DAILY [lidoderm] 1 Patch TD DAILY Levothyroxine Sodium 75 Mcg Tablet 75 Mcg PO DAILYAC Ipratropium [place] 0.2 Mg/1 Ml Solution 0.2 Mg IH PRN Q6HRS PRN Hydrocodone-Apap 5-325 (Hydrocodone Bit/Acetaminophen) 1 Each Tablet 1 Tab PO PRN Q12HR PRN Hydralazine Hcl 10 Mg Tablet 10 Mg PO TID Lovenox (Enoxaparin Sodium) 40 Mg/0.4 Ml Disp.syrin 40 Mg SQ DAILY Donepezil Hcl 10 Mg Tablet 10 Mg PO HS Colace (Docusate Sodium) 100 Mg Capsule 100 Mg PO PRN DAILY PRN Depakote Er (Divalproex Sodium) 500 Mg Tab.er.24h 750 Mg PO HS Coreg (Carvedilol) 6.25 Mg Tablet 6.25 Mg PO BIDWMEALS Symbicort 160-4.5 Mcg Inhaler (Budesonide/Formoterol Fumarate) 10.2 Gm Hfa.aer.ad 2 Puff IH BID Lipitor (Atorvastatin Calcium) 20 Mg Tablet 20 Mg PO QHS Aspirin Ec (Aspirin) 325 Mg Tablet. 325 Mg PO DAILY Amlodipine Besylate 10 Mg Tablet 10 Mg PO DAILY Albuterol Sulfate Conc Neb Soln (Albuterol Sulfate) 2.5 Mg/0.5 Ml Vial.neb 2.5 Mg NEB PRN Q6HRS PRN Acetaminophen 650 Mg/20.3 Ml Solution 650 Mg PO PRN Q6HRS PRN I have reviewed the current psychotropics carefully including drug interactions. Risk benefit ratio favors no change other than as noted in my dictated progress note. Diagnosis: Problems: (1) Anxiety disorder (2) Major depressive disorder, recurrent episode (3) Psychosis, atypical (4) Impulse control disorder GWEN ROY MD Apr 08, 2018 22:48
--- NOTE | 2018-04-08 23:30 | PN ---
DATE: 04/07/2018 PSYCHIATRIC PROGRESS NOTE This late entry 04/07/2018 covers elements not covered in my initial note. SUBJECTIVE: I met with the patient in the evening at some length. She slept 7-1/4 hours previous night. She has been somewhat obsessed about getting her pain medications on time, but otherwise has been cooperative. REVIEW OF SYSTEMS: Ambulation impaired, in wheelchair, some shortness of breath on O2 supplements. No CV, , GI, eye system symptoms on review. MENTAL STATUS EXAM: Reasonably oriented. Speech is coherent, abstraction fair, computation impaired, language function intact. Mood and affect still somewhat depressed, anxious, but improved. No suicidal ideation. LABORATORY DATA: Reviewed. IMPRESSION: Major depressive disorder, recurrent, in partial remission; history of bipolar 1 disorder, unspecified, but we are waiting past psychiatric records to confirm this; cognitive disorder, unspecified. PLAN: No change from initial note. MAN Rk ROY MD DR: HERMELINDA/alexandra JOB#: [id number] / [id number]
[2018-04-09] MEDS: ALBUTEROL SULFATE 2.5 MG/3 ML NEBU. NEB SCH ×4 (05:22→21:12)
[2018-04-09 05:50] VITALS: BP 141/73
[2018-04-09] MEDS: HYDROcodone/APAP 5/325MG 1 TAB TABLET PO PRN ×2 (06:05→19:52)
[2018-04-09] MEDS: LEVOTHYROXINE 75 MCG TABLET PO SCH (06:05)
[2018-04-09] MEDS: ASPIRIN ENTERIC COATED 325 MG TABLET.DR. PO SCH (08:22)
[2018-04-09] MEDS: MULTIVITAMIN with MINERAL TABLET. PO SCH (08:23)
[2018-04-09] MEDS: LISINOPRIL 10 MG TABLET PO SCH (08:23)
[2018-04-09] MEDS: PANTOPRAZOLE 40 MG TABLET. PO SCH (08:23)
[2018-04-09] MEDS: SERTRALINE 25 MG TABLET. PO SCH (08:23)
[2018-04-09] MEDS: MULTIVITAMIN I-VITE TABLET. PO SCH (08:23)
[2018-04-09] MEDS: CARVEDILOL 6.25 MG TABLET PO SCH ×2 (08:24→16:47)
[2018-04-09] MEDS: ENOXAPARIN 40 MG/0.4 ML SYRINGE. SQ SCH (08:25)
[2018-04-09] MEDS: DIVALPROEX 125 MG CAP.SPRINK PO SCH ×2 (08:25→19:44)
[2018-04-09] MEDS: LIDOCAINE (700MG/PATCH) PATCH. TD SCH (08:26)
[2018-04-09] MEDS: ONDANSETRON ODT 4 MG TAB.RAPDIS PO PRN (08:30)
[2018-04-09] MEDS: BUDESONIDE 0.5 MG/2 ML NEBU NEB SCH ×2 (10:23→21:12)
[2018-04-09] MEDS: QUEtiapine 25 MG TABLET. PO SCH (14:02)
[2018-04-09 16:01] VITALS: BP 133/72
[2018-04-09] MEDS: ATORVASTATIN CALCIUM 20 MG TABLET PO SCH (19:44)
[2018-04-09] MEDS: DONEPEZIL HCL 10 MG TABLET PO SCH (19:44)
[2018-04-09] MEDS: PATCH REMOVAL. MC SCH (19:44)
--- NOTE | 2018-04-09 22:59 | PDOC ---
Exam Note: Akshat Note: Please also refer to the separate dictated note~for this date of service dictated separately.~Patient seen individually. Discussed the patient with Nursing staff reviewed the chart.~Reviewed interim history and current functioning. Reviewed vital signs,~Labs/ Radiology~and current medications noted below. Continue current treatment with the changes noted in the dictated addendum note Assessment: Vital Signs: Vital Signs Date Time Temp Pulse Resp B/P (MAP) Pulse Ox O2 Delivery O2 Flow Rate FiO2 04/09/18 21:20 94 04/09/18 21:15 Nasal Cannula 2.0 04/09/18 16:47 77 133/72 04/09/18 16:01 97.7 20 I&O Intake and Output 04/09/18 07:01 Intake Total 900 ml Balance 900 ml Intake Oral 900 ml # Bowel Movements 2 Current Medications: Meds: Current Medications Multi-Ingredient Ointment (Analgesic [place]) 1 attila PRN QID PRN TP MUSCLE PAIN; Start 03/27/18 at 18:45 Al Hydroxide/Mg Hydroxide (Mylanta Plus Xs) 15 ml PRN AFTMEALHC PRN PO DYSPEPSIA; Start 03/27/18 at 18:45 Magnesium Hydroxide (Milk Of Magnesia) 2,400 mg PRN QHS PRN PO CONSTIPATION; Start 03/27/18 at 18:45 Aspirin (Aspirin Enteric Coated) 325 mg DAILY PO Last administered on 04/09/18at 08:22; Start 03/28/18 at 09:00 Atorvastatin Calcium (Lipitor) 20 mg QHS PO Last administered on 04/09/18at 19:44 ; Start 03/27/18 at 21:00 Estrogens Conjugated (Premarin) 0.5 attila PRN DAILY PRN VG vaginal dryness; Start 03/27/18 at 19:15 Acetaminophen/ Hydrocodone Bitart (Lortab 5/325) 1 tab PRN Q12HR PRN PO PAIN Last administered on 03/30/18at 09:06; Start 03/27/18 at 19:15; Stop 03/30/18 at 15:02; Status DC Ipratropium [place] (Atrovent) 0.2 mg PRN Q6HRS PRN IH SHORTNESS OF BREATH; Start 03/27/18 at 19:15 Levothyroxine Sodium (Synthroid) 75 mcg DAILYAC PO Last administered on at 08:40; Start 03/28/18 at 07:30; Stop 03/28/18 at 12:26; Status DC Lisinopril (Prinivil) 10 mg DAILY PO Last administered on 04/09/18 08:23; Start 03/28/18 at 09:00 Acetaminophen (Tylenol) 650 mg PRN Q6HRS PRN PO PAIN / TEMP Last administered on 04/07/18 16:35; Start 03/27/18 at 19:45 Non-Formulary Medication (Albuterol Sulfate (Albuterol Sulfate Conc Neb Soln)) 2.5 mg PRN Q6HRS PRN NEB SHORTNESS OF BREATH; Start 03/27/18 at 19:15; Status UNV Amlodipine Besylate (Norvasc) 10 mg DAILY PO Last administered on 03/31/18at 08 :38; Start 03/28/18 at 09:00; Stop 03/31/18 at 12:27; Status DC Non-Formulary Medication (Budesonide/ Formoterol Fumarate (Symbicort 160-4.5 Mcg Inhaler)) 2 puff BID IH ; Start 03/27/18 at 21:00; Status UNV Carvedilol (Coreg) 6.25 mg BIDWMEALS PO Last administered on 04/09/18 16:47; Start 03/27/18 at 20:00 Divalproex Sodium (Depakote Er) 750 mg QHS PO Last administered on 03/27/18at 20:53; Start 03/27/18 at 21:00; Stop 03/28/18 at 21:13; Status DC Docusate Sodium (Colace) 100 mg PRN DAILY PRN PO HARD STOOLS; Start 03/27/18 at 19:45 Donepezil HCl (Aricept) 10 mg QHS PO Last administered on 04/09/18 19:44; Start 03/27/18 at 21:00 Enoxaparin Sodium (Lovenox 40mg Syringe) 40 mg DAILY SQ Last administered on 08:25; Start 03/28/18 at 09:00 Hydralazine HCl (Apresoline) 10 mg TID PO Last administered on 03/31/18at 08:39 ; Start 03/27/18 at 21:00; Stop 03/31/18 at 12:27; Status DC Multivitamins/ Calcium (Thera-M Plus) 1 tab DAILY PO Last administered on 08:23; Start 03/28/18 at 09:00 Olanzapine (ZyPREXA) 5 mg PRN DAILY PRN PO ANXIETY/AGITATION Last administered on 03/29/18at 10:50; Start 03/28/18 at 09:00 Pantoprazole Sodium (Protonix) 40 mg DAILYAC PO Last administered on 04/09/18 08:23; Start 03/28/18 at 07:30 Phenazopyridine HCl (Pyridium) 100 mg PRN TID PRN PO URINARY PAIN; Start 03/27 at 19:45 Polyethylene Glycol (miraLAX) 17 gm PRN BID PRN PO CONSTIPATION; Start at 09:00 Sodium Chloride (Saline Mist Nasal) 1 attila QID NS ; Start 03/27/18 at 21:00; Status Cancel Trazodone HCl (Desyrel) 25 mg PRN BID PRN PO ANXIETY/AGITATION; Start at 19:45 Trazodone HCl (Desyrel) 50 mg PRN QHS PRN PO INSOMNIA; Start 03/27/18 at 19:45 Lidocaine (Lidoderm) 1 patch DAILY TD Last administered on 04/09/18 08:26; Start 03/28/18 at 09:00 Multivitamins/ Minerals (I-Angelo) 1 tab DAILY PO Last administered on 04/09/18 08:23; Start 03/28/18 at 09:00 Miscellaneous (Lidoderm Patch Removal) 1 ea QHS MC Last administered on 19:44; Start 03/27/18 at 21:00 Albuterol Sulfate (Ventolin) 2.5 mg PRN Q6HRS PRN NEB SHORTNESS OF BREATH; Start 03/27/18 at 19:45 Albuterol Sulfate (Ventolin) 2.5 mg RTQID NEB Last administered on 04/09/18 21: 12; Start 03/27/18 at 20:00 Budesonide (Pulmicort) 0.5 mg RTBID NEB Last administered on 04/09/18 21:12; Start 03/27/18 at 20:00 Sodium Chloride ([place] Saline Nasal) 2 attila QID NS ; Start 03/27/18 at 21:00; Stop 03/28/18 at 13:08; Status DC Levothyroxine Sodium (Synthroid) 75 mcg DAILY06 PO Last administered on 06:05; Start 03/29/18 at 06:00 Sodium Chloride (Saline Mist Nasal) 1 attila PRN QID PRN NS NASAL CONGESTION; Start 03/28/18 at 13:15 Divalproex Sodium (Depakote Sprinkles) 750 mg HS PO Last administered on at 20:20; Start 03/28/18 at 21:30; Stop 03/30/18 at 14:27; Status DC Sertraline HCl (Zoloft) 25 mg DAILY PO Last administered on 03/31/18at 08:39; Start 03/29/18 at 09:00; Stop 03/31/18 at 09:01; Status DC Sertraline HCl (Zoloft) 50 mg DAILY PO Last administered on 04/09/18 08:23; Start 04/01/18 at 09:00 Divalproex Sodium (Depakote Sprinkles) 500 mg BID94 PO Last administered on at 07:55; Start 03/30/18 at 09:00; Stop 03/30/18 at 14:27; Status DC Quetiapine Fumarate (SEROquel) 12.5 mg 1300 PO Last administered on 04/09/18 14 :02; Start 03/30/18 at 13:00 Divalproex Sodium (Depakote Sprinkles) 500 mg BID PO Last administered on 04/01at 09:59; Start 03/30/18 at 21:00; Stop 04/01/18 at 17:43; Status DC Acetaminophen/ Hydrocodone Bitart (Lortab 5/325) 1 tab PRN Q6HRS PRN PO PAIN Last administered on 04/09/18 19:52; Start 03/30/18 at 15:15 Olanzapine (ZyPREXA ZYDIS) 2.5 mg PRN Q2HR PRN PO PSYCHOSIS; Start 03/30/18 at 19:15 Divalproex Sodium (Depakote Sprinkles) 625 mg BID PO Last administered on 19:44; Start 04/01/18 at 21:00 Ondansetron HCl (Zofran Odt) 4 mg PRN Q8HRS PRN PO NAUSEA/VOMITING Last administered on 04/09/18at 08:30; Start 04/09/18 at 08:30 Active Scripts Active Reported [occuvite] 1 Tab PO DAILY Pyridium (Phenazopyridine Hcl) 100 Mg Tablet 100 Mg PO PRN TID PRN Trazodone Hcl 50 Mg Tablet 25 Mg PO PRN QHS PRN Premarin (Estrogens, Conjugated) 30 Gm Cream.appl 0.5 Gm VG PRN DAILY PRN Multivitamins (Multivitamin) 1 Each Tablet 1 Tab PO DAILY Trazodone Hcl 50 Mg Tablet 25 Mg PO BID PRN [place] Saline (Sodium Chloride) 50 Ml Drops 2 Drop NS QID Miralax (Polyethylene Glycol 3350) 17 Gm Powd.pack 17 Gm PO PRN BID PRN Protonix (Pantoprazole Sodium) 40 Mg Tablet. 40 Mg PO DAILY Zyprexa (Olanzapine) 5 Mg Tablet 5 Mg PO PRN DAILY PRN Lisinopril 10 Mg Tablet 10 Mg PO DAILY [lidoderm] 1 Patch TD DAILY Levothyroxine Sodium 75 Mcg Tablet 75 Mcg PO DAILYAC Ipratropium [place] 0.2 Mg/1 Ml Solution 0.2 Mg IH PRN Q6HRS PRN Hydrocodone-Apap 5-325 (Hydrocodone Bit/Acetaminophen) 1 Each Tablet 1 Tab PO PRN Q12HR PRN Hydralazine Hcl 10 Mg Tablet 10 Mg PO TID Lovenox (Enoxaparin Sodium) 40 Mg/0.4 Ml Disp.syrin 40 Mg SQ DAILY Donepezil Hcl 10 Mg Tablet 10 Mg PO HS Colace (Docusate Sodium) 100 Mg Capsule 100 Mg PO PRN DAILY PRN Depakote Er (Divalproex Sodium) 500 Mg Tab.er.24h 750 Mg PO HS Coreg (Carvedilol) 6.25 Mg Tablet 6.25 Mg PO BIDWMEALS Symbicort 160-4.5 Mcg Inhaler (Budesonide/Formoterol Fumarate) 10.2 Gm Hfa.aer.ad 2 Puff IH BID Lipitor (Atorvastatin Calcium) 20 Mg Tablet 20 Mg PO QHS Aspirin Ec (Aspirin) 325 Mg Tablet. 325 Mg PO DAILY Amlodipine Besylate 10 Mg Tablet 10 Mg PO DAILY Albuterol Sulfate Conc Neb Soln (Albuterol Sulfate) 2.5 Mg/0.5 Ml Vial.neb 2.5 Mg NEB PRN Q6HRS PRN Acetaminophen 650 Mg/20.3 Ml Solution 650 Mg PO PRN Q6HRS PRN I have reviewed the current psychotropics carefully including drug interactions. Risk benefit ratio favors no change other than as noted in my dictated progress note. Diagnosis: Problems: (1) Anxiety disorder (2) Major depressive disorder, recurrent episode (3) Psychosis, atypical (4) Impulse control disorder GWEN ROY MD Apr 09, 2018 22:59
[2018-04-10 05:39] VITALS: BP 128/62
[2018-04-10] MEDS: LEVOTHYROXINE 75 MCG TABLET PO SCH (06:01)
[2018-04-10] MEDS: ACETAMINOPHEN 325 MG TABLET PO PRN (06:01)
[2018-04-10] MEDS: ALBUTEROL SULFATE 2.5 MG/3 ML NEBU. NEB SCH ×4 (06:07→20:27)
[2018-04-10 07:05] LABS: BASO % 1 % (0-3); EOS # 0.1 x10^3/uL (0.0-0.7); EOS % 3 % (0-3); HEMATOCRIT 36.3 % (36.0-47.0); LYMPH # 0.6 x10^3/uL (1.0-4.8); LYMPH % 12 % (24-48); MEAN CORPUSCULAR HEMOGLOBIN 31 pg (25-35); MEAN CORPUSCULAR HGB CONC 33 g/dL (31-37); MEAN CORPUSCULAR VOLUME 93 fL (79-100); MONO # 0.7 x10^3/uL (0.0-1.1); MONO % 15 % (0-9); NEUT # 3.5 x10^3uL (1.8-7.7); NEUT % 70 % (31-73); PLATELET COUNT 142 x10^3/uL (140-400); RED CELL DISTRIBUTION WIDTH 15.1 % (11.5-14.5); WHITE BLOOD COUNT 5.1 x10^3/uL (4.0-11.0)
[2018-04-10 07:16] LABS: ALBUMIN 2.3 g/dL (3.4-5.0); ALBUMIN/GLOBULIN RATIO 0.7 (1.0-1.7); CALCIUM 8.2 mg/dL (8.5-10.1); CREATININE 0.7 mg/dL (0.6-1.0); GFR 79.2; POTASSIUM 4.2 mmol/L (3.5-5.1); TOTAL BILIRUBIN 0.4 mg/dL (0.2-1.0); TOTAL PROTEIN 5.5 g/dL (6.4-8.2)
[2018-04-10] MEDS: PANTOPRAZOLE 40 MG TABLET. PO SCH (07:52)
[2018-04-10] MEDS: ASPIRIN ENTERIC COATED 325 MG TABLET.DR. PO SCH (07:53)
[2018-04-10] MEDS: CARVEDILOL 6.25 MG TABLET PO SCH ×2 (07:53→17:17)
[2018-04-10] MEDS: DIVALPROEX 125 MG CAP.SPRINK PO SCH ×2 (07:53→19:44)
[2018-04-10] MEDS: MULTIVITAMIN with MINERAL TABLET. PO SCH (07:54)
[2018-04-10] MEDS: SERTRALINE 25 MG TABLET. PO SCH (07:55)
[2018-04-10] MEDS: ENOXAPARIN 40 MG/0.4 ML SYRINGE. SQ SCH (07:55)
[2018-04-10] MEDS: LIDOCAINE (700MG/PATCH) PATCH. TD SCH (07:56)
[2018-04-10] MEDS: LISINOPRIL 10 MG TABLET PO SCH (07:57)
[2018-04-10] MEDS: MULTIVITAMIN I-VITE TABLET. PO SCH (07:57)
[2018-04-10] MEDS: HYDROcodone/APAP 5/325MG 1 TAB TABLET PO PRN ×2 (08:09→19:52)
[2018-04-10] MEDS: BUDESONIDE 0.5 MG/2 ML NEBU NEB SCH ×2 (09:42→20:27)
[2018-04-10] MEDS: QUEtiapine 25 MG TABLET. PO SCH (12:12)
--- NOTE | 2018-04-10 16:30 | PN ---
DATE: 04/08/2018 PSYCHIATRIC PROGRESS NOTE This is a late entry 04/08/2018, covers elements not covered in my initial note. SUBJECTIVE: I met with the patient at length in her room in the evening of 04/08/2018. The patient slept 5-3/4 hours previous evening. She is complaining of some back pain, received hydrocodone , had some shortness of breath, on O2 supplements, impaired ambulation, in wheelchair, otherwise pleasant. Spends much time in bed other than when she is in the day room. REVIEW OF SYSTEMS: No CV, , GI, ENT system symptoms on review other than above. MENTAL STATUS EXAM: Oriented to herself and situation. Speech is coherent, abstraction fair, computation impaired, language function intact, attention span short. Mood and affect still somewhat anxious. I questioned her closely on prior symptoms of bipolar disorder. There are no records we can obtain. 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 LABORATORY DATA: Reviewed. IMPRESSION: Major neurocognitive disorder, early Alzheimer, vascular with depression; anxiety disorder, unspecified, possible bipolar 1 disorder, mixed. Rest unchanged. PLAN: Continue psychotropics from initial note and adjust Depakote further, but currently level is therapeutic at 54. MAN Rk ROY MD DR: HERMELINDA/alexandra JOB#: [id number] / [id number]
[2018-04-10 16:53] VITALS: BP 136/79
--- NOTE | 2018-04-10 18:29 | PN ---
DATE: 04/09/2018 PSYCHIATRIC PROGRESS NOTE This late entry 04/09/2018 covers elements not covered in my initial note. SUBJECTIVE: I met with the patient in the evening and staffed at a treatment team meeting with the entire team in the morning. The patient slept 8-3/4 hours previous evening. At the treatment team meeting, Lata, patient's [id number], attended. Lata still believes patient has a long history of bipolar disorder. We are unable to obtain any past records of outpatient psychiatric treatment. The patient denies being diagnosed with bipolar; however, we will continue to explore this. Reportedly, 2 years ago, she was trying to drive, was quite confused, was found in the parking lot at [facility]. Police had to be called to help her home. REVIEW OF SYSTEMS: Shortness of breath on O2 supplements. I met with her at length in the evening. Ambulation impaired, in wheelchair. No CV, GI, , eye system symptoms on review. MENTAL STATUS EXAM: Oriented to herself and situation. Speech is coherent at times, somewhat pressured. Abstraction fair, computation impaired, language function intact, attention span short. Mood and affect despite the above is showing some improvement. LABORATORY DATA: Reviewed. IMPRESSION: Major neurocognitive disorder, early Alzheimer, vascular with depression, delusions, history of bipolar 1 disorder, unspecified; anxiety disorder, unspecified. Rest unchanged. PLAN: No change from initial note. Adjust further as clinically indicated. MAN Rk ROY MD DR: HERMELINDA/alexandra JOB#: [id number] / [id number]
[2018-04-10] MEDS: PATCH REMOVAL. MC SCH (19:43)
[2018-04-10] MEDS: DONEPEZIL HCL 10 MG TABLET PO SCH (19:44)
[2018-04-10] MEDS: ATORVASTATIN CALCIUM 20 MG TABLET PO SCH (19:44)
--- NOTE | 2018-04-10 22:42 | PDOC ---
Exam Note: Akshat Note: Please also refer to the separate dictated note~for this date of service dictated separately.~Patient seen individually. Discussed the patient with Nursing staff reviewed the chart.~Reviewed interim history and current functioning. Reviewed vital signs,~Labs/ Radiology~and current medications noted below. Continue current treatment with the changes noted in the dictated addendum note Assessment: Vital Signs: Vital Signs Date Time Temp Pulse Resp B/P (MAP) Pulse Ox O2 Delivery O2 Flow Rate FiO2 04/10/18 20:52 96 04/10/18 20:10 Nasal Cannula 2.0 04/10/18 17:17 67 136/79 04/10/18 16:53 97.8 16 I&O Intake and Output 04/10/18 07:01 Intake Total 300 ml Balance 300 ml Intake Oral 300 ml Labs: Laboratory Tests Test 04/10/18 06:43 White Blood Count 5.1 x10^3/uL (4.0-11.0) Red Blood Count 3.90 x10^6/uL (3.50-5.40) Hemoglobin 12.0 g/dL (12.0-15.5) Hematocrit 36.3 % (36.0-47.0) Mean Corpuscular Volume 93 fL (79-100) Mean Corpuscular Hemoglobin 31 pg (25-35) Mean Corpuscular Hemoglobin Concent 33 g/dL (31-37) Red Cell Distribution Width 15.1 % (11.5-14.5) H Platelet Count 142 x10^3/uL (140-400) Neutrophils (%) (Auto) 70 % (31-73) Lymphocytes (%) (Auto) 12 % (24-48) L Monocytes (%) (Auto) 15 % (0-9) H Eosinophils (%) (Auto) 3 % (0-3) Basophils (%) (Auto) 1 % (0-3) Neutrophils # (Auto) 3.5 x10^3uL (1.8-7.7) Lymphocytes # (Auto) 0.6 x10^3/uL (1.0-4.8) L Monocytes # (Auto) 0.7 x10^3/uL (0.0-1.1) Eosinophils # (Auto) 0.1 x10^3/uL (0.0-0.7) Basophils # (Auto) 0.0 x10^3/uL (0.0-0.2) Sodium Level 140 mmol/L (136-145) Potassium Level 4.2 mmol/L (3.5-5.1) Chloride Level 102 mmol/L (98-107) Carbon Dioxide Level 33 mmol/L (21-32) H Anion Gap 5 (6-14) L Blood Urea Nitrogen 11 mg/dL (7-20) Creatinine 0.7 mg/dL (0.6-1.0) Estimated GFR (Cockcroft-Gault) 79.2 BUN/Creatinine Ratio 16 (6-20) Glucose Level 94 mg/dL (70-99) Calcium Level 8.2 mg/dL (8.5-10.1) L Total Bilirubin 0.4 mg/dL (0.2-1.0) Aspartate Amino Transferase (AST) 17 U/L (15-37) Alanine Aminotransferase (ALT) 17 U/L (14-59) Alkaline Phosphatase 43 U/L (46-116) L Total Protein 5.5 g/dL (6.4-8.2) L Albumin 2.3 g/dL (3.4-5.0) L Albumin/Globulin Ratio 0.7 (1.0-1.7) L Current Medications: Meds: Current Medications Multi-Ingredient Ointment (Analgesic [place]) 1 attila PRN QID PRN TP MUSCLE PAIN; Start 03/27/18 at 18:45 Al Hydroxide/Mg Hydroxide (Mylanta Plus Xs) 15 ml PRN AFTMEALHC PRN PO DYSPEPSIA; Start 03/27/18 at 18:45 Magnesium Hydroxide (Milk Of Magnesia) 2,400 mg PRN QHS PRN PO CONSTIPATION; Start 03/27/18 at 18:45 Aspirin (Aspirin Enteric Coated) 325 mg DAILY PO Last administered on 04/10/18at 07:53; Start 03/28/18 at 09:00 Atorvastatin Calcium (Lipitor) 20 mg QHS PO Last administered on 04/10/18at 19:44 ; Start 03/27/18 at 21:00 Estrogens Conjugated (Premarin) 0.5 attila PRN DAILY PRN VG vaginal dryness; Start 03/27/18 at 19:15 Acetaminophen/ Hydrocodone Bitart (Lortab 5/325) 1 tab PRN Q12HR PRN PO PAIN Last administered on 03/30/18 09:06; Start 03/27/18 at 19:15; Stop 03/30/18 at 15:02; Status DC Ipratropium [place] (Atrovent) 0.2 mg PRN Q6HRS PRN IH SHORTNESS OF BREATH; Start 03/27/18 at 19:15 Levothyroxine Sodium (Synthroid) 75 mcg DAILYAC PO Last administered on at 08:40; Start 03/28/18 at 07:30; Stop 03/28/18 at 12:26; Status DC Lisinopril (Prinivil) 10 mg DAILY PO Last administered on 04/10/18 07:57; Start 03/28/18 at 09:00 Acetaminophen (Tylenol) 650 mg PRN Q6HRS PRN PO PAIN / TEMP Last administered on 04/10/18 06:01; Start 03/27/18 at 19:45 Non-Formulary Medication (Albuterol Sulfate (Albuterol Sulfate Conc Neb Soln)) 2.5 mg PRN Q6HRS PRN NEB SHORTNESS OF BREATH; Start 03/27/18 at 19:15; Status UNV Amlodipine Besylate (Norvasc) 10 mg DAILY PO Last administered on 03/31/18 08 :38; Start 03/28/18 at 09:00; Stop 03/31/18 at 12:27; Status DC Non-Formulary Medication (Budesonide/ Formoterol Fumarate (Symbicort 160-4.5 Mcg Inhaler)) 2 puff BID IH ; Start 03/27/18 at 21:00; Status UNV Carvedilol (Coreg) 6.25 mg BIDWMEALS PO Last administered on 04/10/18 17:17; Start 03/27/18 at 20:00 Divalproex Sodium (Depakote Er) 750 mg QHS PO Last administered on 03/27/18at 20:53; Start 03/27/18 at 21:00; Stop 03/28/18 at 21:13; Status DC Docusate Sodium (Colace) 100 mg PRN DAILY PRN PO HARD STOOLS; Start 03/27/18 at 19:45 Donepezil HCl (Aricept) 10 mg QHS PO Last administered on 04/10/18 19:44; Start 03/27/18 at 21:00 Enoxaparin Sodium (Lovenox 40mg Syringe) 40 mg DAILY SQ Last administered on 07:55; Start 03/28/18 at 09:00 Hydralazine HCl (Apresoline) 10 mg TID PO Last administered on 03/31/18at 08:39 ; Start 03/27/18 at 21:00; Stop 03/31/18 at 12:27; Status DC Multivitamins/ Calcium (Thera-M Plus) 1 tab DAILY PO Last administered on 07:54; Start 03/28/18 at 09:00 Olanzapine (ZyPREXA) 5 mg PRN DAILY PRN PO ANXIETY/AGITATION Last administered on 03/29/18at 10:50; Start 03/28/18 at 09:00 Pantoprazole Sodium (Protonix) 40 mg DAILYAC PO Last administered on 04/10/18 07:52; Start 03/28/18 at 07:30 Phenazopyridine HCl (Pyridium) 100 mg PRN TID PRN PO URINARY PAIN; Start 03/27 at 19:45 Polyethylene Glycol (miraLAX) 17 gm PRN BID PRN PO CONSTIPATION; Start at 09:00 Sodium Chloride (Saline Mist Nasal) 1 attila QID NS ; Start 03/27/18 at 21:00; Status Cancel Trazodone HCl (Desyrel) 25 mg PRN BID PRN PO ANXIETY/AGITATION; Start at 19:45 Trazodone HCl (Desyrel) 50 mg PRN QHS PRN PO INSOMNIA; Start 03/27/18 at 19:45 Lidocaine (Lidoderm) 1 patch DAILY TD Last administered on 04/10/18 07:56; Start 03/28/18 at 09:00 Multivitamins/ Minerals (I-Angelo) 1 tab DAILY PO Last administered on 04/10/18 07:57; Start 03/28/18 at 09:00 Miscellaneous (Lidoderm Patch Removal) 1 ea QHS MC Last administered on 19:43; Start 03/27/18 at 21:00 Albuterol Sulfate (Ventolin) 2.5 mg PRN Q6HRS PRN NEB SHORTNESS OF BREATH; Start 03/27/18 at 19:45 Albuterol Sulfate (Ventolin) 2.5 mg RTQID NEB Last administered on 04/10/18 20: 27; Start 03/27/18 at 20:00 Budesonide (Pulmicort) 0.5 mg RTBID NEB Last administered on 04/10/18 20:27; Start 03/27/18 at 20:00 Sodium Chloride ([place] Saline Nasal) 2 attila QID NS ; Start 03/27/18 at 21:00; Stop 03/28/18 at 13:08; Status DC Levothyroxine Sodium (Synthroid) 75 mcg DAILY06 PO Last administered on 06:01; Start 03/29/18 at 06:00 Sodium Chloride (Saline Mist Nasal) 1 attila PRN QID PRN NS NASAL CONGESTION; Start 03/28/18 at 13:15 Divalproex Sodium (Depakote Sprinkles) 750 mg HS PO Last administered on at 20:20; Start 03/28/18 at 21:30; Stop 03/30/18 at 14:27; Status DC Sertraline HCl (Zoloft) 25 mg DAILY PO Last administered on 03/31/18at 08:39; Start 03/29/18 at 09:00; Stop 03/31/18 at 09:01; Status DC Sertraline HCl (Zoloft) 50 mg DAILY PO Last administered on 04/10/18 07:55; Start 04/01/18 at 09:00 Divalproex Sodium (Depakote Sprinkles) 500 mg BID94 PO Last administered on at 07:55; Start 03/30/18 at 09:00; Stop 03/30/18 at 14:27; Status DC Quetiapine Fumarate (SEROquel) 12.5 mg 1300 PO Last administered on 04/10/18 12 :12; Start 03/30/18 at 13:00 Divalproex Sodium (Depakote Sprinkles) 500 mg BID PO Last administered on 04/01at 09:59; Start 03/30/18 at 21:00; Stop 04/01/18 at 17:43; Status DC Acetaminophen/ Hydrocodone Bitart (Lortab 5/325) 1 tab PRN Q6HRS PRN PO PAIN Last administered on 04/10/18 19:52; Start 03/30/18 at 15:15 Olanzapine (ZyPREXA ZYDIS) 2.5 mg PRN Q2HR PRN PO PSYCHOSIS; Start 03/30/18 at 19:15 Divalproex Sodium (Depakote Sprinkles) 625 mg BID PO Last administered on 19:44; Start 04/01/18 at 21:00 Ondansetron HCl (Zofran Odt) 4 mg PRN Q8HRS PRN PO NAUSEA/VOMITING Last administered on 04/09/18at 08:30; Start 04/09/18 at 08:30 Active Scripts Active Reported [occuvite] 1 Tab PO DAILY Pyridium (Phenazopyridine Hcl) 100 Mg Tablet 100 Mg PO PRN TID PRN Trazodone Hcl 50 Mg Tablet 25 Mg PO PRN QHS PRN Premarin (Estrogens, Conjugated) 30 Gm Cream.appl 0.5 Gm VG PRN DAILY PRN Multivitamins (Multivitamin) 1 Each Tablet 1 Tab PO DAILY Trazodone Hcl 50 Mg Tablet 25 Mg PO BID PRN [place] Saline (Sodium Chloride) 50 Ml Drops 2 Drop NS QID Miralax (Polyethylene Glycol 3350) 17 Gm Powd.pack 17 Gm PO PRN BID PRN Protonix (Pantoprazole Sodium) 40 Mg Tablet.dr 40 Mg PO DAILY Zyprexa (Olanzapine) 5 Mg Tablet 5 Mg PO PRN DAILY PRN Lisinopril 10 Mg Tablet 10 Mg PO DAILY [lidoderm] 1 Patch TD DAILY Levothyroxine Sodium 75 Mcg Tablet 75 Mcg PO DAILYAC Ipratropium [place] 0.2 Mg/1 Ml Solution 0.2 Mg IH PRN Q6HRS PRN Hydrocodone-Apap 5-325 (Hydrocodone Bit/Acetaminophen) 1 Each Tablet 1 Tab PO PRN Q12HR PRN Hydralazine Hcl 10 Mg Tablet 10 Mg PO TID Lovenox (Enoxaparin Sodium) 40 Mg/0.4 Ml Disp.syrin 40 Mg SQ DAILY Donepezil Hcl 10 Mg Tablet 10 Mg PO HS Colace (Docusate Sodium) 100 Mg Capsule 100 Mg PO PRN DAILY PRN Depakote Er (Divalproex Sodium) 500 Mg Tab.er.24h 750 Mg PO HS Coreg (Carvedilol) 6.25 Mg Tablet 6.25 Mg PO BIDWMEALS Symbicort 160-4.5 Mcg Inhaler (Budesonide/Formoterol Fumarate) 10.2 Gm Hfa.aer.ad 2 Puff IH BID Lipitor (Atorvastatin Calcium) 20 Mg Tablet 20 Mg PO QHS Aspirin Ec (Aspirin) 325 Mg Tablet.dr 325 Mg PO DAILY Amlodipine Besylate 10 Mg Tablet 10 Mg PO DAILY Albuterol Sulfate Conc Neb Soln (Albuterol Sulfate) 2.5 Mg/0.5 Ml Vial.neb 2.5 Mg NEB PRN Q6HRS PRN Acetaminophen 650 Mg/20.3 Ml Solution 650 Mg PO PRN Q6HRS PRN I have reviewed the current psychotropics carefully including drug interactions. Risk benefit ratio favors no change other than as noted in my dictated progress note. Diagnosis: Problems: (1) Anxiety disorder (2) Major depressive disorder, recurrent episode (3) Psychosis, atypical (4) Impulse control disorder GWEN ROY MD Apr 10, 2018 22:42
[2018-04-11] MEDS: LEVOTHYROXINE 75 MCG TABLET PO SCH (04:58)
[2018-04-11] MEDS: ALBUTEROL SULFATE 2.5 MG/3 ML NEBU. NEB SCH ×4 (05:13→20:00)
[2018-04-11 05:44] VITALS: BP 163/74
[2018-04-11] MEDS: SERTRALINE 25 MG TABLET. PO SCH (07:55)
[2018-04-11] MEDS: DIVALPROEX 125 MG CAP.SPRINK PO SCH ×2 (07:55→19:40)
[2018-04-11] MEDS: LIDOCAINE (700MG/PATCH) PATCH. TD SCH (07:55)
[2018-04-11] MEDS: MULTIVITAMIN with MINERAL TABLET. PO SCH (07:55)
[2018-04-11] MEDS: ENOXAPARIN 40 MG/0.4 ML SYRINGE. SQ SCH (07:55)
[2018-04-11] MEDS: MULTIVITAMIN I-VITE TABLET. PO SCH (07:56)
[2018-04-11] MEDS: ASPIRIN ENTERIC COATED 325 MG TABLET.DR. PO SCH (07:56)
[2018-04-11] MEDS: PANTOPRAZOLE 40 MG TABLET. PO SCH (07:56)
[2018-04-11] MEDS: CARVEDILOL 6.25 MG TABLET PO SCH ×2 (07:56→17:17)
[2018-04-11] MEDS: LISINOPRIL 10 MG TABLET PO SCH (07:56)
[2018-04-11] MEDS: HYDROcodone/APAP 5/325MG 1 TAB TABLET PO PRN (08:40)
[2018-04-11] MEDS: BUDESONIDE 0.5 MG/2 ML NEBU NEB SCH ×2 (09:38→20:00)
[2018-04-11] MEDS: QUEtiapine 25 MG TABLET. PO SCH (12:52)
[2018-04-11 16:18] VITALS: BP 120/77
[2018-04-11] MEDS: ATORVASTATIN CALCIUM 20 MG TABLET PO SCH (19:39)
[2018-04-11] MEDS: DONEPEZIL HCL 10 MG TABLET PO SCH (19:39)
[2018-04-11] MEDS: PATCH REMOVAL. MC SCH (19:40)
--- NOTE | 2018-04-11 21:04 | PDOC ---
Exam Note: Akshat Note: Please also refer to the separate dictated note~for this date of service dictated separately.~Patient seen individually. Discussed the patient with Nursing staff reviewed the chart.~Reviewed interim history and current functioning. Reviewed vital signs,~Labs/ Radiology~and current medications noted below. Continue current treatment with the changes noted in the dictated addendum note Assessment: Vital Signs: Vital Signs Date Time Temp Pulse Resp B/P (MAP) Pulse Ox O2 Delivery O2 Flow Rate FiO2 04/11/18 17:17 84 120/77 04/11/18 16:18 98.0 20 95 Nasal Cannula 2.0 I&O Intake and Output 04/11/18 07:01 Intake Total 480 ml Balance 480 ml Intake Oral 480 ml # Voids 1 Current Medications: Meds: Current Medications Multi-Ingredient Ointment (Analgesic [place]) 1 attila PRN QID PRN TP MUSCLE PAIN; Start 03/27/18 at 18:45 Al Hydroxide/Mg Hydroxide (Mylanta Plus Xs) 15 ml PRN AFTMEALHC PRN PO DYSPEPSIA; Start 03/27/18 at 18:45 Magnesium Hydroxide (Milk Of Magnesia) 2,400 mg PRN QHS PRN PO CONSTIPATION; Start 03/27/18 at 18:45 Aspirin (Aspirin Enteric Coated) 325 mg DAILY PO Last administered on 04/11/18at 07:56; Start 03/28/18 at 09:00 Atorvastatin Calcium (Lipitor) 20 mg QHS PO Last administered on 04/11/18at 19:39 ; Start 03/27/18 at 21:00 Estrogens Conjugated (Premarin) 0.5 attila PRN DAILY PRN VG vaginal dryness; Start 03/27/18 at 19:15 Acetaminophen/ Hydrocodone Bitart (Lortab 5/325) 1 tab PRN Q12HR PRN PO PAIN Last administered on 03/30/18at 09:06; Start 03/27/18 at 19:15; Stop 03/30/18 at 15:02; Status DC Ipratropium [place] (Atrovent) 0.2 mg PRN Q6HRS PRN IH SHORTNESS OF BREATH; Start 03/27/18 at 19:15 Levothyroxine Sodium (Synthroid) 75 mcg DAILYAC PO Last administered on at 08:40; Start 03/28/18 at 07:30; Stop 03/28/18 at 12:26; Status DC Lisinopril (Prinivil) 10 mg DAILY PO Last administered on 04/11/18 07:56; Start 03/28/18 at 09:00 Acetaminophen (Tylenol) 650 mg PRN Q6HRS PRN PO PAIN / TEMP Last administered on 04/10/18 06:01; Start 03/27/18 at 19:45 Non-Formulary Medication (Albuterol Sulfate (Albuterol Sulfate Conc Neb Soln)) 2.5 mg PRN Q6HRS PRN NEB SHORTNESS OF BREATH; Start 03/27/18 at 19:15; Status UNV Amlodipine Besylate (Norvasc) 10 mg DAILY PO Last administered on 03/31/18at 08 :38; Start 03/28/18 at 09:00; Stop 03/31/18 at 12:27; Status DC Non-Formulary Medication (Budesonide/ Formoterol Fumarate (Symbicort 160-4.5 Mcg Inhaler)) 2 puff BID IH ; Start 03/27/18 at 21:00; Status UNV Carvedilol (Coreg) 6.25 mg BIDWMEALS PO Last administered on 04/11/18 17:17; Start 03/27/18 at 20:00 Divalproex Sodium (Depakote Er) 750 mg QHS PO Last administered on 03/27/18at 20:53; Start 03/27/18 at 21:00; Stop 03/28/18 at 21:13; Status DC Docusate Sodium (Colace) 100 mg PRN DAILY PRN PO HARD STOOLS; Start 03/27/18 at 19:45 Donepezil HCl (Aricept) 10 mg QHS PO Last administered on 04/11/18 19:39; Start 03/27/18 at 21:00 Enoxaparin Sodium (Lovenox 40mg Syringe) 40 mg DAILY SQ Last administered on 07:55; Start 03/28/18 at 09:00 Hydralazine HCl (Apresoline) 10 mg TID PO Last administered on 03/31/18at 08:39 ; Start 03/27/18 at 21:00; Stop 03/31/18 at 12:27; Status DC Multivitamins/ Calcium (Thera-M Plus) 1 tab DAILY PO Last administered on 07:55; Start 03/28/18 at 09:00 Olanzapine (ZyPREXA) 5 mg PRN DAILY PRN PO ANXIETY/AGITATION Last administered on 03/29/18at 10:50; Start 03/28/18 at 09:00 Pantoprazole Sodium (Protonix) 40 mg DAILYAC PO Last administered on 04/11/18 07:56; Start 03/28/18 at 07:30 Phenazopyridine HCl (Pyridium) 100 mg PRN TID PRN PO URINARY PAIN; Start 03/27 at 19:45 Polyethylene Glycol (miraLAX) 17 gm PRN BID PRN PO CONSTIPATION; Start at 09:00 Sodium Chloride (Saline Mist Nasal) 1 attila QID NS ; Start 03/27/18 at 21:00; Status Cancel Trazodone HCl (Desyrel) 25 mg PRN BID PRN PO ANXIETY/AGITATION; Start at 19:45 Trazodone HCl (Desyrel) 50 mg PRN QHS PRN PO INSOMNIA; Start 03/27/18 at 19:45 Lidocaine (Lidoderm) 1 patch DAILY TD Last administered on 04/11/18 07:55; Start 03/28/18 at 09:00 Multivitamins/ Minerals (I-Angelo) 1 tab DAILY PO Last administered on 04/11/18 07:56; Start 03/28/18 at 09:00 Miscellaneous (Lidoderm Patch Removal) 1 ea QHS MC Last administered on 19:40; Start 03/27/18 at 21:00 Albuterol Sulfate (Ventolin) 2.5 mg PRN Q6HRS PRN NEB SHORTNESS OF BREATH; Start 03/27/18 at 19:45 Albuterol Sulfate (Ventolin) 2.5 mg RTQID NEB Last administered on 04/11/18 15: 23; Start 03/27/18 at 20:00 Budesonide (Pulmicort) 0.5 mg RTBID NEB Last administered on 04/11/18 09:38; Start 03/27/18 at 20:00 Sodium Chloride ([place] Saline Nasal) 2 attila QID NS ; Start 03/27/18 at 21:00; Stop 03/28/18 at 13:08; Status DC Levothyroxine Sodium (Synthroid) 75 mcg DAILY06 PO Last administered on 04:58; Start 03/29/18 at 06:00 Sodium Chloride (Saline Mist Nasal) 1 attila PRN QID PRN NS NASAL CONGESTION; Start 03/28/18 at 13:15 Divalproex Sodium (Depakote Sprinkles) 750 mg HS PO Last administered on at 20:20; Start 03/28/18 at 21:30; Stop 03/30/18 at 14:27; Status DC Sertraline HCl (Zoloft) 25 mg DAILY PO Last administered on 03/31/18at 08:39; Start 03/29/18 at 09:00; Stop 03/31/18 at 09:01; Status DC Sertraline HCl (Zoloft) 50 mg DAILY PO Last administered on 04/11/18 07:55; Start 04/01/18 at 09:00 Divalproex Sodium (Depakote Sprinkles) 500 mg BID94 PO Last administered on at 07:55; Start 03/30/18 at 09:00; Stop 03/30/18 at 14:27; Status DC Quetiapine Fumarate (SEROquel) 12.5 mg 1300 PO Last administered on 04/11/18 12 :52; Start 03/30/18 at 13:00 Divalproex Sodium (Depakote Sprinkles) 500 mg BID PO Last administered on 04/01at 09:59; Start 03/30/18 at 21:00; Stop 04/01/18 at 17:43; Status DC Acetaminophen/ Hydrocodone Bitart (Lortab 5/325) 1 tab PRN Q6HRS PRN PO PAIN Last administered on 04/11/18 08:40; Start 03/30/18 at 15:15 Olanzapine (ZyPREXA ZYDIS) 2.5 mg PRN Q2HR PRN PO PSYCHOSIS; Start 03/30/18 at 19:15 Divalproex Sodium (Depakote Sprinkles) 625 mg BID PO Last administered on 19:40; Start 04/01/18 at 21:00 Ondansetron HCl (Zofran Odt) 4 mg PRN Q8HRS PRN PO NAUSEA/VOMITING Last administered on 04/09/18at 08:30; Start 04/09/18 at 08:30 Active Scripts Active Reported [occuvite] 1 Tab PO DAILY Pyridium (Phenazopyridine Hcl) 100 Mg Tablet 100 Mg PO PRN TID PRN Trazodone Hcl 50 Mg Tablet 25 Mg PO PRN QHS PRN Premarin (Estrogens, Conjugated) 30 Gm Cream.appl 0.5 Gm VG PRN DAILY PRN Multivitamins (Multivitamin) 1 Each Tablet 1 Tab PO DAILY Trazodone Hcl 50 Mg Tablet 25 Mg PO BID PRN [place] Saline (Sodium Chloride) 50 Ml Drops 2 Drop NS QID Miralax (Polyethylene Glycol 3350) 17 Gm Powd.pack 17 Gm PO PRN BID PRN Protonix (Pantoprazole Sodium) 40 Mg Tablet. 40 Mg PO DAILY Zyprexa (Olanzapine) 5 Mg Tablet 5 Mg PO PRN DAILY PRN Lisinopril 10 Mg Tablet 10 Mg PO DAILY [lidoderm] 1 Patch TD DAILY Levothyroxine Sodium 75 Mcg Tablet 75 Mcg PO DAILYAC Ipratropium [place] 0.2 Mg/1 Ml Solution 0.2 Mg IH PRN Q6HRS PRN Hydrocodone-Apap 5-325 (Hydrocodone Bit/Acetaminophen) 1 Each Tablet 1 Tab PO PRN Q12HR PRN Hydralazine Hcl 10 Mg Tablet 10 Mg PO TID Lovenox (Enoxaparin Sodium) 40 Mg/0.4 Ml Disp.syrin 40 Mg SQ DAILY Donepezil Hcl 10 Mg Tablet 10 Mg PO HS Colace (Docusate Sodium) 100 Mg Capsule 100 Mg PO PRN DAILY PRN Depakote Er (Divalproex Sodium) 500 Mg Tab.er.24h 750 Mg PO HS Coreg (Carvedilol) 6.25 Mg Tablet 6.25 Mg PO BIDWMEALS Symbicort 160-4.5 Mcg Inhaler (Budesonide/Formoterol Fumarate) 10.2 Gm Hfa.aer.ad 2 Puff IH BID Lipitor (Atorvastatin Calcium) 20 Mg Tablet 20 Mg PO QHS Aspirin Ec (Aspirin) 325 Mg Tablet. 325 Mg PO DAILY Amlodipine Besylate 10 Mg Tablet 10 Mg PO DAILY Albuterol Sulfate Conc Neb Soln (Albuterol Sulfate) 2.5 Mg/0.5 Ml Vial.neb 2.5 Mg NEB PRN Q6HRS PRN Acetaminophen 650 Mg/20.3 Ml Solution 650 Mg PO PRN Q6HRS PRN I have reviewed the current psychotropics carefully including drug interactions. Risk benefit ratio favors no change other than as noted in my dictated progress note. Diagnosis: Problems: (1) Anxiety disorder (2) Major depressive disorder, recurrent episode (3) Psychosis, atypical (4) Impulse control disorder GWEN ROY MD Apr 11, 2018 21:04
--- NOTE | 2018-04-11 22:02 | PN ---
DATE: 04/11/2018 This note covers elements not covered in my initial note of 04/11/2018. SUBJECTIVE: I met with the patient in her room. The patient slept 6 hours previous night. She has been somewhat irritable in the morning, agitated, incontinent. We will check a UA to rule out urinary tract infection. She was up during the day. Later in the day, she was quite pleasant. REVIEW OF SYSTEMS: Impaired ambulation, shortness of breath on O2 supplements, in a wheelchair. No CV, , GI, eye system symptoms on review. MENTAL STATUS EXAM: The patient is oriented to herself and situation. Speech has some latency, coherent. Abstraction fair, computation impaired, language function intact, attention span short. Mood and affect, still withdrawn, but showing some improvement, less labile. LABORATORY DATA: Reviewed. IMPRESSION: Major depressive disorder, rule out bipolar 1 disorder, depressed; cognitive disorder, unspecified. PLAN: No change from initial note. Valproic acid level is therapeutic at 54. We will leave Depakote dosage unchanged. GWEN ROY MD DR: HERMELINDA/alexandra JOB#: [id number] / [id number]
[2018-04-12 02:54] LABS: BACTERIA,URINE MANY /HPF (0-FEW); BILIRUBIN,URINE NEG (NEG); CLARITY,URINE HAZY; COLOR,URINE YELLOW; GLUCOSE,URINE NEG (NEG); NITRITE,URINE POS (NEG); SQUAMOUS EPITHELIAL CELL,UR MOD /LPF; UROBILINOGEN,URINE 0.2 mg/dL (0.2 mg/dL); WBC,URINE >40 /HPF (0-4)
[2018-04-12] MEDS: ALBUTEROL SULFATE 2.5 MG/3 ML NEBU. NEB SCH ×4 (04:58→19:44)
[2018-04-12] MEDS: LEVOTHYROXINE 75 MCG TABLET PO SCH (05:05)
[2018-04-12 06:04] VITALS: BP 171/81
[2018-04-12] MEDS: LIDOCAINE (700MG/PATCH) PATCH. TD SCH (08:01)
[2018-04-12] MEDS: ASPIRIN ENTERIC COATED 325 MG TABLET.DR. PO SCH (08:01)
[2018-04-12] MEDS: DIVALPROEX 125 MG CAP.SPRINK PO SCH ×2 (08:01→21:06)
[2018-04-12] MEDS: ENOXAPARIN 40 MG/0.4 ML SYRINGE. SQ SCH (08:01)
[2018-04-12] MEDS: MULTIVITAMIN with MINERAL TABLET. PO SCH (08:01)
[2018-04-12] MEDS: MULTIVITAMIN I-VITE TABLET. PO SCH (08:02)
[2018-04-12] MEDS: PANTOPRAZOLE 40 MG TABLET. PO SCH (08:02)
[2018-04-12] MEDS: SERTRALINE 25 MG TABLET. PO SCH (08:02)
[2018-04-12] MEDS: CARVEDILOL 6.25 MG TABLET PO SCH ×2 (08:02→16:59)
[2018-04-12] MEDS: LISINOPRIL 10 MG TABLET PO SCH (08:03)
--- NOTE | 2018-04-12 10:23 | PN ---
DATE: 04/10/2018 PSYCHIATRIC PROGRESS NOTE This late entry 04/10/2018 covers elements not covered in my initial note. SUBJECTIVE: I met with the patient in the evening. The patient slept 7 hours previous night. When I met with her, she said she was not feeling well, has had some chronic pain symptoms. Received p.r.n. medications for this somewhat withdrawn. REVIEW OF SYSTEMS: Shortness of breath on O2 supplements, impaired ambulation in a wheelchair. No CV, , GI, eye system symptoms on review. MENTAL STATUS EXAM: Oriented to herself and situation. Speech has some latency. Abstraction fair, computation impaired, language function intact, attention span short. Mood and affect somewhat withdrawn. No suicidal ideation. LABORATORY DATA: Reviewed. IMPRESSION: Major depressive disorder, rule out bipolar 1 disorder, mixed; anxiety disorder, unspecified; major neurocognitive disorder, early Alzheimer, vascular with depression. Rest unchanged. PLAN: No change from initial note. Valproic acid level is therapeutic at 54. MAN Rk ROY MD DR: HERMELINDA/alexandra JOB#: [id number] / [id number]
[2018-04-12] MEDS: BUDESONIDE 0.5 MG/2 ML NEBU NEB SCH ×2 (10:33→19:44)
[2018-04-12] MEDS: QUEtiapine 25 MG TABLET. PO SCH (11:55)
[2018-04-12 16:08] VITALS: BP 150/81
[2018-04-12] MEDS: PATCH REMOVAL. MC SCH (21:00)
[2018-04-12] MEDS: DONEPEZIL HCL 10 MG TABLET PO SCH (21:06)
[2018-04-12] MEDS: ATORVASTATIN CALCIUM 20 MG TABLET PO SCH (21:06)
[2018-04-12] MEDS: HYDROcodone/APAP 5/325MG 1 TAB TABLET PO PRN (21:13)
--- NOTE | 2018-04-12 22:44 | PDOC ---
Exam Note: Akshat Note: Please also refer to the separate dictated note~for this date of service dictated separately.~Patient seen individually. Discussed the patient with Nursing staff reviewed the chart.~Reviewed interim history and current functioning. Reviewed vital signs,~Labs/ Radiology~and current medications noted below. Continue current treatment with the changes noted in the dictated addendum note Assessment: Vital Signs: Vital Signs Date Time Temp Pulse Resp B/P (MAP) Pulse Ox O2 Delivery O2 Flow Rate FiO2 04/12/18 19:45 93 Nasal Cannula 2.0 04/12/18 16:59 66 150/81 04/12/18 16:08 97.3 18 I&O Intake and Output 04/12/18 07:01 Intake Total 1080 ml Balance 1080 ml Intake Oral 1080 ml # Bowel Movements 1 Labs: Laboratory Tests Test 04/12/18 02:13 Urine Collection Type Unknown Urine Color Yellow Urine Clarity Hazy Urine pH 7.0 Urine Specific [place] 1.015 Urine Protein Trace (NEG-TRACE) Urine Glucose (UA) Neg mg/dL (NEG) Urine Ketones (Stick) Neg mg/dL (NEG) Urine Blood Trace (NEG) Urine Nitrite Pos (NEG) Urine Bilirubin Neg (NEG) Urine Urobilinogen Dipstick 0.2 mg/dL (0.2 mg/dL) Urine Leukocyte Esterase Small (NEG) Urine RBC 1-2 /HPF (0-2) Urine WBC >40 /HPF (0-4) Urine Squamous Epithelial Cells Mod /LPF Urine Bacteria Many /HPF (0-FEW) Current Medications: Meds: Current Medications Multi-Ingredient Ointment (Analgesic [place]) 1 attila PRN QID PRN TP MUSCLE PAIN; Start 03/27/18 at 18:45 Al Hydroxide/Mg Hydroxide (Mylanta Plus Xs) 15 ml PRN AFTMEALHC PRN PO DYSPEPSIA; Start 03/27/18 at 18:45 Magnesium Hydroxide (Milk Of Magnesia) 2,400 mg PRN QHS PRN PO CONSTIPATION; Start 03/27/18 at 18:45 Aspirin (Aspirin Enteric Coated) 325 mg DAILY PO Last administered on 04/12/18at 08:01; Start 03/28/18 at 09:00 Atorvastatin Calcium (Lipitor) 20 mg QHS PO Last administered on 04/12/18at 21:06 ; Start 03/27/18 at 21:00 Estrogens Conjugated (Premarin) 0.5 attila PRN DAILY PRN VG vaginal dryness; Start 03/27/18 at 19:15 Acetaminophen/ Hydrocodone Bitart (Lortab 5/325) 1 tab PRN Q12HR PRN PO PAIN Last administered on 03/30/18at 09:06; Start 03/27/18 at 19:15; Stop 03/30/18 at 15:02; Status DC Ipratropium [place] (Atrovent) 0.2 mg PRN Q6HRS PRN IH SHORTNESS OF BREATH; Start 03/27/18 at 19:15 Levothyroxine Sodium (Synthroid) 75 mcg DAILYAC PO Last administered on at 08:40; Start 03/28/18 at 07:30; Stop 03/28/18 at 12:26; Status DC Lisinopril (Prinivil) 10 mg DAILY PO Last administered on 04/12/18 08:03; Start 03/28/18 at 09:00 Acetaminophen (Tylenol) 650 mg PRN Q6HRS PRN PO PAIN / TEMP Last administered on 04/10/18 06:01; Start 03/27/18 at 19:45 Non-Formulary Medication (Albuterol Sulfate (Albuterol Sulfate Conc Neb Soln)) 2.5 mg PRN Q6HRS PRN NEB SHORTNESS OF BREATH; Start 03/27/18 at 19:15; Status UNV Amlodipine Besylate (Norvasc) 10 mg DAILY PO Last administered on 03/31/18at 08 :38; Start 03/28/18 at 09:00; Stop 03/31/18 at 12:27; Status DC Non-Formulary Medication (Budesonide/ Formoterol Fumarate (Symbicort 160-4.5 Mcg Inhaler)) 2 puff BID IH ; Start 03/27/18 at 21:00; Status UNV Carvedilol (Coreg) 6.25 mg BIDWMEALS PO Last administered on 04/12/18 16:59; Start 03/27/18 at 20:00 Divalproex Sodium (Depakote Er) 750 mg QHS PO Last administered on 03/27/18at 20:53; Start 03/27/18 at 21:00; Stop 03/28/18 at 21:13; Status DC Docusate Sodium (Colace) 100 mg PRN DAILY PRN PO HARD STOOLS; Start 03/27/18 at 19:45 Donepezil HCl (Aricept) 10 mg QHS PO Last administered on 04/12/18 21:06; Start 03/27/18 at 21:00 Enoxaparin Sodium (Lovenox 40mg Syringe) 40 mg DAILY SQ Last administered on 08:01; Start 03/28/18 at 09:00 Hydralazine HCl (Apresoline) 10 mg TID PO Last administered on 03/31/18at 08:39 ; Start 03/27/18 at 21:00; Stop 03/31/18 at 12:27; Status DC Multivitamins/ Calcium (Thera-M Plus) 1 tab DAILY PO Last administered on 08:01; Start 03/28/18 at 09:00 Olanzapine (ZyPREXA) 5 mg PRN DAILY PRN PO ANXIETY/AGITATION Last administered on 03/29/18at 10:50; Start 03/28/18 at 09:00 Pantoprazole Sodium (Protonix) 40 mg DAILYAC PO Last administered on 04/12/18 08:02; Start 03/28/18 at 07:30 Phenazopyridine HCl (Pyridium) 100 mg PRN TID PRN PO URINARY PAIN; Start 03/27 at 19:45 Polyethylene Glycol (miraLAX) 17 gm PRN BID PRN PO CONSTIPATION; Start at 09:00 Sodium Chloride (Saline Mist Nasal) 1 attila QID NS ; Start 03/27/18 at 21:00; Status Cancel Trazodone HCl (Desyrel) 25 mg PRN BID PRN PO ANXIETY/AGITATION; Start at 19:45 Trazodone HCl (Desyrel) 50 mg PRN QHS PRN PO INSOMNIA; Start 03/27/18 at 19:45 Lidocaine (Lidoderm) 1 patch DAILY TD Last administered on 04/12/18 08:01; Start 03/28/18 at 09:00 Multivitamins/ Minerals (I-Angelo) 1 tab DAILY PO Last administered on 04/12/18 08:02; Start 03/28/18 at 09:00 Miscellaneous (Lidoderm Patch Removal) 1 ea QHS MC Last administered on 21:00; Start 03/27/18 at 21:00 Albuterol Sulfate (Ventolin) 2.5 mg PRN Q6HRS PRN NEB SHORTNESS OF BREATH; Start 03/27/18 at 19:45 Albuterol Sulfate (Ventolin) 2.5 mg RTQID NEB Last administered on 04/12/18 19: 44; Start 03/27/18 at 20:00 Budesonide (Pulmicort) 0.5 mg RTBID NEB Last administered on 04/12/18 19:44; Start 03/27/18 at 20:00 Sodium Chloride ([place] Saline Nasal) 2 attila QID NS ; Start 03/27/18 at 21:00; Stop 03/28/18 at 13:08; Status DC Levothyroxine Sodium (Synthroid) 75 mcg DAILY06 PO Last administered on 05:05; Start 03/29/18 at 06:00 Sodium Chloride (Saline Mist Nasal) 1 attila PRN QID PRN NS NASAL CONGESTION; Start 03/28/18 at 13:15 Divalproex Sodium (Depakote Sprinkles) 750 mg HS PO Last administered on at 20:20; Start 03/28/18 at 21:30; Stop 03/30/18 at 14:27; Status DC Sertraline HCl (Zoloft) 25 mg DAILY PO Last administered on 03/31/18at 08:39; Start 03/29/18 at 09:00; Stop 03/31/18 at 09:01; Status DC Sertraline HCl (Zoloft) 50 mg DAILY PO Last administered on 04/12/18 08:02; Start 04/01/18 at 09:00 Divalproex Sodium (Depakote Sprinkles) 500 mg BID94 PO Last administered on at 07:55; Start 03/30/18 at 09:00; Stop 03/30/18 at 14:27; Status DC Quetiapine Fumarate (SEROquel) 12.5 mg 1300 PO Last administered on 04/12/18at 11 :55; Start 03/30/18 at 13:00 Divalproex Sodium (Depakote Sprinkles) 500 mg BID PO Last administered on 04/01at 09:59; Start 03/30/18 at 21:00; Stop 04/01/18 at 17:43; Status DC Acetaminophen/ Hydrocodone Bitart (Lortab 5/325) 1 tab PRN Q6HRS PRN PO PAIN Last administered on 04/12/18 21:13; Start 03/30/18 at 15:15 Olanzapine (ZyPREXA ZYDIS) 2.5 mg PRN Q2HR PRN PO PSYCHOSIS; Start 03/30/18 at 19:15 Divalproex Sodium (Depakote Sprinkles) 625 mg BID PO Last administered on 21:06; Start 04/01/18 at 21:00 Ondansetron HCl (Zofran Odt) 4 mg PRN Q8HRS PRN PO NAUSEA/VOMITING Last administered on 04/09/18 08:30; Start 04/09/18 at 08:30 Active Scripts Active Reported [occuvite] 1 Tab PO DAILY Pyridium (Phenazopyridine Hcl) 100 Mg Tablet 100 Mg PO PRN TID PRN Trazodone Hcl 50 Mg Tablet 25 Mg PO PRN QHS PRN Premarin (Estrogens, Conjugated) 30 Gm Cream.appl 0.5 Gm VG PRN DAILY PRN Multivitamins (Multivitamin) 1 Each Tablet 1 Tab PO DAILY Trazodone Hcl 50 Mg Tablet 25 Mg PO BID PRN [place] Saline (Sodium Chloride) 50 Ml Drops 2 Drop NS QID Miralax (Polyethylene Glycol 3350) 17 Gm Powd.pack 17 Gm PO PRN BID PRN Protonix (Pantoprazole Sodium) 40 Mg Tablet.dr 40 Mg PO DAILY Zyprexa (Olanzapine) 5 Mg Tablet 5 Mg PO PRN DAILY PRN Lisinopril 10 Mg Tablet 10 Mg PO DAILY [lidoderm] 1 Patch TD DAILY Levothyroxine Sodium 75 Mcg Tablet 75 Mcg PO DAILYAC Ipratropium [place] 0.2 Mg/1 Ml Solution 0.2 Mg IH PRN Q6HRS PRN Hydrocodone-Apap 5-325 (Hydrocodone Bit/Acetaminophen) 1 Each Tablet 1 Tab PO PRN Q12HR PRN Hydralazine Hcl 10 Mg Tablet 10 Mg PO TID Lovenox (Enoxaparin Sodium) 40 Mg/0.4 Ml Disp.syrin 40 Mg SQ DAILY Donepezil Hcl 10 Mg Tablet 10 Mg PO HS Colace (Docusate Sodium) 100 Mg Capsule 100 Mg PO PRN DAILY PRN Depakote Er (Divalproex Sodium) 500 Mg Tab.er.24h 750 Mg PO HS Coreg (Carvedilol) 6.25 Mg Tablet 6.25 Mg PO BIDWMEALS Symbicort 160-4.5 Mcg Inhaler (Budesonide/Formoterol Fumarate) 10.2 Gm Hfa.aer.ad 2 Puff IH BID Lipitor (Atorvastatin Calcium) 20 Mg Tablet 20 Mg PO QHS Aspirin Ec (Aspirin) 325 Mg Tablet.dr 325 Mg PO DAILY Amlodipine Besylate 10 Mg Tablet 10 Mg PO DAILY Albuterol Sulfate Conc Neb Soln (Albuterol Sulfate) 2.5 Mg/0.5 Ml Vial.neb 2.5 Mg NEB PRN Q6HRS PRN Acetaminophen 650 Mg/20.3 Ml Solution 650 Mg PO PRN Q6HRS PRN I have reviewed the current psychotropics carefully including drug interactions. Risk benefit ratio favors no change other than as noted in my dictated progress note. Diagnosis: Problems: (1) Anxiety disorder (2) Major depressive disorder, recurrent episode (3) Psychosis, atypical (4) Impulse control disorder GWEN ROY MD Apr 12, 2018 22:44
[2018-04-13] MEDS: ALBUTEROL SULFATE 2.5 MG/3 ML NEBU. NEB SCH ×4 (05:05→20:11)
[2018-04-13 05:42] VITALS: BP 131/78
[2018-04-13] MEDS: LEVOTHYROXINE 75 MCG TABLET PO SCH (05:45)
[2018-04-13] MEDS: PANTOPRAZOLE 40 MG TABLET. PO SCH (07:31)
[2018-04-13] MEDS: ASPIRIN ENTERIC COATED 325 MG TABLET.DR. PO SCH (07:31)
[2018-04-13] MEDS: DIVALPROEX 125 MG CAP.SPRINK PO SCH ×2 (07:31→21:11)
[2018-04-13] MEDS: MULTIVITAMIN I-VITE TABLET. PO SCH (07:32)
[2018-04-13] MEDS: CARVEDILOL 6.25 MG TABLET PO SCH ×2 (07:32→16:43)
[2018-04-13] MEDS: SERTRALINE 25 MG TABLET. PO SCH (07:32)
[2018-04-13] MEDS: LISINOPRIL 10 MG TABLET PO SCH (07:32)
[2018-04-13] MEDS: MULTIVITAMIN with MINERAL TABLET. PO SCH (07:33)
[2018-04-13] MEDS: LIDOCAINE (700MG/PATCH) PATCH. TD SCH (07:33)
[2018-04-13] MEDS: ENOXAPARIN 40 MG/0.4 ML SYRINGE. SQ SCH (07:34)
[2018-04-13] MEDS: BUDESONIDE 0.5 MG/2 ML NEBU NEB SCH ×2 (09:49→20:11)
[2018-04-13] MEDS: QUEtiapine 25 MG TABLET. PO SCH (11:35)
[2018-04-13 16:07] VITALS: BP 136/76
[2018-04-13] MEDS: HYDROcodone/APAP 5/325MG 1 TAB TABLET PO PRN (18:22)
[2018-04-13] MEDS: PATCH REMOVAL. MC SCH (21:00)
[2018-04-13] MEDS: ATORVASTATIN CALCIUM 20 MG TABLET PO SCH (21:11)
[2018-04-13] MEDS: DONEPEZIL HCL 10 MG TABLET PO SCH (21:11)
--- NOTE | 2018-04-13 22:38 | PDOC ---
Exam Note: Akshat Note: Please also refer to the separate dictated note~for this date of service dictated separately.~Patient seen individually. Discussed the patient with Nursing staff reviewed the chart.~Reviewed interim history and current functioning. Reviewed vital signs,~Labs/ Radiology~and current medications noted below. Continue current treatment with the changes noted in the dictated addendum note Assessment: Vital Signs: Vital Signs Date Time Temp Pulse Resp B/P (MAP) Pulse Ox O2 Delivery O2 Flow Rate FiO2 04/13/18 20:17 95 Nasal Cannula 2.0 04/13/18 18:22 18 04/13/18 16:43 67 136/76 04/13/18 16:07 98.2 I&O Intake and Output 04/13/18 07:01 Intake Total 920 ml Balance 920 ml Intake Oral 920 ml Current Medications: Meds: Current Medications Multi-Ingredient Ointment (Analgesic [place]) 1 attila PRN QID PRN TP MUSCLE PAIN; Start 03/27/18 at 18:45 Al Hydroxide/Mg Hydroxide (Mylanta Plus Xs) 15 ml PRN AFTMEALHC PRN PO DYSPEPSIA; Start 03/27/18 at 18:45 Magnesium Hydroxide (Milk Of Magnesia) 2,400 mg PRN QHS PRN PO CONSTIPATION; Start 03/27/18 at 18:45 Aspirin (Aspirin Enteric Coated) 325 mg DAILY PO Last administered on 04/13/18at 07:31; Start 03/28/18 at 09:00 Atorvastatin Calcium (Lipitor) 20 mg QHS PO Last administered on 04/13/18at 21:11 ; Start 03/27/18 at 21:00 Estrogens Conjugated (Premarin) 0.5 attila PRN DAILY PRN VG vaginal dryness; Start 03/27/18 at 19:15 Acetaminophen/ Hydrocodone Bitart (Lortab 5/325) 1 tab PRN Q12HR PRN PO PAIN Last administered on 03/30/18at 09:06; Start 03/27/18 at 19:15; Stop 03/30/18 at 15:02; Status DC Ipratropium [place] (Atrovent) 0.2 mg PRN Q6HRS PRN IH SHORTNESS OF BREATH; Start 03/27/18 at 19:15 Levothyroxine Sodium (Synthroid) 75 mcg DAILYAC PO Last administered on at 08:40; Start 03/28/18 at 07:30; Stop 03/28/18 at 12:26; Status DC Lisinopril (Prinivil) 10 mg DAILY PO Last administered on 04/13/18 07:32; Start 03/28/18 at 09:00 Acetaminophen (Tylenol) 650 mg PRN Q6HRS PRN PO PAIN / TEMP Last administered on 04/10/18 06:01; Start 03/27/18 at 19:45 Non-Formulary Medication (Albuterol Sulfate (Albuterol Sulfate Conc Neb Soln)) 2.5 mg PRN Q6HRS PRN NEB SHORTNESS OF BREATH; Start 03/27/18 at 19:15; Status UNV Amlodipine Besylate (Norvasc) 10 mg DAILY PO Last administered on 03/31/18at 08 :38; Start 03/28/18 at 09:00; Stop 03/31/18 at 12:27; Status DC Non-Formulary Medication (Budesonide/ Formoterol Fumarate (Symbicort 160-4.5 Mcg Inhaler)) 2 puff BID IH ; Start 03/27/18 at 21:00; Status UNV Carvedilol (Coreg) 6.25 mg BIDWMEALS PO Last administered on 04/13/18 16:43; Start 03/27/18 at 20:00 Divalproex Sodium (Depakote Er) 750 mg QHS PO Last administered on 03/27/18at 20:53; Start 03/27/18 at 21:00; Stop 03/28/18 at 21:13; Status DC Docusate Sodium (Colace) 100 mg PRN DAILY PRN PO HARD STOOLS; Start 03/27/18 at 19:45 Donepezil HCl (Aricept) 10 mg QHS PO Last administered on 04/13/18 21:11; Start 03/27/18 at 21:00 Enoxaparin Sodium (Lovenox 40mg Syringe) 40 mg DAILY SQ Last administered on 07:34; Start 03/28/18 at 09:00 Hydralazine HCl (Apresoline) 10 mg TID PO Last administered on 03/31/18at 08:39 ; Start 03/27/18 at 21:00; Stop 03/31/18 at 12:27; Status DC Multivitamins/ Calcium (Thera-M Plus) 1 tab DAILY PO Last administered on 07:33; Start 03/28/18 at 09:00 Olanzapine (ZyPREXA) 5 mg PRN DAILY PRN PO ANXIETY/AGITATION Last administered on 03/29/18at 10:50; Start 03/28/18 at 09:00 Pantoprazole Sodium (Protonix) 40 mg DAILYAC PO Last administered on 04/13/18 07:31; Start 03/28/18 at 07:30 Phenazopyridine HCl (Pyridium) 100 mg PRN TID PRN PO URINARY PAIN; Start 03/27 at 19:45 Polyethylene Glycol (miraLAX) 17 gm PRN BID PRN PO CONSTIPATION; Start at 09:00 Sodium Chloride (Saline Mist Nasal) 1 attila QID NS ; Start 03/27/18 at 21:00; Status Cancel Trazodone HCl (Desyrel) 25 mg PRN BID PRN PO ANXIETY/AGITATION; Start at 19:45 Trazodone HCl (Desyrel) 50 mg PRN QHS PRN PO INSOMNIA; Start 03/27/18 at 19:45 Lidocaine (Lidoderm) 1 patch DAILY TD Last administered on 04/13/18 07:33; Start 03/28/18 at 09:00 Multivitamins/ Minerals (I-Angelo) 1 tab DAILY PO Last administered on 04/13/18 07:32; Start 03/28/18 at 09:00 Miscellaneous (Lidoderm Patch Removal) 1 ea QHS MC Last administered on 21:00; Start 03/27/18 at 21:00 Albuterol Sulfate (Ventolin) 2.5 mg PRN Q6HRS PRN NEB SHORTNESS OF BREATH; Start 03/27/18 at 19:45 Albuterol Sulfate (Ventolin) 2.5 mg RTQID NEB Last administered on 04/13/18 20: 11; Start 03/27/18 at 20:00 Budesonide (Pulmicort) 0.5 mg RTBID NEB Last administered on 04/13/18 20:11; Start 03/27/18 at 20:00 Sodium Chloride ([place] Saline Nasal) 2 attila QID NS ; Start 03/27/18 at 21:00; Stop 03/28/18 at 13:08; Status DC Levothyroxine Sodium (Synthroid) 75 mcg DAILY06 PO Last administered on 05:45; Start 03/29/18 at 06:00 Sodium Chloride (Saline Mist Nasal) 1 attila PRN QID PRN NS NASAL CONGESTION; Start 03/28/18 at 13:15 Divalproex Sodium (Depakote Sprinkles) 750 mg HS PO Last administered on at 20:20; Start 03/28/18 at 21:30; Stop 03/30/18 at 14:27; Status DC Sertraline HCl (Zoloft) 25 mg DAILY PO Last administered on 03/31/18at 08:39; Start 03/29/18 at 09:00; Stop 03/31/18 at 09:01; Status DC Sertraline HCl (Zoloft) 50 mg DAILY PO Last administered on 04/13/18 07:32; Start 04/01/18 at 09:00 Divalproex Sodium (Depakote Sprinkles) 500 mg BID94 PO Last administered on at 07:55; Start 03/30/18 at 09:00; Stop 03/30/18 at 14:27; Status DC Quetiapine Fumarate (SEROquel) 12.5 mg 1300 PO Last administered on 04/13/18 11 :35; Start 03/30/18 at 13:00 Divalproex Sodium (Depakote Sprinkles) 500 mg BID PO Last administered on 04/01at 09:59; Start 03/30/18 at 21:00; Stop 04/01/18 at 17:43; Status DC Acetaminophen/ Hydrocodone Bitart (Lortab 5/325) 1 tab PRN Q6HRS PRN PO PAIN Last administered on 04/13/18 18:22; Start 03/30/18 at 15:15 Olanzapine (ZyPREXA ZYDIS) 2.5 mg PRN Q2HR PRN PO PSYCHOSIS; Start 03/30/18 at 19:15 Divalproex Sodium (Depakote Sprinkles) 625 mg BID PO Last administered on 21:11; Start 04/01/18 at 21:00 Ondansetron HCl (Zofran Odt) 4 mg PRN Q8HRS PRN PO NAUSEA/VOMITING Last administered on 04/09/18at 08:30; Start 04/09/18 at 08:30 Active Scripts Active Reported [occuvite] 1 Tab PO DAILY Pyridium (Phenazopyridine Hcl) 100 Mg Tablet 100 Mg PO PRN TID PRN Trazodone Hcl 50 Mg Tablet 25 Mg PO PRN QHS PRN Premarin (Estrogens, Conjugated) 30 Gm Cream.appl 0.5 Gm VG PRN DAILY PRN Multivitamins (Multivitamin) 1 Each Tablet 1 Tab PO DAILY Trazodone Hcl 50 Mg Tablet 25 Mg PO BID PRN [place] Saline (Sodium Chloride) 50 Ml Drops 2 Drop NS QID Miralax (Polyethylene Glycol 3350) 17 Gm Powd.pack 17 Gm PO PRN BID PRN Protonix (Pantoprazole Sodium) 40 Mg Tablet. 40 Mg PO DAILY Zyprexa (Olanzapine) 5 Mg Tablet 5 Mg PO PRN DAILY PRN Lisinopril 10 Mg Tablet 10 Mg PO DAILY [lidoderm] 1 Patch TD DAILY Levothyroxine Sodium 75 Mcg Tablet 75 Mcg PO DAILYAC Ipratropium [place] 0.2 Mg/1 Ml Solution 0.2 Mg IH PRN Q6HRS PRN Hydrocodone-Apap 5-325 (Hydrocodone Bit/Acetaminophen) 1 Each Tablet 1 Tab PO PRN Q12HR PRN Hydralazine Hcl 10 Mg Tablet 10 Mg PO TID Lovenox (Enoxaparin Sodium) 40 Mg/0.4 Ml Disp.syrin 40 Mg SQ DAILY Donepezil Hcl 10 Mg Tablet 10 Mg PO HS Colace (Docusate Sodium) 100 Mg Capsule 100 Mg PO PRN DAILY PRN Depakote Er (Divalproex Sodium) 500 Mg Tab.er.24h 750 Mg PO HS Coreg (Carvedilol) 6.25 Mg Tablet 6.25 Mg PO BIDWMEALS Symbicort 160-4.5 Mcg Inhaler (Budesonide/Formoterol Fumarate) 10.2 Gm Hfa.aer.ad 2 Puff IH BID Lipitor (Atorvastatin Calcium) 20 Mg Tablet 20 Mg PO QHS Aspirin Ec (Aspirin) 325 Mg Tablet. 325 Mg PO DAILY Amlodipine Besylate 10 Mg Tablet 10 Mg PO DAILY Albuterol Sulfate Conc Neb Soln (Albuterol Sulfate) 2.5 Mg/0.5 Ml Vial.neb 2.5 Mg NEB PRN Q6HRS PRN Acetaminophen 650 Mg/20.3 Ml Solution 650 Mg PO PRN Q6HRS PRN I have reviewed the current psychotropics carefully including drug interactions. Risk benefit ratio favors no change other than as noted in my dictated progress note. Diagnosis: Problems: (1) Anxiety disorder (2) Major depressive disorder, recurrent episode (3) Psychosis, atypical (4) Impulse control disorder GWEN ROY MD Apr 13, 2018 22:38
--- NOTE | 2018-04-13 23:50 | PN ---
DATE: 04/12/2018 PSYCHIATRIC PROGRESS NOTE This late entry 04/12/2018 covers elements, not covered in my initial note. SUBJECTIVE: I met with the patient in the evening. The patient slept 5-1/2 hours previous night. She remains somewhat withdrawn, refused lunch, did eat breakfast and dinner. REVIEW OF SYSTEMS: Ambulation impaired, in wheelchair, shortness of breath, on O2 supplements. No CV, , GI, eye system symptoms on review. MENTAL STATUS EXAM: Oriented to herself and situation. Speech has some latency, coherent. Abstraction fair, computation impaired, language function intact, attention span short. Mood and affect, somewhat anxious, at times labile, but improved. LABORATORY DATA: Reviewed. IMPRESSION: Unchanged from initial note. PLAN: No change from initial note. MAN Rk ROY MD DR: HERMELINDA/alexandra JOB#: [id number] / [id number]
[2018-04-14] MEDS: ALBUTEROL SULFATE 2.5 MG/3 ML NEBU. NEB SCH ×4 (05:23→20:08)
[2018-04-14 05:38] VITALS: BP 153/85
[2018-04-14] MEDS: LEVOTHYROXINE 75 MCG TABLET PO SCH (05:51)
[2018-04-14] MEDS: ENOXAPARIN 40 MG/0.4 ML SYRINGE. SQ SCH (08:15)
[2018-04-14] MEDS: ASPIRIN ENTERIC COATED 325 MG TABLET.DR. PO SCH (08:15)
[2018-04-14] MEDS: CARVEDILOL 6.25 MG TABLET PO SCH ×2 (08:16→16:14)
[2018-04-14] MEDS: DIVALPROEX 125 MG CAP.SPRINK PO SCH ×2 (08:16→20:11)
[2018-04-14] MEDS: LISINOPRIL 10 MG TABLET PO SCH (08:16)
[2018-04-14] MEDS: MULTIVITAMIN I-VITE TABLET. PO SCH (08:17)
[2018-04-14] MEDS: PANTOPRAZOLE 40 MG TABLET. PO SCH (08:17)
[2018-04-14] MEDS: MULTIVITAMIN with MINERAL TABLET. PO SCH (08:17)
[2018-04-14] MEDS: SERTRALINE 25 MG TABLET. PO SCH (08:17)
[2018-04-14] MEDS: LIDOCAINE (700MG/PATCH) PATCH. TD SCH (08:20)
[2018-04-14] MEDS: BUDESONIDE 0.5 MG/2 ML NEBU NEB SCH ×2 (11:26→20:08)
[2018-04-14] MEDS: QUEtiapine 25 MG TABLET. PO SCH (12:32)
[2018-04-14] MEDS: HYDROcodone/APAP 5/325MG 1 TAB TABLET PO PRN ×2 (12:39→21:33)
[2018-04-14 15:47] VITALS: BP 152/83
[2018-04-14] MEDS: PATCH REMOVAL. MC SCH (20:11)
[2018-04-14] MEDS: ATORVASTATIN CALCIUM 20 MG TABLET PO SCH (20:11)
[2018-04-14] MEDS: DONEPEZIL HCL 10 MG TABLET PO SCH (20:12)
--- NOTE | 2018-04-14 22:58 | PDOC ---
Exam Note: Akshat Note: Please also refer to the separate dictated note~for this date of service dictated separately.~Patient seen individually. Discussed the patient with Nursing staff reviewed the chart.~Reviewed interim history and current functioning. Reviewed vital signs,~Labs/ Radiology~and current medications noted below. Continue current treatment with the changes noted in the dictated addendum note Assessment: Vital Signs: Vital Signs Date Time Temp Pulse Resp B/P (MAP) Pulse Ox O2 Delivery O2 Flow Rate FiO2 04/14/18 21:33 Nasal Cannula 2.0 04/14/18 20:00 97 04/14/18 15:47 99.1 64 20 152/83 (106) I&O Intake and Output 04/14/18 07:01 Intake Total 1200 ml Balance 1200 ml Intake Oral 1200 ml # Bowel Movements 2 Current Medications: Meds: Current Medications Multi-Ingredient Ointment (Analgesic [place]) 1 attila PRN QID PRN TP MUSCLE PAIN; Start 03/27/18 at 18:45 Al Hydroxide/Mg Hydroxide (Mylanta Plus Xs) 15 ml PRN AFTMEALHC PRN PO DYSPEPSIA; Start 03/27/18 at 18:45 Magnesium Hydroxide (Milk Of Magnesia) 2,400 mg PRN QHS PRN PO CONSTIPATION; Start 03/27/18 at 18:45 Aspirin (Aspirin Enteric Coated) 325 mg DAILY PO Last administered on 04/14/18at 08:15; Start 03/28/18 at 09:00 Atorvastatin Calcium (Lipitor) 20 mg QHS PO Last administered on 04/14/18at 20:11 ; Start 03/27/18 at 21:00 Estrogens Conjugated (Premarin) 0.5 attila PRN DAILY PRN VG vaginal dryness; Start 03/27/18 at 19:15 Acetaminophen/ Hydrocodone Bitart (Lortab 5/325) 1 tab PRN Q12HR PRN PO PAIN Last administered on 03/30/18at 09:06; Start 03/27/18 at 19:15; Stop 03/30/18 at 15:02; Status DC Ipratropium [place] (Atrovent) 0.2 mg PRN Q6HRS PRN IH SHORTNESS OF BREATH; Start 03/27/18 at 19:15 Levothyroxine Sodium (Synthroid) 75 mcg DAILYAC PO Last administered on at 08:40; Start 03/28/18 at 07:30; Stop 03/28/18 at 12:26; Status DC Lisinopril (Prinivil) 10 mg DAILY PO Last administered on 04/14/18 08:16; Start 03/28/18 at 09:00 Acetaminophen (Tylenol) 650 mg PRN Q6HRS PRN PO PAIN / TEMP Last administered on 04/10/18 06:01; Start 03/27/18 at 19:45 Non-Formulary Medication (Albuterol Sulfate (Albuterol Sulfate Conc Neb Soln)) 2.5 mg PRN Q6HRS PRN NEB SHORTNESS OF BREATH; Start 03/27/18 at 19:15; Status UNV Amlodipine Besylate (Norvasc) 10 mg DAILY PO Last administered on 03/31/18at 08 :38; Start 03/28/18 at 09:00; Stop 03/31/18 at 12:27; Status DC Non-Formulary Medication (Budesonide/ Formoterol Fumarate (Symbicort 160-4.5 Mcg Inhaler)) 2 puff BID IH ; Start 03/27/18 at 21:00; Status UNV Carvedilol (Coreg) 6.25 mg BIDWMEALS PO Last administered on 04/14/18 08:16; Start 03/27/18 at 20:00 Divalproex Sodium (Depakote Er) 750 mg QHS PO Last administered on 03/27/18at 20:53; Start 03/27/18 at 21:00; Stop 03/28/18 at 21:13; Status DC Docusate Sodium (Colace) 100 mg PRN DAILY PRN PO HARD STOOLS; Start 03/27/18 at 19:45 Donepezil HCl (Aricept) 10 mg QHS PO Last administered on 04/14/18 20:12; Start 03/27/18 at 21:00 Enoxaparin Sodium (Lovenox 40mg Syringe) 40 mg DAILY SQ Last administered on 08:15; Start 03/28/18 at 09:00 Hydralazine HCl (Apresoline) 10 mg TID PO Last administered on 03/31/18at 08:39 ; Start 03/27/18 at 21:00; Stop 03/31/18 at 12:27; Status DC Multivitamins/ Calcium (Thera-M Plus) 1 tab DAILY PO Last administered on 08:17; Start 03/28/18 at 09:00 Olanzapine (ZyPREXA) 5 mg PRN DAILY PRN PO ANXIETY/AGITATION Last administered on 03/29/18at 10:50; Start 03/28/18 at 09:00 Pantoprazole Sodium (Protonix) 40 mg DAILYAC PO Last administered on 04/14/18 08:17; Start 03/28/18 at 07:30 Phenazopyridine HCl (Pyridium) 100 mg PRN TID PRN PO URINARY PAIN; Start 03/27 at 19:45 Polyethylene Glycol (miraLAX) 17 gm PRN BID PRN PO CONSTIPATION; Start at 09:00 Sodium Chloride (Saline Mist Nasal) 1 attila QID NS ; Start 03/27/18 at 21:00; Status Cancel Trazodone HCl (Desyrel) 25 mg PRN BID PRN PO ANXIETY/AGITATION; Start at 19:45 Trazodone HCl (Desyrel) 50 mg PRN QHS PRN PO INSOMNIA; Start 03/27/18 at 19:45 Lidocaine (Lidoderm) 1 patch DAILY TD Last administered on 04/14/18 08:20; Start 03/28/18 at 09:00 Multivitamins/ Minerals (I-Angelo) 1 tab DAILY PO Last administered on 04/14/18 08:17; Start 03/28/18 at 09:00 Miscellaneous (Lidoderm Patch Removal) 1 ea QHS MC Last administered on 20:11; Start 03/27/18 at 21:00 Albuterol Sulfate (Ventolin) 2.5 mg PRN Q6HRS PRN NEB SHORTNESS OF BREATH; Start 03/27/18 at 19:45 Albuterol Sulfate (Ventolin) 2.5 mg RTQID NEB Last administered on 04/14/18 20: 08; Start 03/27/18 at 20:00 Budesonide (Pulmicort) 0.5 mg RTBID NEB Last administered on 04/14/18 20:08; Start 03/27/18 at 20:00 Sodium Chloride ([place] Saline Nasal) 2 attila QID NS ; Start 03/27/18 at 21:00; Stop 03/28/18 at 13:08; Status DC Levothyroxine Sodium (Synthroid) 75 mcg DAILY06 PO Last administered on 05:51; Start 03/29/18 at 06:00 Sodium Chloride (Saline Mist Nasal) 1 attila PRN QID PRN NS NASAL CONGESTION; Start 03/28/18 at 13:15 Divalproex Sodium (Depakote Sprinkles) 750 mg HS PO Last administered on at 20:20; Start 03/28/18 at 21:30; Stop 03/30/18 at 14:27; Status DC Sertraline HCl (Zoloft) 25 mg DAILY PO Last administered on 03/31/18at 08:39; Start 03/29/18 at 09:00; Stop 03/31/18 at 09:01; Status DC Sertraline HCl (Zoloft) 50 mg DAILY PO Last administered on 04/14/18 08:17; Start 04/01/18 at 09:00 Divalproex Sodium (Depakote Sprinkles) 500 mg BID94 PO Last administered on at 07:55; Start 03/30/18 at 09:00; Stop 03/30/18 at 14:27; Status DC Quetiapine Fumarate (SEROquel) 12.5 mg 1300 PO Last administered on 04/14/18 12 :32; Start 03/30/18 at 13:00 Divalproex Sodium (Depakote Sprinkles) 500 mg BID PO Last administered on 04/01at 09:59; Start 03/30/18 at 21:00; Stop 04/01/18 at 17:43; Status DC Acetaminophen/ Hydrocodone Bitart (Lortab 5/325) 1 tab PRN Q6HRS PRN PO PAIN Last administered on 04/14/18 21:33; Start 03/30/18 at 15:15 Olanzapine (ZyPREXA ZYDIS) 2.5 mg PRN Q2HR PRN PO PSYCHOSIS; Start 03/30/18 at 19:15 Divalproex Sodium (Depakote Sprinkles) 625 mg BID PO Last administered on 20:11; Start 04/01/18 at 21:00 Ondansetron HCl (Zofran Odt) 4 mg PRN Q8HRS PRN PO NAUSEA/VOMITING Last administered on 04/09/18at 08:30; Start 04/09/18 at 08:30 Active Scripts Active Reported [occuvite] 1 Tab PO DAILY Pyridium (Phenazopyridine Hcl) 100 Mg Tablet 100 Mg PO PRN TID PRN Trazodone Hcl 50 Mg Tablet 25 Mg PO PRN QHS PRN Premarin (Estrogens, Conjugated) 30 Gm Cream.appl 0.5 Gm VG PRN DAILY PRN Multivitamins (Multivitamin) 1 Each Tablet 1 Tab PO DAILY Trazodone Hcl 50 Mg Tablet 25 Mg PO BID PRN [place] Saline (Sodium Chloride) 50 Ml Drops 2 Drop NS QID Miralax (Polyethylene Glycol 3350) 17 Gm Powd.pack 17 Gm PO PRN BID PRN Protonix (Pantoprazole Sodium) 40 Mg Tablet.dr 40 Mg PO DAILY Zyprexa (Olanzapine) 5 Mg Tablet 5 Mg PO PRN DAILY PRN Lisinopril 10 Mg Tablet 10 Mg PO DAILY [lidoderm] 1 Patch TD DAILY Levothyroxine Sodium 75 Mcg Tablet 75 Mcg PO DAILYAC Ipratropium [place] 0.2 Mg/1 Ml Solution 0.2 Mg IH PRN Q6HRS PRN Hydrocodone-Apap 5-325 (Hydrocodone Bit/Acetaminophen) 1 Each Tablet 1 Tab PO PRN Q12HR PRN Hydralazine Hcl 10 Mg Tablet 10 Mg PO TID Lovenox (Enoxaparin Sodium) 40 Mg/0.4 Ml Disp.syrin 40 Mg SQ DAILY Donepezil Hcl 10 Mg Tablet 10 Mg PO HS Colace (Docusate Sodium) 100 Mg Capsule 100 Mg PO PRN DAILY PRN Depakote Er (Divalproex Sodium) 500 Mg Tab.er.24h 750 Mg PO HS Coreg (Carvedilol) 6.25 Mg Tablet 6.25 Mg PO BIDWMEALS Symbicort 160-4.5 Mcg Inhaler (Budesonide/Formoterol Fumarate) 10.2 Gm Hfa.aer.ad 2 Puff IH BID Lipitor (Atorvastatin Calcium) 20 Mg Tablet 20 Mg PO QHS Aspirin Ec (Aspirin) 325 Mg Tablet.dr 325 Mg PO DAILY Amlodipine Besylate 10 Mg Tablet 10 Mg PO DAILY Albuterol Sulfate Conc Neb Soln (Albuterol Sulfate) 2.5 Mg/0.5 Ml Vial.neb 2.5 Mg NEB PRN Q6HRS PRN Acetaminophen 650 Mg/20.3 Ml Solution 650 Mg PO PRN Q6HRS PRN I have reviewed the current psychotropics carefully including drug interactions. Risk benefit ratio favors no change other than as noted in my dictated progress note. Diagnosis: Problems: (1) Anxiety disorder (2) Major depressive disorder, recurrent episode (3) Psychosis, atypical (4) Impulse control disorder GWEN ROY MD Apr 14, 2018 22:58
--- NOTE | 2018-04-15 01:12 | PN ---
DATE: 04/13/2018 PSYCHIATRIC PROGRESS NOTE This is late entry 04/13/2018 covers elements not covered in my initial note. SUBJECTIVE: I met with the patient in the evening. The patient has been a little more interactive, appropriate, slept 6 hours previous night. The facility visited her social service staff, arranging transition. REVIEW OF SYSTEMS: Shortness of breath, on O2 supplements, impaired ambulation, in wheelchair. No CV, , GI, eye system symptoms on review. MENTAL STATUS EXAM: Oriented to herself and situation. Speech has some latency, coherent. Abstraction fair, computation impaired, language function intact, attention span short. Mood and affect improved. LABORATORY DATA: Reviewed. IMPRESSION: Bipolar 1 disorder, unspecified; major neurocognitive disorder, early Alzheimer, vascular with delusion, major depressive disorder, in partial remission; anxiety disorder, unspecified. PLAN: No change from initial note. MAN Rk ROY MD DR: HERMELINDA/alexandra JOB#: [id number] / [id number]
[2018-04-15] MEDS: ALBUTEROL SULFATE 2.5 MG/3 ML NEBU. NEB SCH ×4 (05:02→20:00)
[2018-04-15 05:56] VITALS: BP 146/72
[2018-04-15] MEDS: LEVOTHYROXINE 75 MCG TABLET PO SCH (06:00)
[2018-04-15] MEDS: BUDESONIDE 0.5 MG/2 ML NEBU NEB SCH ×2 (08:00→20:00)
[2018-04-15] MEDS: LIDOCAINE (700MG/PATCH) PATCH. TD SCH (09:14)
[2018-04-15] MEDS: PANTOPRAZOLE 40 MG TABLET. PO SCH (09:15)
[2018-04-15] MEDS: ASPIRIN ENTERIC COATED 325 MG TABLET.DR. PO SCH (09:15)
[2018-04-15] MEDS: ENOXAPARIN 40 MG/0.4 ML SYRINGE. SQ SCH (09:15)
[2018-04-15] MEDS: DIVALPROEX 125 MG CAP.SPRINK PO SCH ×2 (09:15→20:27)
[2018-04-15] MEDS: MULTIVITAMIN with MINERAL TABLET. PO SCH (09:15)
[2018-04-15] MEDS: SERTRALINE 25 MG TABLET. PO SCH (09:15)
[2018-04-15] MEDS: MULTIVITAMIN I-VITE TABLET. PO SCH (09:15)
[2018-04-15] MEDS: LISINOPRIL 10 MG TABLET PO SCH (09:16)
[2018-04-15] MEDS: CARVEDILOL 6.25 MG TABLET PO SCH ×2 (09:16→17:05)
[2018-04-15] MEDS: QUEtiapine 25 MG TABLET. PO SCH (12:38)
[2018-04-15 16:21] VITALS: BP 153/84
--- NOTE | 2018-04-15 17:28 | PN ---
DATE: 04/14/2018 PSYCHIATRIC PROGRESS NOTE This late entry 04/14/2017 covers elements not covered in my initial note. SUBJECTIVE: I met with the patient in the evening. The patient slept 7 hours previous night. She was denied at [facility] and was somewhat upset about this as I met with her in the evening. We processed this and I reassured her that the social service staff is looking at alternate placements. She did well at night and reasonably well during the day. She seems less anxious, less irritable. REVIEW OF SYSTEMS: Shortness of breath on O2 supplements, impaired ambulation, in wheelchair. No CV, , GI, eye system symptoms on review. MENTAL STATUS EXAM: Oriented to herself and situation. Speech has some latency, coherent. Abstraction fair, computation impaired, language function intact, attention span short. Mood and affect still somewhat anxious and she was obsessed. She called me back a couple of times because she had further questions. She was afraid and concerned that the social service staff are looking for other placements and her son, Herber gets her social security check, but that he would part with It. I will keep it all to himself and then how would her placement be paid for. I reassured her social service staff is looking into it. No suicidal or homicidal ideation. Attention span short. Language function intact. Overall, showing improvement. LABORATORY DATA: Reviewed. IMPRESSION: History of bipolar 1 disorder, mixed; major neurocognitive disorder, early Alzheimer, vascular with depression; anxiety disorder, unspecified. Rest unchanged. PLAN: Continue psychotropics from initial note and we addressed this at some length. MAN Rk ROY MD DR: HERMELINDA/alexandra JOB#: [id number] / [id number]
[2018-04-15] MEDS: DONEPEZIL HCL 10 MG TABLET PO SCH (20:27)
[2018-04-15] MEDS: ATORVASTATIN CALCIUM 20 MG TABLET PO SCH (20:27)
[2018-04-15] MEDS: HYDROcodone/APAP 5/325MG 1 TAB TABLET PO PRN (20:29)
[2018-04-15] MEDS: PATCH REMOVAL. MC SCH (20:34)
--- NOTE | 2018-04-15 22:47 | PDOC ---
Exam Note: Akshat Note: Please also refer to the separate dictated note~for this date of service dictated separately.~Patient seen individually. Discussed the patient with Nursing staff reviewed the chart.~Reviewed interim history and current functioning. Reviewed vital signs,~Labs/ Radiology~and current medications noted below. Continue current treatment with the changes noted in the dictated addendum note Assessment: Vital Signs: Vital Signs Date Time Temp Pulse Resp B/P (MAP) Pulse Ox O2 Delivery O2 Flow Rate FiO2 04/15/18 20:29 Nasal Cannula 04/15/18 19:55 98 2.0 04/15/18 17:05 67 153/84 04/15/18 16:21 98.3 20 I&O Intake and Output 04/15/18 07:01 Intake Total 1440 ml Balance 1440 ml Intake Oral 1440 ml Current Medications: Meds: Current Medications Multi-Ingredient Ointment (Analgesic [place]) 1 attila PRN QID PRN TP MUSCLE PAIN; Start 03/27/18 at 18:45 Al Hydroxide/Mg Hydroxide (Mylanta Plus Xs) 15 ml PRN AFTMEALHC PRN PO DYSPEPSIA; Start 03/27/18 at 18:45 Magnesium Hydroxide (Milk Of Magnesia) 2,400 mg PRN QHS PRN PO CONSTIPATION; Start 03/27/18 at 18:45 Aspirin (Aspirin Enteric Coated) 325 mg DAILY PO Last administered on 04/15/18at 09:15; Start 03/28/18 at 09:00 Atorvastatin Calcium (Lipitor) 20 mg QHS PO Last administered on 04/15/18at 20:27 ; Start 03/27/18 at 21:00 Estrogens Conjugated (Premarin) 0.5 attila PRN DAILY PRN VG vaginal dryness; Start 03/27/18 at 19:15 Acetaminophen/ Hydrocodone Bitart (Lortab 5/325) 1 tab PRN Q12HR PRN PO PAIN Last administered on 03/30/18at 09:06; Start 03/27/18 at 19:15; Stop 03/30/18 at 15:02; Status DC Ipratropium [place] (Atrovent) 0.2 mg PRN Q6HRS PRN IH SHORTNESS OF BREATH; Start 03/27/18 at 19:15 Levothyroxine Sodium (Synthroid) 75 mcg DAILYAC PO Last administered on at 08:40; Start 03/28/18 at 07:30; Stop 03/28/18 at 12:26; Status DC Lisinopril (Prinivil) 10 mg DAILY PO Last administered on 04/15/18 09:16; Start 03/28/18 at 09:00 Acetaminophen (Tylenol) 650 mg PRN Q6HRS PRN PO PAIN / TEMP Last administered on 04/10/18 06:01; Start 03/27/18 at 19:45 Non-Formulary Medication (Albuterol Sulfate (Albuterol Sulfate Conc Neb Soln)) 2.5 mg PRN Q6HRS PRN NEB SHORTNESS OF BREATH; Start 03/27/18 at 19:15; Status UNV Amlodipine Besylate (Norvasc) 10 mg DAILY PO Last administered on 03/31/18at 08 :38; Start 03/28/18 at 09:00; Stop 03/31/18 at 12:27; Status DC Non-Formulary Medication (Budesonide/ Formoterol Fumarate (Symbicort 160-4.5 Mcg Inhaler)) 2 puff BID IH ; Start 03/27/18 at 21:00; Status UNV Carvedilol (Coreg) 6.25 mg BIDWMEALS PO Last administered on 04/15/18 17:05; Start 03/27/18 at 20:00 Divalproex Sodium (Depakote Er) 750 mg QHS PO Last administered on 03/27/18at 20:53; Start 03/27/18 at 21:00; Stop 03/28/18 at 21:13; Status DC Docusate Sodium (Colace) 100 mg PRN DAILY PRN PO HARD STOOLS; Start 03/27/18 at 19:45 Donepezil HCl (Aricept) 10 mg QHS PO Last administered on 04/15/18 20:27; Start 03/27/18 at 21:00 Enoxaparin Sodium (Lovenox 40mg Syringe) 40 mg DAILY SQ Last administered on 09:15; Start 03/28/18 at 09:00 Hydralazine HCl (Apresoline) 10 mg TID PO Last administered on 03/31/18at 08:39 ; Start 03/27/18 at 21:00; Stop 03/31/18 at 12:27; Status DC Multivitamins/ Calcium (Thera-M Plus) 1 tab DAILY PO Last administered on 09:15; Start 03/28/18 at 09:00 Olanzapine (ZyPREXA) 5 mg PRN DAILY PRN PO ANXIETY/AGITATION Last administered on 03/29/18at 10:50; Start 03/28/18 at 09:00 Pantoprazole Sodium (Protonix) 40 mg DAILYAC PO Last administered on 04/15/18 09:15; Start 03/28/18 at 07:30 Phenazopyridine HCl (Pyridium) 100 mg PRN TID PRN PO URINARY PAIN; Start 03/27 at 19:45 Polyethylene Glycol (miraLAX) 17 gm PRN BID PRN PO CONSTIPATION; Start at 09:00 Sodium Chloride (Saline Mist Nasal) 1 attila QID NS ; Start 03/27/18 at 21:00; Status Cancel Trazodone HCl (Desyrel) 25 mg PRN BID PRN PO ANXIETY/AGITATION; Start at 19:45 Trazodone HCl (Desyrel) 50 mg PRN QHS PRN PO INSOMNIA; Start 03/27/18 at 19:45 Lidocaine (Lidoderm) 1 patch DAILY TD Last administered on 04/15/18 09:14; Start 03/28/18 at 09:00 Multivitamins/ Minerals (I-Angelo) 1 tab DAILY PO Last administered on 04/15/18 09:15; Start 03/28/18 at 09:00 Miscellaneous (Lidoderm Patch Removal) 1 ea QHS MC Last administered on 20:34; Start 03/27/18 at 21:00 Albuterol Sulfate (Ventolin) 2.5 mg PRN Q6HRS PRN NEB SHORTNESS OF BREATH; Start 03/27/18 at 19:45 Albuterol Sulfate (Ventolin) 2.5 mg RTQID NEB Last administered on 04/15/18 20: 00; Start 03/27/18 at 20:00 Budesonide (Pulmicort) 0.5 mg RTBID NEB Last administered on 04/15/18 20:00; Start 03/27/18 at 20:00 Sodium Chloride ([place] Saline Nasal) 2 attila QID NS ; Start 03/27/18 at 21:00; Stop 03/28/18 at 13:08; Status DC Levothyroxine Sodium (Synthroid) 75 mcg DAILY06 PO Last administered on 05:51; Start 03/29/18 at 06:00 Sodium Chloride (Saline Mist Nasal) 1 attila PRN QID PRN NS NASAL CONGESTION; Start 03/28/18 at 13:15 Divalproex Sodium (Depakote Sprinkles) 750 mg HS PO Last administered on at 20:20; Start 03/28/18 at 21:30; Stop 03/30/18 at 14:27; Status DC Sertraline HCl (Zoloft) 25 mg DAILY PO Last administered on 03/31/18at 08:39; Start 03/29/18 at 09:00; Stop 03/31/18 at 09:01; Status DC Sertraline HCl (Zoloft) 50 mg DAILY PO Last administered on 04/15/18 09:15; Start 04/01/18 at 09:00 Divalproex Sodium (Depakote Sprinkles) 500 mg BID94 PO Last administered on at 07:55; Start 03/30/18 at 09:00; Stop 03/30/18 at 14:27; Status DC Quetiapine Fumarate (SEROquel) 12.5 mg 1300 PO Last administered on 04/15/18 12 :38; Start 03/30/18 at 13:00 Divalproex Sodium (Depakote Sprinkles) 500 mg BID PO Last administered on 04/01at 09:59; Start 03/30/18 at 21:00; Stop 04/01/18 at 17:43; Status DC Acetaminophen/ Hydrocodone Bitart (Lortab 5/325) 1 tab PRN Q6HRS PRN PO PAIN Last administered on 04/15/18 20:29; Start 03/30/18 at 15:15 Olanzapine (ZyPREXA ZYDIS) 2.5 mg PRN Q2HR PRN PO PSYCHOSIS; Start 03/30/18 at 19:15 Divalproex Sodium (Depakote Sprinkles) 625 mg BID PO Last administered on 20:27; Start 04/01/18 at 21:00 Ondansetron HCl (Zofran Odt) 4 mg PRN Q8HRS PRN PO NAUSEA/VOMITING Last administered on 04/09/18at 08:30; Start 04/09/18 at 08:30 Active Scripts Active Reported [occuvite] 1 Tab PO DAILY Pyridium (Phenazopyridine Hcl) 100 Mg Tablet 100 Mg PO PRN TID PRN Trazodone Hcl 50 Mg Tablet 25 Mg PO PRN QHS PRN Premarin (Estrogens, Conjugated) 30 Gm Cream.appl 0.5 Gm VG PRN DAILY PRN Multivitamins (Multivitamin) 1 Each Tablet 1 Tab PO DAILY Trazodone Hcl 50 Mg Tablet 25 Mg PO BID PRN [place] Saline (Sodium Chloride) 50 Ml Drops 2 Drop NS QID Miralax (Polyethylene Glycol 3350) 17 Gm Powd.pack 17 Gm PO PRN BID PRN Protonix (Pantoprazole Sodium) 40 Mg Tablet. 40 Mg PO DAILY Zyprexa (Olanzapine) 5 Mg Tablet 5 Mg PO PRN DAILY PRN Lisinopril 10 Mg Tablet 10 Mg PO DAILY [lidoderm] 1 Patch TD DAILY Levothyroxine Sodium 75 Mcg Tablet 75 Mcg PO DAILYAC Ipratropium [place] 0.2 Mg/1 Ml Solution 0.2 Mg IH PRN Q6HRS PRN Hydrocodone-Apap 5-325 (Hydrocodone Bit/Acetaminophen) 1 Each Tablet 1 Tab PO PRN Q12HR PRN Hydralazine Hcl 10 Mg Tablet 10 Mg PO TID Lovenox (Enoxaparin Sodium) 40 Mg/0.4 Ml Disp.syrin 40 Mg SQ DAILY Donepezil Hcl 10 Mg Tablet 10 Mg PO HS Colace (Docusate Sodium) 100 Mg Capsule 100 Mg PO PRN DAILY PRN Depakote Er (Divalproex Sodium) 500 Mg Tab.er.24h 750 Mg PO HS Coreg (Carvedilol) 6.25 Mg Tablet 6.25 Mg PO BIDWMEALS Symbicort 160-4.5 Mcg Inhaler (Budesonide/Formoterol Fumarate) 10.2 Gm Hfa.aer.ad 2 Puff IH BID Lipitor (Atorvastatin Calcium) 20 Mg Tablet 20 Mg PO QHS Aspirin Ec (Aspirin) 325 Mg Tablet. 325 Mg PO DAILY Amlodipine Besylate 10 Mg Tablet 10 Mg PO DAILY Albuterol Sulfate Conc Neb Soln (Albuterol Sulfate) 2.5 Mg/0.5 Ml Vial.neb 2.5 Mg NEB PRN Q6HRS PRN Acetaminophen 650 Mg/20.3 Ml Solution 650 Mg PO PRN Q6HRS PRN I have reviewed the current psychotropics carefully including drug interactions. Risk benefit ratio favors no change other than as noted in my dictated progress note. Diagnosis: Problems: (1) Anxiety disorder (2) Major depressive disorder, recurrent episode (3) Psychosis, atypical (4) Impulse control disorder GWEN ROY MD Apr 15, 2018 22:47
[2018-04-16] MEDS: ALBUTEROL SULFATE 2.5 MG/3 ML NEBU. NEB SCH ×4 (04:55→19:55)
[2018-04-16 05:52] VITALS: BP 162/89
[2018-04-16] MEDS: LEVOTHYROXINE 75 MCG TABLET PO SCH (05:58)
[2018-04-16] MEDS: MULTIVITAMIN I-VITE TABLET. PO SCH (09:24)
[2018-04-16] MEDS: LISINOPRIL 10 MG TABLET PO SCH (09:24)
[2018-04-16] MEDS: LIDOCAINE (700MG/PATCH) PATCH. TD SCH (09:24)
[2018-04-16] MEDS: ASPIRIN ENTERIC COATED 325 MG TABLET.DR. PO SCH (09:25)
[2018-04-16] MEDS: DIVALPROEX 125 MG CAP.SPRINK PO SCH ×2 (09:25→19:31)
[2018-04-16] MEDS: PANTOPRAZOLE 40 MG TABLET. PO SCH (09:25)
[2018-04-16] MEDS: SERTRALINE 25 MG TABLET. PO SCH (09:25)
[2018-04-16] MEDS: MULTIVITAMIN with MINERAL TABLET. PO SCH (09:25)
[2018-04-16] MEDS: CARVEDILOL 6.25 MG TABLET PO SCH ×2 (09:25→14:52)
[2018-04-16] MEDS: ENOXAPARIN 40 MG/0.4 ML SYRINGE. SQ SCH (09:26)
[2018-04-16] MEDS: BUDESONIDE 0.5 MG/2 ML NEBU NEB SCH ×2 (10:11→19:55)
[2018-04-16] MEDS: ONDANSETRON ODT 4 MG TAB.RAPDIS PO PRN (10:50)
[2018-04-16] MEDS: HYDROcodone/APAP 5/325MG 1 TAB TABLET PO PRN (12:48)
[2018-04-16] MEDS: QUEtiapine 25 MG TABLET. PO SCH (14:51)
[2018-04-16 15:56] VITALS: BP 174/79
[2018-04-16 17:27] LABS: BASO % 1 % (0-3); EOS # 0.2 x10^3/uL (0.0-0.7); EOS % 3 % (0-3); HEMATOCRIT 38.8 % (36.0-47.0); LYMPH # 1.7 x10^3/uL (1.0-4.8); LYMPH % 25 % (24-48); MEAN CORPUSCULAR HEMOGLOBIN 31 pg (25-35); MEAN CORPUSCULAR HGB CONC 33 g/dL (31-37); MEAN CORPUSCULAR VOLUME 92 fL (79-100); MONO # 0.8 x10^3/uL (0.0-1.1); MONO % 12 % (0-9); NEUT % 59 % (31-73); PLATELET COUNT 173 x10^3/uL (140-400); RED BLOOD COUNT 4.22 x10^6/uL (3.50-5.40); RED CELL DISTRIBUTION WIDTH 14.6 % (11.5-14.5); WHITE BLOOD COUNT 6.6 x10^3/uL (4.0-11.0)
[2018-04-16 17:44] LABS: ALBUMIN 2.6 g/dL (3.4-5.0); ALBUMIN/GLOBULIN RATIO 0.7 (1.0-1.7); CALCIUM 8.3 mg/dL (8.5-10.1); CREATININE 0.7 mg/dL (0.6-1.0); GFR 79.2; POTASSIUM 4.4 mmol/L (3.5-5.1); TOTAL BILIRUBIN 0.2 mg/dL (0.2-1.0); TOTAL PROTEIN 6.3 g/dL (6.4-8.2)
--- NOTE | 2018-04-16 19:02 | RAD ---
Examination: CHEST AP ONLY History: Worsening shortness of breath Comparison/Correlation: None Findings: Portable upright frontal view of the chest was obtained. Dual-lead left-sided pacemaker is present. Heart size is normal. Small hiatal hernia is present. No infiltrate. Minimal right basilar discoid atelectasis is present. Mild retrocardiac linear atelectasis or scarring is present. Vertebroplasty changes are noted involving the spine. Right upper quadrant surgical clips are present. Advanced degenerative changes of the left glenohumeral joint. Impression: No focal infiltrate. Mild linear atelectasis involving the lung bases. Small hiatal hernia. Electronically signed by: Brandan Falcon MD (04/16/2018 6:58 PM) [facility]
[2018-04-16] MEDS: ATORVASTATIN CALCIUM 20 MG TABLET PO SCH (19:30)
[2018-04-16] MEDS: PATCH REMOVAL. MC SCH (19:30)
[2018-04-16] MEDS: DONEPEZIL HCL 10 MG TABLET PO SCH (19:30)
[2018-04-16] MEDS: levoFLOXacin 750 MG TABLET PO SCH (19:35)
[2018-04-16] MEDS: LACTOBACILLUS RHAMNOSUS GG 1 CAPSULE. PO SCH (19:35)
--- NOTE | 2018-04-16 20:10 | PN ---
DATE: 04/15/2018 PSYCHIATRIC PROGRESS NOTE This late entry 04/15/2018 covers elements, not covered in my initial note. SUBJECTIVE: I met with the patient in the evening and staffed at a treatment team meeting with the entire team in the afternoon, and the patient's [id number], Lata, attended the treatment team meeting. We reviewed the patient's history, diagnosis, placement options at length. She has been denied from several facilities due to her past suicide attempt and social service staff is diligently looking at other options. Nevertheless, in the interim, she is doing better. She slept 7-1/4 hours previous night. REVIEW OF SYSTEMS: Shortness of breath, on O2 supplements, impaired ambulation, in wheelchair. No CV, , pulmonary, eye, ENT system symptoms on review. MENTAL STATUS EXAM: Oriented to herself and situation. Speech has some latency, coherent. Abstraction fair, computation impaired, language function intact, attention span short. Mood and affect showing improvement. No suicidal ideation. LABORATORY DATA: Reviewed. IMPRESSION: Major depressive disorder; anxiety disorder, unspecified; cognitive disorder, unspecified; history of bipolar 1 disorder, depressed. PLAN: Continue psychotropics from initial note. Adjust further as clinically indicated. GWEN ROY MD DR: HERMELINDA/alexandra JOB#: [id number] / [id number]
--- NOTE | 2018-04-16 22:22 | PN ---
DATE: 04/16/2018 This note covers elements not covered in my initial note of 04/16/2018. SUBJECTIVE: I met with the patient in the afternoon. The patient slept 6-3/4 hours previous evening. Per nursing report, the patient has had a wet cough. She has been tired, withdrawn. We will defer to Dr. Quiles. She did receive Zofran and Lortab earlier. REVIEW OF SYSTEMS: Positive for being tired, difficulty breathing, on O2 supplements. Hard of hearing. No CV, , GI, eye system symptoms on review. MENTAL STATUS EXAM: Oriented to herself and situation. Speech has some latency, coherent, can be rapid at times. Abstraction fair, computation impaired, language function intact. Mood and affect, somewhat anxious, at times, but overall improved. LABORATORY DATA: Reviewed. IMPRESSION: Major depressive disorder, recurrent; anxiety disorder, unspecified; rule out bipolar 1 disorder, mixed, cognitive disorder, unspecified. PLAN: No change from initial note. MAN Rk ROY MD DR: HERMELINDA/alexandra JOB#: [id number] / [id number]
--- NOTE | 2018-04-16 22:56 | PDOC ---
Exam Note: Akshat Note: Please also refer to the separate dictated note~for this date of service dictated separately.~Patient seen individually. Discussed the patient with Nursing staff reviewed the chart.~Reviewed interim history and current functioning. Reviewed vital signs,~Labs/ Radiology~and current medications noted below. Continue current treatment with the changes noted in the dictated addendum note Assessment: Vital Signs: Vital Signs Date Time Temp Pulse Resp B/P (MAP) Pulse Ox O2 Delivery O2 Flow Rate FiO2 04/16/18 19:56 98 Nasal Cannula 2.0 04/16/18 15:56 98.0 63 22 174/79 (110) I&O Intake and Output 04/16/18 07:01 Intake Total 480 ml Balance 480 ml Intake Oral 480 ml # Bowel Movements 1 Labs: Laboratory Tests Test 04/16/18 17:20 White Blood Count 6.6 x10^3/uL (4.0-11.0) Red Blood Count 4.22 x10^6/uL (3.50-5.40) Hemoglobin 13.0 g/dL (12.0-15.5) Hematocrit 38.8 % (36.0-47.0) Mean Corpuscular Volume 92 fL (79-100) Mean Corpuscular Hemoglobin 31 pg (25-35) Mean Corpuscular Hemoglobin Concent 33 g/dL (31-37) Red Cell Distribution Width 14.6 % (11.5-14.5) H Platelet Count 173 x10^3/uL (140-400) Neutrophils (%) (Auto) 59 % (31-73) Lymphocytes (%) (Auto) 25 % (24-48) Monocytes (%) (Auto) 12 % (0-9) H Eosinophils (%) (Auto) 3 % (0-3) Basophils (%) (Auto) 1 % (0-3) Neutrophils # (Auto) 4.0 x10^3uL (1.8-7.7) Lymphocytes # (Auto) 1.7 x10^3/uL (1.0-4.8) Monocytes # (Auto) 0.8 x10^3/uL (0.0-1.1) Eosinophils # (Auto) 0.2 x10^3/uL (0.0-0.7) Basophils # (Auto) 0.0 x10^3/uL (0.0-0.2) Sodium Level 140 mmol/L (136-145) Potassium Level 4.4 mmol/L (3.5-5.1) Chloride Level 101 mmol/L (98-107) Carbon Dioxide Level 35 mmol/L (21-32) H Anion Gap 4 (6-14) L Blood Urea Nitrogen 13 mg/dL (7-20) Creatinine 0.7 mg/dL (0.6-1.0) Estimated GFR (Cockcroft-Gault) 79.2 BUN/Creatinine Ratio 19 (6-20) Glucose Level 94 mg/dL (70-99) Calcium Level 8.3 mg/dL (8.5-10.1) L Total Bilirubin 0.2 mg/dL (0.2-1.0) Aspartate Amino Transferase (AST) 12 U/L (15-37) L Alanine Aminotransferase (ALT) 16 U/L (14-59) Alkaline Phosphatase 49 U/L (46-116) Total Protein 6.3 g/dL (6.4-8.2) L Albumin 2.6 g/dL (3.4-5.0) L Albumin/Globulin Ratio 0.7 (1.0-1.7) L Current Medications: Meds: Current Medications Multi-Ingredient Ointment (Analgesic [place]) 1 attila PRN QID PRN TP MUSCLE PAIN; Start 03/27/18 at 18:45 Al Hydroxide/Mg Hydroxide (Mylanta Plus Xs) 15 ml PRN AFTMEALHC PRN PO DYSPEPSIA; Start 03/27/18 at 18:45 Magnesium Hydroxide (Milk Of Magnesia) 2,400 mg PRN QHS PRN PO CONSTIPATION; Start 03/27/18 at 18:45 Aspirin (Aspirin Enteric Coated) 325 mg DAILY PO Last administered on at 09:25; Start 03/28/18 at 09:00 Atorvastatin Calcium (Lipitor) 20 mg QHS PO Last administered on 04/16/18at 19: 30; Start 03/27/18 at 21:00 Estrogens Conjugated (Premarin) 0.5 attila PRN DAILY PRN VG vaginal dryness; Start 03/27/18 at 19:15 Acetaminophen/ Hydrocodone Bitart (Lortab 5/325) 1 tab PRN Q12HR PRN PO PAIN Last administered on 03/30/18at 09:06; Start 03/27/18 at 19:15; Stop 03/30/18 at 15:02; Status DC Ipratropium [place] (Atrovent) 0.2 mg PRN Q6HRS PRN IH SHORTNESS OF BREATH; Start 03/27/18 at 19:15 Levothyroxine Sodium (Synthroid) 75 mcg DAILYAC PO Last administered on at 08:40; Start 03/28/18 at 07:30; Stop 03/28/18 at 12:26; Status DC Lisinopril (Prinivil) 10 mg DAILY PO Last administered on 04/16/18 09:24; Start 03/28/18 at 09:00 Acetaminophen (Tylenol) 650 mg PRN Q6HRS PRN PO PAIN / TEMP Last administered on 04/10/18 06:01; Start 03/27/18 at 19:45 Non-Formulary Medication (Albuterol Sulfate (Albuterol Sulfate Conc Neb Soln)) 2.5 mg PRN Q6HRS PRN NEB SHORTNESS OF BREATH; Start 03/27/18 at 19:15; Status UNV Amlodipine Besylate (Norvasc) 10 mg DAILY PO Last administered on 03/31/18at 08 :38; Start 03/28/18 at 09:00; Stop 03/31/18 at 12:27; Status DC Non-Formulary Medication (Budesonide/ Formoterol Fumarate (Symbicort 160-4.5 Mcg Inhaler)) 2 puff BID IH ; Start 03/27/18 at 21:00; Status UNV Carvedilol (Coreg) 6.25 mg BIDWMEALS PO Last administered on 04/16/18at 14:52; Start 03/27/18 at 20:00 Divalproex Sodium (Depakote Er) 750 mg QHS PO Last administered on 03/27/18at 20:53; Start 03/27/18 at 21:00; Stop 03/28/18 at 21:13; Status DC Docusate Sodium (Colace) 100 mg PRN DAILY PRN PO HARD STOOLS; Start 03/27/18 at 19:45 Donepezil HCl (Aricept) 10 mg QHS PO Last administered on 04/16/18 19:30; Start 03/27/18 at 21:00 Enoxaparin Sodium (Lovenox 40mg Syringe) 40 mg DAILY SQ Last administered on 09:26; Start 03/28/18 at 09:00 Hydralazine HCl (Apresoline) 10 mg TID PO Last administered on 03/31/18at 08:39 ; Start 03/27/18 at 21:00; Stop 03/31/18 at 12:27; Status DC Multivitamins/ Calcium (Thera-M Plus) 1 tab DAILY PO Last administered on 09:25; Start 03/28/18 at 09:00 Olanzapine (ZyPREXA) 5 mg PRN DAILY PRN PO ANXIETY/AGITATION Last administered on 03/29/18at 10:50; Start 03/28/18 at 09:00 Pantoprazole Sodium (Protonix) 40 mg DAILYAC PO Last administered on 04/16/18 09:25; Start 03/28/18 at 07:30 Phenazopyridine HCl (Pyridium) 100 mg PRN TID PRN PO URINARY PAIN; Start 03/27 at 19:45 Polyethylene Glycol (miraLAX) 17 gm PRN BID PRN PO CONSTIPATION; Start at 09:00 Sodium Chloride (Saline Mist Nasal) 1 attila QID NS ; Start 03/27/18 at 21:00; Status Cancel Trazodone HCl (Desyrel) 25 mg PRN BID PRN PO ANXIETY/AGITATION; Start at 19:45 Trazodone HCl (Desyrel) 50 mg PRN QHS PRN PO INSOMNIA; Start 03/27/18 at 19:45 Lidocaine (Lidoderm) 1 patch DAILY TD Last administered on 04/16/18 09:24; Start 03/28/18 at 09:00 Multivitamins/ Minerals (I-Angelo) 1 tab DAILY PO Last administered on 04/16/18 09:24; Start 03/28/18 at 09:00 Miscellaneous (Lidoderm Patch Removal) 1 ea QHS MC Last administered on 19:30; Start 03/27/18 at 21:00 Albuterol Sulfate (Ventolin) 2.5 mg PRN Q6HRS PRN NEB SHORTNESS OF BREATH; Start 03/27/18 at 19:45 Albuterol Sulfate (Ventolin) 2.5 mg RTQID NEB Last administered on 04/16/18at 19 :55; Start 03/27/18 at 20:00 Budesonide (Pulmicort) 0.5 mg RTBID NEB Last administered on 04/16/18at 19:55; Start 03/27/18 at 20:00 Sodium Chloride ([place] Saline Nasal) 2 attila QID NS ; Start 03/27/18 at 21:00; Stop 03/28/18 at 13:08; Status DC Levothyroxine Sodium (Synthroid) 75 mcg DAILY06 PO Last administered on at 05:58; Start 03/29/18 at 06:00 Sodium Chloride (Saline Mist Nasal) 1 attila PRN QID PRN NS NASAL CONGESTION; Start 03/28/18 at 13:15 Divalproex Sodium (Depakote Sprinkles) 750 mg HS PO Last administered on at 20:20; Start 03/28/18 at 21:30; Stop 03/30/18 at 14:27; Status DC Sertraline HCl (Zoloft) 25 mg DAILY PO Last administered on 03/31/18at 08:39; Start 03/29/18 at 09:00; Stop 03/31/18 at 09:01; Status DC Sertraline HCl (Zoloft) 50 mg DAILY PO Last administered on 04/16/18at 09:25; Start 04/01/18 at 09:00 Divalproex Sodium (Depakote Sprinkles) 500 mg BID94 PO Last administered on at 07:55; Start 03/30/18 at 09:00; Stop 03/30/18 at 14:27; Status DC Quetiapine Fumarate (SEROquel) 12.5 mg 1300 PO Last administered on 04/16/18at 14:51; Start 03/30/18 at 13:00 Divalproex Sodium (Depakote Sprinkles) 500 mg BID PO Last administered on 04/01at 09:59; Start 03/30/18 at 21:00; Stop 04/01/18 at 17:43; Status DC Acetaminophen/ Hydrocodone Bitart (Lortab 5/325) 1 tab PRN Q6HRS PRN PO PAIN Last administered on 04/16/18 12:48; Start 03/30/18 at 15:15 Olanzapine (ZyPREXA ZYDIS) 2.5 mg PRN Q2HR PRN PO PSYCHOSIS; Start 03/30/18 at 19:15 Divalproex Sodium (Depakote Sprinkles) 625 mg BID PO Last administered on 19:31; Start 04/01/18 at 21:00 Ondansetron HCl (Zofran Odt) 4 mg PRN Q8HRS PRN PO NAUSEA/VOMITING Last administered on 04/16/18 10:50; Start 04/09/18 at 08:30 Levofloxacin (Levaquin) 750 mg DAILY06 PO Last administered on 04/16/18 19:35 ; Start 04/16/18 at 19:45 Lactobacillus Rhamnosus (Culturelle) 1 cap BID PO Last administered on 19:35; Start 04/16/18 at 21:00 Active Scripts Active Reported [occuvite] 1 Tab PO DAILY Pyridium (Phenazopyridine Hcl) 100 Mg Tablet 100 Mg PO PRN TID PRN Trazodone Hcl 50 Mg Tablet 25 Mg PO PRN QHS PRN Premarin (Estrogens, Conjugated) 30 Gm Cream.appl 0.5 Gm VG PRN DAILY PRN Multivitamins (Multivitamin) 1 Each Tablet 1 Tab PO DAILY Trazodone Hcl 50 Mg Tablet 25 Mg PO BID PRN [place] Saline (Sodium Chloride) 50 Ml Drops 2 Drop NS QID Miralax (Polyethylene Glycol 3350) 17 Gm Powd.pack 17 Gm PO PRN BID PRN Protonix (Pantoprazole Sodium) 40 Mg Tablet.dr 40 Mg PO DAILY Zyprexa (Olanzapine) 5 Mg Tablet 5 Mg PO PRN DAILY PRN Lisinopril 10 Mg Tablet 10 Mg PO DAILY [lidoderm] 1 Patch TD DAILY Levothyroxine Sodium 75 Mcg Tablet 75 Mcg PO DAILYAC Ipratropium [place] 0.2 Mg/1 Ml Solution 0.2 Mg IH PRN Q6HRS PRN Hydrocodone-Apap 5-325 (Hydrocodone Bit/Acetaminophen) 1 Each Tablet 1 Tab PO PRN Q12HR PRN Hydralazine Hcl 10 Mg Tablet 10 Mg PO TID Lovenox (Enoxaparin Sodium) 40 Mg/0.4 Ml Disp.syrin 40 Mg SQ DAILY Donepezil Hcl 10 Mg Tablet 10 Mg PO HS Colace (Docusate Sodium) 100 Mg Capsule 100 Mg PO PRN DAILY PRN Depakote Er (Divalproex Sodium) 500 Mg Tab.er.24h 750 Mg PO HS Coreg (Carvedilol) 6.25 Mg Tablet 6.25 Mg PO BIDWMEALS Symbicort 160-4.5 Mcg Inhaler (Budesonide/Formoterol Fumarate) 10.2 Gm Hfa.aer.ad 2 Puff IH BID Lipitor (Atorvastatin Calcium) 20 Mg Tablet 20 Mg PO QHS Aspirin Ec (Aspirin) 325 Mg Tablet.dr 325 Mg PO DAILY Amlodipine Besylate 10 Mg Tablet 10 Mg PO DAILY Albuterol Sulfate Conc Neb Soln (Albuterol Sulfate) 2.5 Mg/0.5 Ml Vial.neb 2.5 Mg NEB PRN Q6HRS PRN Acetaminophen 650 Mg/20.3 Ml Solution 650 Mg PO PRN Q6HRS PRN I have reviewed the current psychotropics carefully including drug interactions. Risk benefit ratio favors no change other than as noted in my dictated progress note. Diagnosis: Problems: (1) Anxiety disorder (2) Major depressive disorder, recurrent episode (3) Psychosis, atypical (4) Impulse control disorder GWEN ROY MD Apr 16, 2018 22:56
[2018-04-17] MEDS: ALBUTEROL SULFATE 2.5 MG/3 ML NEBU. NEB SCH ×4 (04:55→16:31)
[2018-04-17] MEDS: levoFLOXacin 750 MG TABLET PO SCH (05:03)
[2018-04-17] MEDS: LEVOTHYROXINE 75 MCG TABLET PO SCH (05:03)
[2018-04-17 05:36] VITALS: BP 129/63
[2018-04-17] MEDS: LIDOCAINE (700MG/PATCH) PATCH. TD SCH (08:01)
[2018-04-17] MEDS: MULTIVITAMIN I-VITE TABLET. PO SCH (08:01)
[2018-04-17] MEDS: LISINOPRIL 10 MG TABLET PO SCH (08:01)
[2018-04-17] MEDS: CARVEDILOL 6.25 MG TABLET PO SCH ×2 (08:02→17:28)
[2018-04-17] MEDS: LACTOBACILLUS RHAMNOSUS GG 1 CAPSULE. PO SCH ×2 (08:02→19:38)
[2018-04-17] MEDS: MULTIVITAMIN with MINERAL TABLET. PO SCH (08:02)
[2018-04-17] MEDS: ASPIRIN ENTERIC COATED 325 MG TABLET.DR. PO SCH (08:02)
[2018-04-17] MEDS: PANTOPRAZOLE 40 MG TABLET. PO SCH (08:02)
[2018-04-17] MEDS: SERTRALINE 25 MG TABLET. PO SCH (08:02)
[2018-04-17] MEDS: ENOXAPARIN 40 MG/0.4 ML SYRINGE. SQ SCH (08:03)
[2018-04-17] MEDS: DIVALPROEX 125 MG CAP.SPRINK PO SCH ×2 (08:03→19:38)
[2018-04-17] MEDS: BUDESONIDE 0.5 MG/2 ML NEBU NEB SCH ×3 (10:25→20:13)
[2018-04-17] MEDS: QUEtiapine 25 MG TABLET. PO SCH (13:00)
[2018-04-17 15:13] VITALS: BP 145/72
[2018-04-17] MEDS: PATCH REMOVAL. MC SCH (19:37)
[2018-04-17] MEDS: ATORVASTATIN CALCIUM 20 MG TABLET PO SCH (19:38)
[2018-04-17] MEDS: DONEPEZIL HCL 10 MG TABLET PO SCH (19:38)
[2018-04-17] MEDS: ONDANSETRON ODT 4 MG TAB.RAPDIS PO PRN (19:39)
--- NOTE | 2018-04-17 19:48 | PN ---
DATE: 04/17/2018 SUBJECTIVE: The patient was seen at the request of the nursing staff as they felt that she seemed to be congested and worried that she might be fluid overloaded. I examined her. The patient herself said that she feels somewhat short of breath, cough with scanty whitish sputum. PHYSICAL EXAMINATION: GENERAL: When I examined her, she looked well and was clearly in no apparent respiratory distress. No pallor, jaundice, cyanosis, or thyromegaly. No jugular venous distension. No lower limb edema. VITAL SIGNS: Her heart rate was 73, blood pressure was 129/63, temperature was 97.6, respiratory rate was 18 and oxygen saturation was 97% on 2 liters of oxygen by nasal cannula. HEAD, EYES, EARS, NOSE AND THROAT: Showed normocephalic, atraumatic. NECK: Supple. HEART: Showed normal first and second heart sounds with no gallop, rub or murmur. CHEST: Clear to auscultation. No crepitation or rhonchi. ABDOMEN: Distended, soft, nontender. NEUROLOGIC: She was awake, alert. All her cranial nerves are intact. She moves extremities without difficulty, though she is mostly chair bound. IMAGING: I did order a chest x-ray, which showed that there is a dual lead left-sided pacemaker is present. Heart size is normal. Small hiatal hernia is present. No infiltrate, minimal right basilar discoid atelectasis present. Mild retrocardiac linear atelectasis or scarring is present. Vertebroplasty changes are noted involving the spine. Right upper quadrant surgical clips are present. Advanced degenerative changes of the left glenohumeral joint. LABORATORY DATA: We did actually check her labs and her white cell count was only 6600, hemoglobin 13, hematocrit 39, MCV 92 and platelet count of 173,000. Her chemistry showed a serum sodium 140, potassium 4.4, chloride 101, bicarbonate 35, anion gap of 4, BUN 13, creatinine 0.7. Estimated GFR was 79 mL per minute. Her glucose was 94. Calcium was 8.3. Total bilirubin, AST, ALT, alkaline phosphatase were normal. Total protein 6.3, albumin 2.6. Her urine showed that she was positive for nitrite and there was large amount of bacteria and more than 40 wbc's. Her urine culture showed growth of Proteus mirabilis sensitive to ciprofloxacin and levofloxacin, and therefore, she was started on levofloxacin 750 mg daily for 10 days. YEYO STARK MD DR: JEZ/alexandra JOB#: [id number] / [id number]
--- NOTE | 2018-04-17 21:31 | PN ---
DATE: 04/17/2018 SUBJECTIVE: The patient was seen today, met with the staff, chart reviewed and also covering for Dr. Reagan. The patient is still delusional, paranoid, claims that her son, who is her DPOA, taking all her money. The patient is also highly anxious, nervous. OBSERVATION: VITAL SIGNS: Temperature 97.6, blood pressure 129/63, pulse 73, respirations 18, O2 sat 97%. Slept about 7 hours last night. The patient's appetite has improved. MEDICATIONS: Reviewed. Currently on Depakote 625 mg b.i.d., Zoloft 50 mg daily, olanzapine 2.5 mg q. 2-6 hours p.r.n., Seroquel 25 mg daily, levothyroxine 75 mcg daily, Aricept 10 mg daily, trazodone 25 mg b.i.d. The patient is currently not having any side effects to the medications. ASSESSMENT: Major depressive disorder with psychotic features, major neurocognitive disorder, most likely Alzheimer's. PLAN: To continue with the treatment. NIKITA CHAUHAN MD DR: URBAN/alexandra JOB#: [id number] / [id number]
[2018-04-18] MEDS: ALBUTEROL SULFATE 2.5 MG/3 ML NEBU. NEB SCH ×4 (04:59→20:16)
[2018-04-18 06:16] VITALS: BP 120/69
[2018-04-18] MEDS: LEVOTHYROXINE 75 MCG TABLET PO SCH (06:22)
[2018-04-18] MEDS: levoFLOXacin 750 MG TABLET PO SCH (06:22)
[2018-04-18] MEDS: LIDOCAINE (700MG/PATCH) PATCH. TD SCH (07:39)
[2018-04-18] MEDS: ENOXAPARIN 40 MG/0.4 ML SYRINGE. SQ SCH (07:39)
[2018-04-18] MEDS: LACTOBACILLUS RHAMNOSUS GG 1 CAPSULE. PO SCH ×2 (07:40→19:52)
[2018-04-18] MEDS: MULTIVITAMIN with MINERAL TABLET. PO SCH (07:40)
[2018-04-18] MEDS: CARVEDILOL 6.25 MG TABLET PO SCH ×2 (07:40→17:00)
[2018-04-18] MEDS: ASPIRIN ENTERIC COATED 325 MG TABLET.DR. PO SCH (07:40)
[2018-04-18] MEDS: DIVALPROEX 125 MG CAP.SPRINK PO SCH ×2 (07:40→19:52)
[2018-04-18] MEDS: PANTOPRAZOLE 40 MG TABLET. PO SCH (07:40)
[2018-04-18] MEDS: LISINOPRIL 10 MG TABLET PO SCH (07:40)
[2018-04-18] MEDS: SERTRALINE 25 MG TABLET. PO SCH (07:41)
[2018-04-18] MEDS: MULTIVITAMIN I-VITE TABLET. PO SCH (07:43)
[2018-04-18] MEDS: BUDESONIDE 0.5 MG/2 ML NEBU NEB SCH ×2 (09:53→20:16)
[2018-04-18] MEDS: QUEtiapine 25 MG TABLET. PO SCH (12:38)
[2018-04-18 15:47] VITALS: BP 103/55
[2018-04-18] MEDS: DONEPEZIL HCL 10 MG TABLET PO SCH (19:51)
[2018-04-18] MEDS: PATCH REMOVAL. MC SCH (19:52)
[2018-04-18] MEDS: ATORVASTATIN CALCIUM 20 MG TABLET PO SCH (19:52)
[2018-04-19] MEDS: ALBUTEROL SULFATE 2.5 MG/3 ML NEBU. NEB SCH ×4 (05:12→20:21)
[2018-04-19] MEDS: levoFLOXacin 750 MG TABLET PO SCH (05:54)
[2018-04-19] MEDS: LEVOTHYROXINE 75 MCG TABLET PO SCH (05:54)
[2018-04-19 06:06] VITALS: BP 145/70
[2018-04-19] MEDS: LIDOCAINE (700MG/PATCH) PATCH. TD SCH (08:10)
[2018-04-19] MEDS: ENOXAPARIN 40 MG/0.4 ML SYRINGE. SQ SCH (08:11)
[2018-04-19] MEDS: MULTIVITAMIN with MINERAL TABLET. PO SCH (08:11)
[2018-04-19] MEDS: ASPIRIN ENTERIC COATED 325 MG TABLET.DR. PO SCH (08:11)
[2018-04-19] MEDS: PANTOPRAZOLE 40 MG TABLET. PO SCH (08:11)
[2018-04-19] MEDS: MULTIVITAMIN I-VITE TABLET. PO SCH (08:11)
[2018-04-19] MEDS: DIVALPROEX 125 MG CAP.SPRINK PO SCH ×2 (08:11→20:06)
[2018-04-19] MEDS: LACTOBACILLUS RHAMNOSUS GG 1 CAPSULE. PO SCH ×2 (08:11→20:07)
[2018-04-19] MEDS: SERTRALINE 25 MG TABLET. PO SCH (08:12)
[2018-04-19] MEDS: LISINOPRIL 10 MG TABLET PO SCH (08:12)
[2018-04-19] MEDS: CARVEDILOL 6.25 MG TABLET PO SCH ×2 (08:12→17:58)
[2018-04-19] MEDS: HYDROcodone/APAP 5/325MG 1 TAB TABLET PO PRN ×2 (09:18→11:07)
[2018-04-19] MEDS: BUDESONIDE 0.5 MG/2 ML NEBU NEB SCH ×2 (10:21→20:21)
[2018-04-19] MEDS: QUEtiapine 25 MG TABLET. PO SCH (13:28)
--- NOTE | 2018-04-19 15:54 | PN ---
DATE: 04/19/2018 SUBJECTIVE: The patient was seen today, met with the staff, chart reviewed. The patient still has some pressured speech, racing thoughts. Stays in bed most of the time, not able to verbalize her needs. Denies of any suicidal thoughts. Staff reports no major behavior problems. No falls. OBSERVATION: Temperature 97.7, blood pressure 145/70, pulse 68, respiration 14, O2 sat 99%. Slept about 6 hours last night. The patient's medications reviewed. Currently on Depakote, Zoloft, olanzapine as p.r.n. Also on Seroquel, Aricept, and trazodone. ASSESSMENT: 1. Major depressive disorder with psychotic features. 2. Major neurocognitive disorder, most likely Alzheimer's. PLAN: Continue with the treatment. NIKITA CHAUHAN MD DR: URBAN/alexandra JOB#: [id number] / [id number]
[2018-04-19 15:58] VITALS: BP 126/76
[2018-04-19] MEDS: ATORVASTATIN CALCIUM 20 MG TABLET PO SCH (20:07)
[2018-04-19] MEDS: DONEPEZIL HCL 10 MG TABLET PO SCH (20:07)
[2018-04-19] MEDS: GABAPENTIN 100 MG CAPSULE. PO SCH (20:08)
[2018-04-19] MEDS: PATCH REMOVAL. MC SCH (20:10)
[2018-04-20] MEDS: ALBUTEROL SULFATE 2.5 MG/3 ML NEBU. NEB SCH ×4 (05:11→20:00)
[2018-04-20 05:57] VITALS: BP 134/58
[2018-04-20] MEDS: levoFLOXacin 750 MG TABLET PO SCH (06:13)
[2018-04-20] MEDS: LEVOTHYROXINE 75 MCG TABLET PO SCH (06:13)
[2018-04-20] MEDS: PANTOPRAZOLE 40 MG TABLET. PO SCH (07:46)
[2018-04-20] MEDS: BUDESONIDE 0.5 MG/2 ML NEBU NEB SCH ×2 (08:00→20:00)
[2018-04-20] MEDS: MULTIVITAMIN with MINERAL TABLET. PO SCH (08:43)
[2018-04-20] MEDS: ASPIRIN ENTERIC COATED 325 MG TABLET.DR. PO SCH (08:43)
[2018-04-20] MEDS: LACTOBACILLUS RHAMNOSUS GG 1 CAPSULE. PO SCH ×2 (08:43→20:18)
[2018-04-20] MEDS: DIVALPROEX 125 MG CAP.SPRINK PO SCH ×2 (08:43→20:18)
[2018-04-20] MEDS: MULTIVITAMIN I-VITE TABLET. PO SCH (08:43)
[2018-04-20] MEDS: GABAPENTIN 100 MG CAPSULE. PO SCH ×3 (08:44→20:19)
[2018-04-20] MEDS: LISINOPRIL 10 MG TABLET PO SCH (08:44)
[2018-04-20] MEDS: CARVEDILOL 6.25 MG TABLET PO SCH ×2 (08:44→18:03)
[2018-04-20] MEDS: ENOXAPARIN 40 MG/0.4 ML SYRINGE. SQ SCH (08:45)
[2018-04-20] MEDS: LIDOCAINE (700MG/PATCH) PATCH. TD SCH (08:46)
[2018-04-20] MEDS: SERTRALINE 25 MG TABLET. PO SCH (08:48)
[2018-04-20] MEDS: OLANZapine 5 MG TABLET PO PRN (11:25)
[2018-04-20] MEDS: HYDROcodone/APAP 5/325MG 1 TAB TABLET PO PRN (11:30)
[2018-04-20] MEDS: QUEtiapine 25 MG TABLET. PO SCH (13:36)
[2018-04-20 16:32] VITALS: BP 135/68
[2018-04-20] MEDS: ATORVASTATIN CALCIUM 20 MG TABLET PO SCH (20:18)
[2018-04-20] MEDS: DONEPEZIL HCL 10 MG TABLET PO SCH (20:18)
[2018-04-20] MEDS: PATCH REMOVAL. MC SCH (20:21)
[2018-04-21] MEDS ORDERED: DIVA125C2 PO (01:43)
[2018-04-21] MEDS ORDERED: ALBU2.5V5 NEB (01:55)
[2018-04-21] MEDS ORDERED: GABA-585 PO (01:55)
[2018-04-21] MEDS ORDERED: LACT1CAP21 PO (01:56)
[2018-04-21] MEDS ORDERED: MAG30ORA2 PO (01:57)
[2018-04-21] MEDS ORDERED: MAGN2400 PO (01:58)
[2018-04-21] MEDS ORDERED: METH29OI TP (01:59)
[2018-04-21] MEDS ORDERED: ONDA4TAB7 PO (02:00)
[2018-04-21] MEDS ORDERED: QUET25TA PO (02:04)
[2018-04-21] MEDS ORDERED: LEVO750T5 PO (02:07)
[2018-04-21] MEDS ORDERED: SERT25TA PO (02:07)
[2018-04-21] MEDS: ALBUTEROL SULFATE 2.5 MG/3 ML NEBU. NEB SCH ×2 (05:07→09:41)
[2018-04-21 05:50] VITALS: BP 162/83
[2018-04-21] MEDS: LEVOTHYROXINE 75 MCG TABLET PO SCH (05:59)
[2018-04-21] MEDS: levoFLOXacin 750 MG TABLET PO SCH (05:59)
[2018-04-21] MEDS: PANTOPRAZOLE 40 MG TABLET. PO SCH (07:34)
[2018-04-21] MEDS: SERTRALINE 25 MG TABLET. PO SCH (08:43)
[2018-04-21] MEDS: MULTIVITAMIN I-VITE TABLET. PO SCH (08:43)
[2018-04-21] MEDS: DIVALPROEX 125 MG CAP.SPRINK PO SCH (08:43)
[2018-04-21 08:44] VITALS: BP 162/83
[2018-04-21] MEDS: LACTOBACILLUS RHAMNOSUS GG 1 CAPSULE. PO SCH (08:44)
[2018-04-21] MEDS: CARVEDILOL 6.25 MG TABLET PO SCH (08:44)
[2018-04-21] MEDS: LISINOPRIL 10 MG TABLET PO SCH (08:44)
[2018-04-21] MEDS: GABAPENTIN 100 MG CAPSULE. PO SCH ×2 (08:45→13:00)
[2018-04-21] MEDS: MULTIVITAMIN with MINERAL TABLET. PO SCH (08:45)
[2018-04-21] MEDS: ASPIRIN ENTERIC COATED 325 MG TABLET.DR. PO SCH (08:45)
[2018-04-21] MEDS: ENOXAPARIN 40 MG/0.4 ML SYRINGE. SQ SCH (08:45)
[2018-04-21] MEDS: LIDOCAINE (700MG/PATCH) PATCH. TD SCH (08:46)
[2018-04-21] MEDS: HYDROcodone/APAP 5/325MG 1 TAB TABLET PO PRN (08:48)
--- NOTE | 2018-04-21 09:15 | PDOC ---
Exam Note: Akshat Note: Late entry for DOS 04/20/2018. Please also refer to the separate dictated note~ for this date of service dictated separately.~Patient seen individually. Discussed the patient with Nursing staff reviewed the chart.~Reviewed interim history and current functioning. Reviewed vital signs,~Labs/ Radiology~and current medications noted below. Continue current treatment with the changes noted in the dictated addendum note Assessment: Vital Signs: VS - Last 72 Hours, by Label Date Time Temp Pulse Resp B/P (MAP) Pulse Ox O2 Delivery O2 Flow Rate FiO2 04/21/18 08:48 97 Room Air 04/21/18 08:44 70 162/83 04/21/18 08:44 70 162/83 04/21/18 05:50 98.2 70 19 162/83 (109) 97 04/21/18 05:00 96 Nasal Cannula 2.0 04/20/18 19:50 97 Nasal Cannula 2.0 04/20/18 19:42 97 Nasal Cannula 2.0 04/20/18 19:40 87 Room Air 04/20/18 18:03 61 135/68 04/20/18 16:32 97.4 61 16 135/68 (90) 97 04/20/18 15:32 96 Nasal Cannula 2.0 04/20/18 13:33 95 Room Air 04/20/18 11:30 95 Room Air 04/20/18 08:44 60 134/58 04/20/18 08:44 60 134/58 04/20/18 05:57 97.4 60 16 134/58 (83) 95 04/20/18 05:10 96 Nasal Cannula 2.0 04/19/18 20:25 97 Nasal Cannula 2.0 04/19/18 17:58 65 126/76 04/19/18 15:58 97.3 65 18 126/76 (93) 97 2.0 04/19/18 15:39 94 Nasal Cannula 2.0 04/19/18 10:28 95 Nasal Cannula 2.0 04/19/18 10:23 95 Nasal Cannula 2.0 04/19/18 08:12 68 145/70 04/19/18 08:12 68 145/70 04/19/18 06:06 97.7 68 14 145/70 (95) 97 04/19/18 05:14 96 Nasal Cannula 2.0 04/18/18 20:15 96 Nasal Cannula 2.0 04/18/18 17:00 68 103/55 04/18/18 15:47 97.7 68 22 103/55 (71) 97 Room Air 04/18/18 14:59 96 Nasal Cannula 2.0 04/18/18 09:54 97 Nasal Cannula 2.0 Vital Signs Date Time Temp Pulse Resp B/P (MAP) Pulse Ox O2 Delivery O2 Flow Rate FiO2 04/21/18 08:48 97 Room Air 04/21/18 08:44 70 162/83 04/21/18 05:50 98.2 19 04/21/18 05:00 2.0 I&O Intake and Output 04/21/18 07:01 Intake Total 1080 ml Balance 1080 ml Intake Oral 1080 ml Current Medications: Meds: Current Medications Multi-Ingredient Ointment (Analgesic [place]) 1 iwona PRN QID PRN TP MUSCLE PAIN; Start 03/27/18 at 18:45 Al Hydroxide/Mg Hydroxide (Mylanta Plus Xs) 15 ml PRN AFTMEALHC PRN PO DYSPEPSIA; Start 03/27/18 at 18:45 Magnesium Hydroxide (Milk Of Magnesia) 2,400 mg PRN QHS PRN PO CONSTIPATION; Start 03/27/18 at 18:45 Aspirin (Aspirin Enteric Coated) 325 mg DAILY PO Last administered on at 08:45; Start 03/28/18 at 09:00 Atorvastatin Calcium (Lipitor) 20 mg QHS PO Last administered on 04/20/18at 20: 18; Start 03/27/18 at 21:00 Estrogens Conjugated (Premarin) 0.5 iwona PRN DAILY PRN VG vaginal dryness; Start 03/27/18 at 19:15 Acetaminophen/ Hydrocodone Bitart (Lortab 5/325) 1 tab PRN Q12HR PRN PO PAIN Last administered on 03/30/18at 09:06; Start 03/27/18 at 19:15; Stop 03/30/18 at 15:02; Status DC Ipratropium [place] (Atrovent) 0.2 mg PRN Q6HRS PRN IH SHORTNESS OF BREATH; Start 03/27/18 at 19:15 Levothyroxine Sodium (Synthroid) 75 mcg DAILYAC PO Last administered on at 08:40; Start 03/28/18 at 07:30; Stop 03/28/18 at 12:26; Status DC Lisinopril (Prinivil) 10 mg DAILY PO Last administered on 04/21/18 08:44; Start 03/28/18 at 09:00 Acetaminophen (Tylenol) 650 mg PRN Q6HRS PRN PO PAIN / TEMP Last administered on 04/10/18 06:01; Start 03/27/18 at 19:45 Non-Formulary Medication (Albuterol Sulfate (Albuterol Sulfate Conc Neb Soln)) 2.5 mg PRN Q6HRS PRN NEB SHORTNESS OF BREATH; Start 03/27/18 at 19:15; Status UNV Amlodipine Besylate (Norvasc) 10 mg DAILY PO Last administered on 03/31/18 08 :38; Start 03/28/18 at 09:00; Stop 03/31/18 at 12:27; Status DC Non-Formulary Medication (Budesonide/ Formoterol Fumarate (Symbicort 160-4.5 Mcg Inhaler)) 2 puff BID IH ; Start 03/27/18 at 21:00; Status UNV Carvedilol (Coreg) 6.25 mg BIDWMEALS PO Last administered on 04/21/18 08:44; Start 03/27/18 at 20:00 Divalproex Sodium (Depakote Er) 750 mg QHS PO Last administered on 03/27/18at 20:53; Start 03/27/18 at 21:00; Stop 03/28/18 at 21:13; Status DC Docusate Sodium (Colace) 100 mg PRN DAILY PRN PO HARD STOOLS; Start 03/27/18 at 19:45 Donepezil HCl (Aricept) 10 mg QHS PO Last administered on 04/20/18 20:18; Start 03/27/18 at 21:00 Enoxaparin Sodium (Lovenox 40mg Syringe) 40 mg DAILY SQ Last administered on 08:45; Start 03/28/18 at 09:00 Hydralazine HCl (Apresoline) 10 mg TID PO Last administered on 03/31/18at 08:39 ; Start 03/27/18 at 21:00; Stop 03/31/18 at 12:27; Status DC Multivitamins/ Calcium (Thera-M Plus) 1 tab DAILY PO Last administered on 08:45; Start 03/28/18 at 09:00 Olanzapine (ZyPREXA) 5 mg PRN DAILY PRN PO ANXIETY/AGITATION Last administered on 04/20/18 11:25; Start 03/28/18 at 09:00 Pantoprazole Sodium (Protonix) 40 mg DAILYAC PO Last administered on 04/21/18 07:34; Start 03/28/18 at 07:30 Phenazopyridine HCl (Pyridium) 100 mg PRN TID PRN PO URINARY PAIN; Start 03/27 at 19:45 Polyethylene Glycol (miraLAX) 17 gm PRN BID PRN PO CONSTIPATION; Start at 09:00 Sodium Chloride (Saline Mist Nasal) 1 iwona QID NS ; Start 03/27/18 at 21:00; Status Cancel Trazodone HCl (Desyrel) 25 mg PRN BID PRN PO ANXIETY/AGITATION; Start at 19:45 Trazodone HCl (Desyrel) 50 mg PRN QHS PRN PO INSOMNIA; Start 03/27/18 at 19:45 Lidocaine (Lidoderm) 1 patch DAILY TD Last administered on 04/21/18 08:46; Start 03/28/18 at 09:00 Multivitamins/ Minerals (I-Angelo) 1 tab DAILY PO Last administered on 04/21/18 08:43; Start 03/28/18 at 09:00 Miscellaneous (Lidoderm Patch Removal) 1 ea QHS MC Last administered on 20:21; Start 03/27/18 at 21:00 Albuterol Sulfate (Ventolin) 2.5 mg PRN Q6HRS PRN NEB SHORTNESS OF BREATH Last administered on 04/17/18 20:13; Start 03/27/18 at 19:45 Albuterol Sulfate (Ventolin) 2.5 mg RTQID NEB Last administered on 04/21/18 05 :07; Start 03/27/18 at 20:00 Budesonide (Pulmicort) 0.5 mg RTBID NEB Last administered on 04/20/18 20:00; Start 03/27/18 at 20:00 Sodium Chloride ([place] Saline Nasal) 2 iwona QID NS ; Start 03/27/18 at 21:00; Stop 03/28/18 at 13:08; Status DC Levothyroxine Sodium (Synthroid) 75 mcg DAILY06 PO Last administered on 05:59; Start 03/29/18 at 06:00 Sodium Chloride (Saline Mist Nasal) 1 iwona PRN QID PRN NS NASAL CONGESTION; Start 03/28/18 at 13:15 Divalproex Sodium (Depakote Sprinkles) 750 mg HS PO Last administered on at 20:20; Start 03/28/18 at 21:30; Stop 03/30/18 at 14:27; Status DC Sertraline HCl (Zoloft) 25 mg DAILY PO Last administered on 03/31/18at 08:39; Start 03/29/18 at 09:00; Stop 03/31/18 at 09:01; Status DC Sertraline HCl (Zoloft) 50 mg DAILY PO Last administered on 04/19/18 08:12; Start 04/01/18 at 09:00; Stop 04/19/18 at 13:49; Status DC Divalproex Sodium (Depakote Sprinkles) 500 mg BID94 PO Last administered on at 07:55; Start 03/30/18 at 09:00; Stop 03/30/18 at 14:27; Status DC Quetiapine Fumarate (SEROquel) 12.5 mg 1300 PO Last administered on 04/20/18at 13:36; Start 03/30/18 at 13:00 Divalproex Sodium (Depakote Sprinkles) 500 mg BID PO Last administered on 04/01at 09:59; Start 03/30/18 at 21:00; Stop 04/01/18 at 17:43; Status DC Acetaminophen/ Hydrocodone Bitart (Lortab 5/325) 1 tab PRN Q6HRS PRN PO PAIN Last administered on 04/21/18 08:48; Start 03/30/18 at 15:15 Olanzapine (ZyPREXA ZYDIS) 2.5 mg PRN Q2HR PRN PO PSYCHOSIS Last administered on 04/17/18 19:46; Start 12/24/18 at 19:15; Stop 04/20/18 at 17:07; Status DC Divalproex Sodium (Depakote Sprinkles) 625 mg BID PO Last administered on 08:43; Start 04/01/18 at 21:00 Ondansetron HCl (Zofran Odt) 4 mg PRN Q8HRS PRN PO NAUSEA/VOMITING Last administered on 04/17/18at 19:39; Start 04/09/18 at 08:30 Levofloxacin (Levaquin) 750 mg DAILY06 PO Last administered on 04/21/18at 05:59 ; Start 04/16/18 at 19:45 Lactobacillus Rhamnosus (Culturelle) 1 cap BID PO Last administered on 08:44; Start 04/16/18 at 21:00 Gabapentin (Neurontin) 100 mg TID PO Last administered on 04/21/18 08:45; Start 04/19/18 at 21:00 Sertraline HCl (Zoloft) 75 mg DAILY PO Last administered on 04/21/18at 08:43; Start 04/20/18 at 09:00 Active Scripts Active Reported Levofloxacin 750 Mg Tablet 750 Mg PO DAILY06 Zoloft (Sertraline Hcl) 25 Mg Tablet 75 Mg PO DAILY Quetiapine Fumarate 25 Mg Tablet 12.5 Mg PO DAILY13 Zofran (Ondansetron Hcl) 4 Mg Tablet 4 Mg PO PRN Q8HRS PRN Analgesic [place] (Methyl Salicylate/Menthol) 28 Gm Oint...g. 1 Iw[place] TP PRN QID PRN Milk Of Magnesia (Magnesium Hydroxide) 2,400 Mg/10 Ml Oral.susp 2,400 Mg PO PRN QHS PRN Mag-Al Plus Xs Suspension (Mag Hydrox/Al Hydrox/Simeth) 30 Ml Oral.susp 15 Ml PO PRN AFTMEALHC PRN Culturelle (Lactobacillus Rhamnosus Gg) 1 Each Capsule 1 Each PO BID Gabapentin (Gabapentin) 100 Mg Capsule 100 Mg PO TID Albuterol Sulfate Neb Soln (Albuterol Sulfate) 2.5 Mg/3 Ml Vial.neb 2.5 Mg NEB RTQID Depakote Sprinkle (Divalproex Sodium) 125 Mg Cap.sprink 625 Mg PO BID [occuvite] 1 Tab PO DAILY Pyridium (Phenazopyridine Hcl) 100 Mg Tablet 100 Mg PO PRN TID PRN Trazodone Hcl 50 Mg Tablet 25 Mg PO PRN QHS PRN Premarin (Estrogens, Conjugated) 30 Gm Cream.appl 0.5 Gm VG PRN DAILY PRN Multivitamins (Multivitamin) 1 Each Tablet 1 Tab PO DAILY Trazodone Hcl 50 Mg Tablet 25 Mg PO BID PRN [place] Saline (Sodium Chloride) 50 Ml Drops 2 Drop NS QID Miralax (Polyethylene Glycol 3350) 17 Gm Powd.pack 17 Gm PO PRN BID PRN Protonix (Pantoprazole Sodium) 40 Mg Tablet.dr 40 Mg PO DAILY Zyprexa (Olanzapine) 5 Mg Tablet 5 Mg PO PRN DAILY PRN Lisinopril 10 Mg Tablet 10 Mg PO DAILY [lidoderm] 1 Patch TD DAILY Levothyroxine Sodium 75 Mcg Tablet 75 Mcg PO DAILYAC Ipratropium Cassel 0.2 Mg/1 Ml Solution 0.2 Mg IH PRN Q6HRS PRN Hydrocodone-Apap 5-325 (Hydrocodone Bit/Acetaminophen) 1 Each Tablet 1 Tab PO PRN Q12HR PRN Hydralazine Hcl 10 Mg Tablet 10 Mg PO TID Lovenox (Enoxaparin Sodium) 40 Mg/0.4 Ml Disp.syrin 40 Mg SQ DAILY Donepezil Hcl 10 Mg Tablet 10 Mg PO HS Colace (Docusate Sodium) 100 Mg Capsule 100 Mg PO PRN DAILY PRN Depakote Er (Divalproex Sodium) 500 Mg Tab.er.24h 750 Mg PO HS Coreg (Carvedilol) 6.25 Mg Tablet 6.25 Mg PO BIDWMEALS Symbicort 160-4.5 Mcg Inhaler (Budesonide/Formoterol Fumarate) 10.2 Gm Hfa.aer.ad 2 Puff IH BID Lipitor (Atorvastatin Calcium) 20 Mg Tablet 20 Mg PO QHS Aspirin Ec (Aspirin) 325 Mg Tablet. 325 Mg PO DAILY Amlodipine Besylate 10 Mg Tablet 10 Mg PO DAILY Albuterol Sulfate Conc Neb Soln (Albuterol Sulfate) 2.5 Mg/0.5 Ml Vial.neb 2.5 Mg NEB PRN Q6HRS PRN Acetaminophen 650 Mg/20.3 Ml Solution 650 Mg PO PRN Q6HRS PRN I have reviewed the current psychotropics carefully including drug interactions. Risk benefit ratio favors no change other than as noted in my dictated progress note. Diagnosis: Problems: (1) Dementia with behavioral disturbance (2) Anxiety disorder (3) Major depressive disorder, recurrent episode (4) Psychosis, atypical (5) Impulse control disorder GWEN ROY MD Apr 21, 2018 09:15
[2018-04-21] MEDS: BUDESONIDE 0.5 MG/2 ML NEBU NEB SCH (09:41)
[2018-04-21] MEDS: OLANZapine 5 MG TABLET PO PRN (12:21)
[2018-04-21] MEDS: QUEtiapine 25 MG TABLET. PO SCH (12:23)
--- NOTE | 2018-04-22 01:59 | PN ---
DATE: 04/20/2018 PSYCHIATRIC PROGRESS NOTE This late entry 04/20/2018 covers the elements not covered in my initial note. SUBJECTIVE: I met with the patient in the evening. The patient slept 8-1/2 hours previous night. She is oriented to herself, place, and year. She attended groups with ____, social service staff and then voiced some depressive symptoms and not wanting to live because her family does not care for her. When I questioned her closely on this in the evening, she denied suicidal ideation. She does have a UTI and is on Levaquin for this. [facility] is unable to give her PRNs atypical antipsychotics and we will stop the Zyprexa p.r.n. REVIEW OF SYSTEMS: Ambulation impaired, in wheelchair, some shortness of breath on O2 supplements. No CV, GI, , eye system symptoms on review. MENTAL STATUS EXAM: Oriented to herself and situation. Speech is coherent, has some latency. Abstraction fair, computation impaired, language function intact, attention span short. Mood and affect less depressed. No suicidal ideation. LABORATORY DATA: Reviewed. IMPRESSION: Major depressive disorder, recurrent, in partial remission; bipolar 1 disorder, unspecified; cognitive disorder, unspecified. PLAN: No change from initial note other than what is noted above. GWEN ROY MD DR: HERMELINDA/alexandra JOB#: [id number] / [id number]
--- NOTE | 2018-04-22 10:57 | PDOC ---
Exam Note: Akshat Note: Late entry for DOD 04/21/2018. Please also refer to the separate dictated note~ for this date of service dictated separately.~Patient seen individually. Discussed the patient with Nursing staff reviewed the chart.~Reviewed interim history and current functioning. Reviewed vital signs,~Labs/ Radiology~and current medications noted below. Continue current treatment with the changes noted in the dictated addendum note Assessment: Vital Signs: VS - Last 72 Hours, by Label Date Time Temp Pulse Resp B/P (MAP) Pulse Ox O2 Delivery O2 Flow Rate FiO2 04/21/18 10:24 98 Room Air 04/21/18 09:43 98 Nasal Cannula 2.0 04/21/18 08:48 97 Room Air 04/21/18 08:44 70 162/83 04/21/18 08:44 70 162/83 04/21/18 05:50 98.2 70 19 162/83 (109) 97 04/21/18 05:00 96 Nasal Cannula 2.0 04/20/18 19:50 97 Nasal Cannula 2.0 04/20/18 19:42 97 Nasal Cannula 2.0 04/20/18 19:40 87 Room Air 04/20/18 18:03 61 135/68 04/20/18 16:32 97.4 61 16 135/68 (90) 97 04/20/18 15:32 96 Nasal Cannula 2.0 04/20/18 11:30 95 Room Air 04/20/18 08:44 60 134/58 04/20/18 08:44 60 134/58 04/20/18 05:57 97.4 60 16 134/58 (83) 95 04/20/18 05:10 96 Nasal Cannula 2.0 04/19/18 20:25 97 Nasal Cannula 2.0 04/19/18 17:58 65 126/76 04/19/18 15:58 97.3 65 18 126/76 (93) 97 2.0 04/19/18 15:39 94 Nasal Cannula 2.0 Vital Signs Date Time Temp Pulse Resp B/P (MAP) Pulse Ox O2 Delivery O2 Flow Rate FiO2 04/21/18 10:24 98 Room Air 04/21/18 09:43 2.0 04/21/18 08:44 70 162/83 04/21/18 05:50 98.2 19 I&O Intake and Output 04/22/18 07:01 Intake Total 960 ml Balance 960 ml Intake Oral 960 ml # Bowel Movements 2 Current Medications: Meds: Current Medications Multi-Ingredient Ointment (Analgesic [place]) 1 iwona PRN QID PRN TP MUSCLE PAIN; Start 03/27/18 at 18:45; Stop 04/21/18 at 15:14; Status DC Al Hydroxide/Mg Hydroxide (Mylanta Plus Xs) 15 ml PRN AFTMEALHC PRN PO DYSPEPSIA; Start 03/27/18 at 18:45; Stop 04/21/18 at 15:14; Status DC Magnesium Hydroxide (Milk Of Magnesia) 2,400 mg PRN QHS PRN PO CONSTIPATION; Start 03/27/18 at 18:45; Stop 04/21/18 at 15:14; Status DC Aspirin (Aspirin Enteric Coated) 325 mg DAILY PO Last administered on at 08:45; Start 03/28/18 at 09:00; Stop 04/21/18 at 15:14; Status DC Atorvastatin Calcium (Lipitor) 20 mg QHS PO Last administered on 04/20/18at 20: 18; Start 03/27/18 at 21:00; Stop 04/21/18 at 15:14; Status DC Estrogens Conjugated (Premarin) 0.5 iwona PRN DAILY PRN VG vaginal dryness; Start 03/27/18 at 19:15; Stop 04/21/18 at 15:14; Status DC Acetaminophen/ Hydrocodone Bitart (Lortab 5/325) 1 tab PRN Q12HR PRN PO PAIN Last administered on 03/30/18at 09:06; Start 03/27/18 at 19:15; Stop 03/30/18 at 15:02; Status DC Ipratropium [place] (Atrovent) 0.2 mg PRN Q6HRS PRN IH SHORTNESS OF BREATH; Start 03/27/18 at 19:15; Stop 04/21/18 at 15:14; Status DC Levothyroxine Sodium (Synthroid) 75 mcg DAILYAC PO Last administered on at 08:40; Start 03/28/18 at 07:30; Stop 03/28/18 at 12:26; Status DC Lisinopril (Prinivil) 10 mg DAILY PO Last administered on 04/21/18at 08:44; Start 03/28/18 at 09:00; Stop 04/21/18 at 15:14; Status DC Acetaminophen (Tylenol) 650 mg PRN Q6HRS PRN PO PAIN / TEMP Last administered on 04/10/18at 06:01; Start 03/27/18 at 19:45; Stop 04/21/18 at 15:14; Status DC Non-Formulary Medication (Albuterol Sulfate (Albuterol Sulfate Conc Neb Soln)) 2.5 mg PRN Q6HRS PRN NEB SHORTNESS OF BREATH; Start 03/27/18 at 19:15; Status UNV Amlodipine Besylate (Norvasc) 10 mg DAILY PO Last administered on 03/31/18at 08 :38; Start 03/28/18 at 09:00; Stop 03/31/18 at 12:27; Status DC Non-Formulary Medication (Budesonide/ Formoterol Fumarate (Symbicort 160-4.5 Mcg Inhaler)) 2 puff BID IH ; Start 03/27/18 at 21:00; Status UNV Carvedilol (Coreg) 6.25 mg BIDWMEALS PO Last administered on 04/21/18at 08:44; Start 03/27/18 at 20:00; Stop 04/21/18 at 15:14; Status DC Divalproex Sodium (Depakote Er) 750 mg QHS PO Last administered on 03/27/18at 20:53; Start 03/27/18 at 21:00; Stop 03/28/18 at 21:13; Status DC Docusate Sodium (Colace) 100 mg PRN DAILY PRN PO HARD STOOLS; Start 03/27/18 at 19:45; Stop 04/21/18 at 15:14; Status DC Donepezil HCl (Aricept) 10 mg QHS PO Last administered on 04/20/18at 20:18; Start 03/27/18 at 21:00; Stop 04/21/18 at 15:14; Status DC Enoxaparin Sodium (Lovenox 40mg Syringe) 40 mg DAILY SQ Last administered on at 08:45; Start 03/28/18 at 09:00; Stop 04/21/18 at 15:14; Status DC Hydralazine HCl (Apresoline) 10 mg TID PO Last administered on 03/31/18at 08:39 ; Start 03/27/18 at 21:00; Stop 03/31/18 at 12:27; Status DC Multivitamins/ Calcium (Thera-M Plus) 1 tab DAILY PO Last administered on at 08:45; Start 03/28/18 at 09:00; Stop 04/21/18 at 15:14; Status DC Olanzapine (ZyPREXA) 5 mg PRN DAILY PRN PO ANXIETY/AGITATION Last administered on 04/21/18at 12:21; Start 03/28/18 at 09:00; Stop 04/21/18 at 15:14; Status DC Pantoprazole Sodium (Protonix) 40 mg DAILYAC PO Last administered on 04/21/18at 07:34; Start 03/28/18 at 07:30; Stop 04/21/18 at 15:14; Status DC Phenazopyridine HCl (Pyridium) 100 mg PRN TID PRN PO URINARY PAIN; Start 03/27 at 19:45; Stop 04/21/18 at 15:14; Status DC Polyethylene Glycol (miraLAX) 17 gm PRN BID PRN PO CONSTIPATION; Start at 09:00; Stop 04/21/18 at 15:14; Status DC Sodium Chloride (Saline Mist Nasal) 1 iwona QID NS ; Start 03/27/18 at 21:00; Status Cancel Trazodone HCl (Desyrel) 25 mg PRN BID PRN PO ANXIETY/AGITATION; Start at 19:45; Stop 04/21/18 at 15:14; Status DC Trazodone HCl (Desyrel) 50 mg PRN QHS PRN PO INSOMNIA; Start 03/27/18 at 19:45 ; Stop 04/21/18 at 15:14; Status DC Lidocaine (Lidoderm) 1 patch DAILY TD Last administered on 04/21/18at 08:46; Start 03/28/18 at 09:00; Stop 04/21/18 at 15:14; Status DC Multivitamins/ Minerals (I-Angelo) 1 tab DAILY PO Last administered on 04/21/18at 08:43; Start 03/28/18 at 09:00; Stop 04/21/18 at 15:14; Status DC Miscellaneous (Lidoderm Patch Removal) 1 ea QHS MC Last administered on at 20:21; Start 03/27/18 at 21:00; Stop 04/21/18 at 15:14; Status DC Albuterol Sulfate (Ventolin) 2.5 mg PRN Q6HRS PRN NEB SHORTNESS OF BREATH Last administered on 04/17/18at 20:13; Start 03/27/18 at 19:45; Stop 04/21/18 at 15: 14; Status DC Albuterol Sulfate (Ventolin) 2.5 mg RTQID NEB Last administered on 04/21/18at 09 :41; Start 03/27/18 at 20:00; Stop 04/21/18 at 15:14; Status DC Budesonide (Pulmicort) 0.5 mg RTBID NEB Last administered on 04/21/18at 09:41; Start 03/27/18 at 20:00; Stop 04/21/18 at 15:14; Status DC Sodium Chloride ([place] Saline Nasal) 2 iwona QID NS ; Start 03/27/18 at 21:00; Stop 03/28/18 at 13:08; Status DC Levothyroxine Sodium (Synthroid) 75 mcg DAILY06 PO Last administered on at 05:59; Start 03/29/18 at 06:00; Stop 04/21/18 at 15:14; Status DC Sodium Chloride (Saline Mist Nasal) 1 iwona PRN QID PRN NS NASAL CONGESTION; Start 03/28/18 at 13:15; Stop 04/21/18 at 15:14; Status DC Divalproex Sodium (Depakote Sprinkles) 750 mg HS PO Last administered on at 20:20; Start 03/28/18 at 21:30; Stop 03/30/18 at 14:27; Status DC Sertraline HCl (Zoloft) 25 mg DAILY PO Last administered on 03/31/18at 08:39; Start 03/29/18 at 09:00; Stop 03/31/18 at 09:01; Status DC Sertraline HCl (Zoloft) 50 mg DAILY PO Last administered on 04/19/18at 08:12; Start 04/01/18 at 09:00; Stop 04/19/18 at 13:49; Status DC Divalproex Sodium (Depakote Sprinkles) 500 mg BID94 PO Last administered on at 07:55; Start 03/30/18 at 09:00; Stop 03/30/18 at 14:27; Status DC Quetiapine Fumarate (SEROquel) 12.5 mg 1300 PO Last administered on 04/21/18at 12:23; Start 03/30/18 at 13:00; Stop 04/21/18 at 15:14; Status DC Divalproex Sodium (Depakote Sprinkles) 500 mg BID PO Last administered on 04/01at 09:59; Start 03/30/18 at 21:00; Stop 04/01/18 at 17:43; Status DC Acetaminophen/ Hydrocodone Bitart (Lortab 5/325) 1 tab PRN Q6HRS PRN PO PAIN Last administered on 04/21/18 08:48; Start 03/30/18 at 15:15; Stop 04/21/18 at 15:14; Status DC Olanzapine (ZyPREXA ZYDIS) 2.5 mg PRN Q2HR PRN PO PSYCHOSIS Last administered on 04/17/18at 19:46; Start 03/30/18 at 19:15; Stop 04/20/18 at 17:07; Status DC Divalproex Sodium (Depakote Sprinkles) 625 mg BID PO Last administered on at 08:43; Start 04/01/18 at 21:00; Stop 04/21/18 at 15:14; Status DC Ondansetron HCl (Zofran Odt) 4 mg PRN Q8HRS PRN PO NAUSEA/VOMITING Last administered on 04/17/18 19:39; Start 04/09/18 at 08:30; Stop 04/21/18 at 15:14 ; Status DC Levofloxacin (Levaquin) 750 mg DAILY06 PO Last administered on 04/21/18 05:59 ; Start 04/16/18 at 19:45; Stop 04/21/18 at 15:14; Status DC Lactobacillus Rhamnosus (Culturelle) 1 cap BID PO Last administered on 08:44; Start 04/16/18 at 21:00; Stop 04/21/18 at 15:14; Status DC Gabapentin (Neurontin) 100 mg TID PO Last administered on 04/21/18at 13:00; Start 04/19/18 at 21:00; Stop 04/21/18 at 15:14; Status DC Sertraline HCl (Zoloft) 75 mg DAILY PO Last administered on 04/21/18at 08:43; Start 04/20/18 at 09:00; Stop 04/21/18 at 15:14; Status DC Active Scripts Active Reported Levofloxacin 750 Mg Tablet 750 Mg PO DAILY06 Zoloft (Sertraline Hcl) 25 Mg Tablet 75 Mg PO DAILY Quetiapine Fumarate 25 Mg Tablet 12.5 Mg PO DAILY@1300 Zofran (Ondansetron Hcl) 4 Mg Tablet 4 Mg PO PRN Q8HRS PRN Analgesic [place] (Methyl Salicylate/Menthol) 28 Gm Oint...g. 1 [place] TP PRN QID PRN Milk Of Magnesia (Magnesium Hydroxide) 2,400 Mg/10 Ml Oral.susp 2,400 Mg PO PRN QHS PRN Mag-Al Plus Xs Suspension (Mag Hydrox/Al Hydrox/Simeth) 30 Ml Oral.susp 15 Ml PO PRN AFTMEALHC PRN Culturelle (Lactobacillus Rhamnosus Gg) 1 Each Capsule 1 Each PO BID Gabapentin (Gabapentin) 100 Mg Capsule 100 Mg PO TID Albuterol Sulfate Neb Soln (Albuterol Sulfate) 2.5 Mg/3 Ml Vial.neb 2.5 Mg NEB RTQID Depakote Sprinkle (Divalproex Sodium) 125 Mg Cap.sprink 625 Mg PO BID [occuvite] 1 Tab PO DAILY Pyridium (Phenazopyridine Hcl) 100 Mg Tablet 100 Mg PO PRN TID PRN Trazodone Hcl 50 Mg Tablet 50 Mg PO PRN QHS PRN Premarin (Estrogens, Conjugated) 30 Gm Cream.appl 0.5 Gm VG PRN DAILY PRN Multivitamins (Multivitamin) 1 Each Tablet 1 Tab PO DAILY Trazodone Hcl 50 Mg Tablet 25 Mg PO BID PRN [place] Saline (Sodium Chloride) 50 Ml Drops 1 Iw[place] NS PRN QID PRN Miralax (Polyethylene Glycol 3350) 17 Gm Powd.pack 17 Gm PO PRN BID PRN Protonix (Pantoprazole Sodium) 40 Mg Tablet.dr 40 Mg PO DAILYAC Lisinopril 10 Mg Tablet 10 Mg PO DAILY [lidoderm] 1 Patch TD DAILY Levothyroxine Sodium 75 Mcg Tablet 75 Mcg PO DAILY06 Ipratropium [place] 0.2 Mg/1 Ml Solution 0.2 Mg IH PRN Q6HRS PRN Hydrocodone-Apap 5-325 (Hydrocodone Bit/Acetaminophen) 1 Each Tablet 1 Tab PO PRN Q6HRS PRN Lovenox (Enoxaparin Sodium) 40 Mg/0.4 Ml Disp.syrin 40 Mg SQ DAILY Donepezil Hcl 10 Mg Tablet 10 Mg PO HS Colace (Docusate Sodium) 100 Mg Capsule 100 Mg PO PRN DAILY PRN Coreg (Carvedilol) 6.25 Mg Tablet 6.25 Mg PO BIDWMEALS Symbicort 160-4.5 Mcg Inhaler (Budesonide/Formoterol Fumarate) 10.2 Gm Hfa.aer.ad 2 Puff IH BID Lipitor (Atorvastatin Calcium) 20 Mg Tablet 20 Mg PO QHS Aspirin Ec (Aspirin) 325 Mg Tablet.dr 325 Mg PO DAILY Albuterol Sulfate Conc Neb Soln (Albuterol Sulfate) 2.5 Mg/0.5 Ml Vial.neb 2.5 Mg NEB PRN Q6HRS PRN Acetaminophen 650 Mg/20.3 Ml Solution 650 Mg PO PRN Q6HRS PRN I have reviewed the current psychotropics carefully including drug interactions. Risk benefit ratio favors no change other than as noted in my dictated progress note. Diagnosis: Problems: (1) Dementia with behavioral disturbance (2) Anxiety disorder (3) Major depressive disorder, recurrent episode (4) Psychosis, atypical (5) Impulse control disorder GWEN ROY MD Apr 22, 2018 10:57
--- NOTE | 2018-04-22 13:05 | DS ---
DATE OF DISCHARGE: 04/21/2018 DISCHARGE SUMMARY/PSYCHIATRIC PROGRESS NOTE This late entry, date of service, 04/21/2017, covers elements not covered in my initial note. REASON FOR ADMISSION: Please refer to the admission history for details. Briefly, the patient is an 87-year-old female, referred to us from [facility] where she had been an inpatient for an extended period of time. She is admitted by her son who had been appointed her guardian by the court. She had been reportedly increasingly agitated, cursing, yelling out, trying to wrap the call light around her neck. She is a retired nurse and was felt to be progressively more confused, psychotic and referred for inpatient psychiatric stabilization. Previously, she had been living for a short period of time with her son and his significant other, but she resented the home environment, multiple pets in the home and other disruptions which she used as an explanation for her behaviors, prompting the initial referral to . Family shared that she had a long history of bipolar disorder, but we were unable to obtain any relevant records from the past for this other than the [facility] records from the very recent hospitalization. SIGNIFICANT FINDINGS AND CLINICAL COURSE: Following admission, the patient was seen daily individually by myself from a psychiatric standpoint, medical followup with Dr. Quiles. She is hard of hearing. Ambulation was impaired in wheelchair and she had some shortness of breath, was on O2 supplements. She did have some short term memory deficits, appear depressed, paranoid. Adjustments were made in her psychotropics and she seemed to respond to a combination of trazodone 25 mg b.i.d. p.r.n. for anxiety, 50 mg at bedtime p.r.n. insomnia; Aricept 10 mg a day, Zoloft 75 mg a day, Depakote Sprinkles 625 mg b.i.d. with a Valproic acid level therapeutic at 54, Seroquel 12.5 mg daily at 1300, gabapentin 100 mg 3 times a day, and Zyprexa p.r.n. REVIEW OF SYSTEMS: Prior to discharge of 04/21/2018, ambulation impaired, in wheelchair, shortness of breath, on O2 supplements. No CV, , GI, eye system symptoms on review. MENTAL STATUS EXAM: Oriented to herself and situation. Speech has some latency, coherent. Abstraction fair, computation impaired, language function intact, attention span short. Mood and affect was improved. No suicidal ideation at discharge. FINAL DIAGNOSES: Major depressive disorder, recurrent, in partial remission; possible or probable bipolar 1 disorder, depressed, cognitive disorder, unspecified versus major neurocognitive disorder, early Alzheimer, vascular with depression; anxiety disorder, unspecified, rest unchanged from admission. DISCHARGE MEDICATIONS: Please refer to the MRAD. DISCHARGE INSTRUCTIONS: Outpatient psychiatric and medical followup at [facility] where I will follow her from a psychiatric standpoint. Time for discharge day management greater than 30 minutes. MAN Rk ROY MD DR: HERMELINDA/alexandra JOB#: [id number] / [id number]
== END 2018-04-21 14:50 | DRG 885 ==
LOC: GEROPSY 12:02
PROVIDERS: ADMIT Psychiatry & Neurology Psychiatry; ATTEND Psychiatry & Neurology Psychiatry
DX: F31.30 Bipolar disorder, current episode depressed, mild or moderate severity, unspecified (principal); E43 Unspecified severe protein-calorie malnutrition; F01.51 Vascular dementia, unspecified severity, with behavioral disturbance; F02.81 Dementia in other diseases classified elsewhere, unspecified severity, with behavioral disturbance; J96.11 Chronic respiratory failure with hypoxia; N39.0 Urinary tract infection, site not specified; E03.9 Hypothyroidism, unspecified; E78.5 Hyperlipidemia, unspecified; F09 Unspecified mental disorder due to known physiological condition; F41.9 Anxiety disorder, unspecified; F63.9 Impulse disorder, unspecified; G30.9 Alzheimer's disease, unspecified; G89.29 Other chronic pain; H91.90 Unspecified hearing loss, unspecified ear; I10 Essential (primary) hypertension; I25.10 Atherosclerotic heart disease of native coronary artery without angina pectoris; J45.909 Unspecified asthma, uncomplicated; M15.9 Polyosteoarthritis, unspecified; M81.0 Age-related osteoporosis without current pathological fracture; R32 Unspecified urinary incontinence; Z66 Do not resuscitate; Z79.899 Other long term (current) drug therapy; Z80.3 Family history of malignant neoplasm of breast; Z91.5 Personal history of self-harm; Z98.1 Arthrodesis status; Z99.81 Dependence on supplemental oxygen; Z68.29 Body mass index [BMI] 29.0-29.9, adult; Z88.0 Allergy status to penicillin; Z88.2 Allergy status to sulfonamides; Z88.8 Allergy status to other drugs, medicaments and biological substances
CPT/HCPCS: 36415; 71045; 80053; 80061; 80164; 81001; 82306; 82607; 83036; 83540; 83550; 83735; 84436; 84443; 84480; 85025; 86592; 87086; 87186; 87493; 94640; 94760; J1650; J7613; J7626; Q0162; 97110; 97116; 97530; 97535